=== PATIENT | male | born 1980 | race Caucasian/White ===

== ENCOUNTER 2018-06-08 09:27 | Emergency (ER) | payer SELFPAY ==
[2018-06-08 09:30] VITALS: BP 147/79; PULSE 76; RESP 17; TEMP 36.9; O2SAT 100
--- NOTE | 2018-06-08 09:50 | ED.RN ---
LT BUTTOCKS NUMB DOWN THRU LT LEG. ABRASION TO LT FLANK.
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
[2018-06-08 10:32] LABS: Absolute Lymphocyte Count 1.17 X10^3/ul (0.83-4.51); Basophil# 0.01 X10^3/uL; Basophil% 0.2 % (0-1); Eosinophil# 0.14 X10^3/uL; Eosinophils% 2.4 % (0-5); Hematocrit 40.4 % (40-54); Hemoglobin 13.8 g/dl (13.0-16.5); Lymphocyte # 1.17 X10^3/ul (4.0); Lymphocyte % 19.7 % (19-41); Mean Corp Hgb Conc 34.2 g/gl (32-36); Mean Corpuscular Hgb 31.2 pg (27.0-32.0); Mean Corpuscular Volume 91.4 fL (80-94); Mean Platelet Vol. 10.1 fl (6.2-12.0); Monocyte# 0.58 X10^3/uL; Monocyte% 9.8 % (0-10); Neutrophil # 4.03 X10^3/uL (2.7-7.7); Neutrophil % 67.9 % (47-70); Platelet Count 194 K/mm3 (150-450); RBC Distribution Width CV 12.6 % (11.6-14.6); RBC Distribution Width SD 41.9 fl (35.1-43.9); Red Blood Count 4.42 M/mm3 (4.6-6.2); White Blood Count 5.9 K/mm3 (4.4-11.0)
[2018-06-08 10:33] LABS: POSITIVE COUNT NO; POSITIVE DIFFERENTIAL NO; POSITIVE MORPHOLOGY NO
[2018-06-08 10:39] LABS: International Normalized Ratio 1.1; Prothrombin Time (Protime)PT. 14.3 SECONDS (11.7-14.9)
[2018-06-08 10:40] LABS: Partial Thromboplast Time 26.9 Seconds (24.1-36.2)
[2018-06-08 10:44] LABS: Anion Gap 7 (5-15); BUN 10 mg/dL (7-18); BUN/Creat Ratio 10.2 RATIO (10-20); Calcium,Total 8.8 mg/dL (8.5-10.1); Chloride 106 mmol/L (98-107); Creatinine, Serum 0.98 mg/dL (0.70-1.30); EST Glomerular Filtration Rate 91 mL/min (>60); Est Glom Filt Rate - Afr Amer 110 mL/min (>60); Estimated Creatinine Clearance 8.61 ml/min; Glucose 86 mg/dL (74-106); Sodium Level 143 mmol/L (136-145)
[2018-06-08] MEDS: Morphine 4 MG/ML Syringe IV (10:56)
[2018-06-08] MEDS: Ondansetron 4 MG/2 ML Vial IV (10:56)
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
[2018-06-08 13:05] VITALS: BP 118/76; PULSE 76; RESP 18; O2SAT 98
[2018-06-08 13:45] VITALS: BP 119/78; PULSE 78; RESP 16; O2SAT 99
== END 2018-06-08 13:46 | disposition home or self-care (01) ==
PROVIDERS: Emergency Provider Emergency Medicine
DX: S20.222A Contusion of left back wall of thorax, initial encounter (principal); S30.0XXA Contusion of lower back and pelvis, initial encounter; S70.12XA Contusion of left thigh, initial encounter; S30.810A Abrasion of lower back and pelvis, initial encounter; S30.811A Abrasion of abdominal wall, initial encounter; S70.312A Abrasion, left thigh, initial encounter; V86.59XA Driver of other special all-terrain or other off-road motor vehicle injured in nontraffic accident, initial encounter; Y93.I9 Activity, other involving external motion; Y92.9 Unspecified place or not applicable; R20.0 Anesthesia of skin
CPT/HCPCS: 36415; 71260; 73552; 74177; 80048; 85025; 85610; 85730; 96374; 96375; 99282; Q9967; A4216; J2405

== ENCOUNTER 2018-06-13 10:58 | Emergency (ER) | payer SELFPAY ==
[2018-06-13 11:00] VITALS: BP 115/73; PULSE 86; RESP 16; TEMP 37; O2SAT 98; BMI 21.9
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
[2018-06-13 11:57] LABS: Mucous, Urine 0 SEEN /hpf (<or=2+); Red Blood Cells-Urine 0 SEEN /hpf (0-5); Squamous Epithelial Cells - UA 0 SEEN /hpf (0-5)
[2018-06-13 12:06] LABS: Color, Urine Yellow (Yellow); Glucose, Dipstick Normal (Normal); Ketone-Dipstick Negative (Negative); Leukocyte Esterase-Dipstick Negative /ul (Negative); Nitrite-Dipstick Negative (Negative); Occult Blood-Urine Negative /ul (Negative); Protein-Dipstick 30 mg/dl (Negative); Urine Bilirubin Dipstick Negative (Negative); Urine Clarity Sl. Cloudy (Clear); Urine Urobilinogen Normal (Normal)
[2018-06-13] MEDS: proMETHazine 25 MG/ML Syringe 6.25 MG IV (12:10)
[2018-06-13] MEDS: Morphine 4 MG/ML Syringe IV (12:10)
[2018-06-13 12:12] LABS: Bacteria RARE /hpf (None Seen); White Blood Cells 0-5 SEEN /hpf (0-5)
[2018-06-13 12:21] LABS: Absolute Lymphocyte Count 1.09 X10^3/ul (0.83-4.51); Basophil# 0.02 X10^3/uL; Basophil% 0.4 % (0-1); Eosinophil# 0.06 X10^3/uL; Eosinophils% 1.1 % (0-5); Hematocrit 38.2 % (40-54); Hemoglobin 12.9 g/dl (13.0-16.5); Lymphocyte # 1.09 X10^3/ul (4.0); Lymphocyte % 19.3 % (19-41); Mean Corp Hgb Conc 33.8 g/gl (32-36); Mean Corpuscular Volume 91.8 fL (80-94); Monocyte# 0.44 X10^3/uL; Monocyte% 7.8 % (0-10); Neutrophil # 4.03 X10^3/uL (2.7-7.7); Neutrophil % 71.2 % (47-70); Platelet Count 237 K/mm3 (150-450); RBC Distribution Width CV 12.4 % (11.6-14.6); RBC Distribution Width SD 40.3 fl (35.1-43.9); Red Blood Count 4.16 M/mm3 (4.6-6.2); White Blood Count 5.7 K/mm3 (4.4-11.0)
[2018-06-13 12:23] LABS: POSITIVE COUNT NO; POSITIVE DIFFERENTIAL NO; POSITIVE MORPHOLOGY NO
[2018-06-13 12:34] LABS: Anion Gap 6 (5-15); BUN 14 mg/dL (7-18); BUN/Creat Ratio 13.2 RATIO (10-20); Chloride 107 mmol/L (98-107); Creatinine, Serum 1.06 mg/dL (0.70-1.30); EST Glomerular Filtration Rate 83 mL/min (>60); Est Glom Filt Rate - Afr Amer 101 mL/min (>60); Estimated Creatinine Clearance 83.25 ml/min; Glucose 87 mg/dL (74-106); Potassium 4.7 mmol/L (3.5-5.1); Sodium Level 141 mmol/L (136-145)
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
--- NOTE | 2018-06-13 15:24 | ED.DEP ---
ED Disposition - Plan for ED Patient: Chief Complaint: Back Instructions: ED Contusion Back Prescriptions: Oxycodone HCl/Acetaminophen [Percocet 5/325] 1 tablet PO Q6H PRN PRN 3 Days #12 tablet PRN Reason: Pain Referrals: Care Physician,No Primary [Primary Care Provider] - Alexis Howell III, MD [STAFF PHYSICIAN] -
[2018-06-13 15:38] VITALS: BP 124/77; PULSE 71; RESP 14; O2SAT 98
== END 2018-06-13 15:41 | disposition home or self-care (01) ==
LOC: ED 12:16
PROVIDERS: Emergency Provider Emergency Medicine
DX: S30.0XXA Contusion of lower back and pelvis, initial encounter (principal); V86.95XA Unspecified occupant of 3- or 4- wheeled all-terrain vehicle (ATV) injured in nontraffic accident, initial encounter; Y93.I9 Activity, other involving external motion; Y92.9 Unspecified place or not applicable
CPT/HCPCS: 74177; 80048; 81001; 85025; 96374; 96375; 99283; Q9967; A4216

== ENCOUNTER 2021-07-13 18:33 | Emergency (ER) | payer OTHER, SELFPAY ==
[2021-07-13 18:35] VITALS: PULSE 63; RESP 16; TEMP 36.6; O2SAT 99; BMI 25.4
[2021-07-13] MEDS: DiphenhydrAMINE 50 MG/ML Syringe IV (18:40)
[2021-07-13] MEDS: MethylPREDNISolone 125 MG/2 ML Vial IV (18:40)
[2021-07-13] MEDS: Famotidine 200 MG/20 ML MDV 40 MG in 0.9% Normal Saline (Pres. free 6 ML 300 MG IV (19:11)
[2021-07-13 19:33] VITALS: BP 135/80; PULSE 81; RESP 19; O2SAT 98
[2021-07-13 21:00] VITALS: BP 119/81; PULSE 79; RESP 20; O2SAT 99
--- NOTE | 2021-07-13 21:33 | EDS_ITS ---
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 He states he was stung on the right elbow about 20 minutes prior to arrival and is noticed increased redness and swelling and slight difficulty breathing and therefore comes to the hospital for evaluation. He states that he has had this type of reaction in the past but no longer has an epinephrine pen. He does state he took Benadryl prior to arrival PFSH PFS Home Medications epinephrine 0.3 mg IM .once PRN #2 ea 07/13/21 [Rx Last Taken Unknown] prednisone 40 mg PO DAILY #10 tab 07/13/21 [Rx Last Taken Unknown] Allergy/AdvReac Type Severity Reaction Status Date / Time bee venom protein (honey bee) Allergy Anaphylaxis Verified 07/13/21 18:34 Social History Smoking Status: Never smoker ROS ROS ED Constitutional Constitutional ED: Denies chills or fever(s) ENT ENT ED: Denies sore throat Cardiovascular Cardiovascular: Denies chest pain or palpitations Respiratory/Chest Respiratory/Chest: Reports dyspnea Gastrointestinal Gastrointestinal: Denies nausea or vomiting Musculoskeletal Musculoskeletal: Reports myalgias Integumentary Reports rash Neurologic Neurologic: Denies headache(s) Allergic/Immunologic Allergic/Immunologic ED: Reports mouth swelling EXAM Physical Exam Const Vital Signs: 07/13/21 18:35 07/13/21 19:33 07/13/21 21:00 Temperature 97.9 F Temperature Source Temporal Pulse Rate 63 81 79 Respiratory Rate 16 19 H 20 H Blood Pressure 135/80 H 119/81 H Blood Pressure Mean 98 93 Pulse Ox 99 98 99 Oxygen Delivery Method Room Air Room Air Room Air Positive well nourished and well developed General Appearance ED: well developed HEENT HEENT Narrative: There is slight swelling to the lips but no tongue swelling oral lesions or obvious airway compromise Eyes PERRL and EOMs intact bilaterally Neck supple Chest Wall inspection of chest normal Resp normal respiratory effort and clear to auscultation bilaterally Cardio regular rate, regular rhythm and no murmurs Extremity Extremity Narrative: Patient has mild swelling to the right elbow consistent wi th report of insect sting but there is no retained stinger noted. No asymmetric edema no pitting edema negative Homans' sign bilaterally Neuro oriented x3 and CN's II-XII intact bilaterally Sensorium / Orientation: alert Psych mental status grossly normal Skin Skin Narrative: Patient has diffuse blanchable erythema with swelling consistent with insect sting and allergic reaction but no signs of infectious process Rashes: rashes noted MDM MDM MDM Narrative Medical decision making narrative: Patient presented to the ER with mild facial swelling but no overt respiratory distress. He did state he felt like he was having difficulty breathing however and therefore I did elect to perform IM epinephrine along with IV Solu-Medrol Benadryl and Pepcid. Patient was watched in the hospital for approximately 2 and half hours with no rebound and had resolution of symptoms. Therefore he will be placed on symptomatic medications and is safe for discharge Discharge Plan Triage Chief Complaint: Allergic Reaction ED Provider: Patric Plascencia Dx/Rx/DC Orders Clinical Impression: Allergic reaction to bee sting Instructions: ED BEE STING General Allergic Rxn Prescriptions: New prednisone 20 mg tablet 40 mg PO DAILY Qty: 10 RF: 0 epinephrine 0.3 mg/0.3 mL auto-injector 0.3 mg IM .once PRN (Reason: anaphylaxis) Qty: 2 RF: 0 Primary Care Provider: Care Physician,No Primary Referrals: Abigail Carter DO [STAFF PHYSICIAN] - 1 Week Care Physician,No Primary [Primary Care Provider] - Disposition Disposition: Home, Self Care
[2021-07-13 22:12] VITALS: BP 117/65; PULSE 89; RESP 18; O2SAT 99
== END 2021-07-13 22:13 | disposition home or self-care (01) ==
PROVIDERS: Emergency Provider Emergency Medicine
DX: T63.441A Toxic effect of venom of bees, accidental (unintentional), initial encounter (principal)
CPT/HCPCS: 96372; 96374; 96375; 99283; J7030; A4216; J3490

== ENCOUNTER → 2022-10-07 | Outpatient (CLI) | payer BC, SELFPAY ==
--- NOTE | 2022-10-07 07:23 | MRI_ITS ---
STUDY: MRI RIGHT SHOULDER REASON FOR EXAM: Male, 42 years old. Anterior shoulder pain. TECHNIQUE: Standardized fat and water weighted pulse sequences were obtained in all 3 orthogonal planes. COMPARISON: None. FINDINGS: Minimal supraspinatus tendinosis without a full-thickness tear (coronal series 6 images 11-15). Minimal infraspinatus tendinosis with thinning/attenuation without a full-thickness tear (coronal series 6 images 6-10). Subscapularis tendinosis with a distal longitudinal partial tear and medial subluxation of the long head of the biceps into the tear (hidden lesion) (axial series 3 images 11-17). Normal teres minor tendon. Normal supraspinatus muscle. Normal infraspinatus muscle. Normal subscapularis muscle. Normal teres minor muscle. Mild arthrosis of the glenohumeral joint (axial series 3 images 11-14). Normal humeral head and visualized proximal humerus. Normal biceps labral complex. Medial subluxation of the long head of the biceps as described above. Normal labrum. Normal capsulo- ligamentous complex. Normal rotator interval. AC joint hypertrophy with narrowing of the subacromial space. Bone marrow edema in the distal clavicle and adjacent acromion compatible with stress-related changes (coronal series 6 images 7-15). There is a Type II morphology (curved), with a neutral orientation. Small amount of subacromial-subdeltoid bursal fluid (coronal series 6 image 9). Normal visualized coracohumeral and coracoacromial ligaments. Normal quadrilateral space. Normal axillary space. Normal deltoid muscle. Normal trapezius muscle. MRI/Upper Ext Joint Only(Routine) IMPRESSION: Supraspinatus and infraspinatus tendinosis without a full-thickness tear. Subscapularis tendinosis with a distal longitudinal partial tear and medial subluxation of the long head biceps into the tear (hidden lesion). Mild arthrosis of the glenohumeral joint. AC joint hypertrophy with narrowing of the subacromial space. Bone marrow edema in the distal clavicle and adjacent acromion compatible with stress-related changes. Small glenohumeral joint effusion with minimal fluid in the subacromial-subdeltoid bursa. Electronically Signed: Jared Chang, at 10:15 EST ,
--- NOTE | 2022-10-07 07:40 | RAD_ITS ---
EXAM: XR ORBITS FOREIGN BODY CLINICAL INDICATION: Pre MRI clearance, Hx of metal to eyes TECHNIQUE: Frontal view(s) of the orbits. This report was created using [facility] report generation technology. COMPARISON: None. FINDINGS: BONES/JOINTS: No acute abnormality. SINUSES: Normal. No air-fluid levels. SOFT TISSUES: Normal. No radiopaque foreign body. RAD/Orbits for Foreign Body IMPRESSION: Normal orbital x-rays. No radiopaque foreign body in either orbit. Electronically Signed: Sam Cruz MD at 8:14 EST ,
== END | disposition home or self-care (01) ==
PROVIDERS: Referring Provider Physician Assistant Surgical; Visit Provider Physician Assistant Surgical
DX: M25.511 Pain in right shoulder (principal)
CPT/HCPCS: 70030; 73221

== ENCOUNTER → 2023-12-21 | Outpatient (CLI) | payer BC, SELFPAY ==
--- NOTE | 2023-12-21 10:08 | RAD_ITS ---
INDICATION: inflammatory polyarthropathy EXAMINATION/TECHNIQUE: X-RAY - XR Pelvis 1 or 2 Views COMPARISON: No relevant prior comparison study available FINDINGS: PELVIC BONES: No displaced fracture, destructive or sclerotic lesions. Note that overlapping bowel shadows may however obscure fine detail. Sacroiliac joints are unremarkable. No widening of the pubic symphysis. Mild sclerosis and irregularity of the pubic symphysis, however evaluation is limited due to overlying soft tissue. HIPS: Mild asymmetric joint space narrowing of the hips. No osteophytes or sclerosis. No displaced fracture seen in this frontal view. SOFT TISSUES: No soft tissue swelling or gas. RAD/Pelvis 1 or 2 Views IMPRESSION: No acute abnormalities. Mild sclerosis and irregularity of the pubic symphysis could indicate osteitis pubis, however evaluation is limited due to overlying soft tissue. Mild degenerative changes of the hips. Electronically Signed: Lorenzo Rader MD at 19:26 EST ,
--- NOTE | 2023-12-21 10:08 | RAD_ITS ---
INDICATION: inflammatory polyarthropathy EXAMINATION/TECHNIQUE: X-RAY - XR Spine Lumbar Min 4 Views COMPARISON: None. FINDINGS: VERTEBRAE: Preserved vertebral body height. No fracture. No spondylolisthesis. Preservation of the normal lumbar lordosis. Mild multilevel facet arthropathy. DISCS: Mild multilevel degenerative disc disease and spondylosis, most notably at L5-S1. INCLUDED ABDOMEN: Included bowel gas pattern is non-obstructive. RAD/L/S Spine Min 4 Views IMPRESSION: No evidence of lumbar spinal fracture or spondylolisthesis. Mild multilevel degenerative disc disease and spondylosis, most notably at L5-S1. Electronically Signed: Lorenzo Rader MD at 19:15 EST ,
[2023-12-21 12:18] LABS: Erythrocyte Sedimentation Rate 1 mm/hr (0-20)
[2023-12-21 12:21] LABS: Absolute Lymphocyte Count 1.53 X10^3/uL (0.83-4.51); Absolute Neutrophil Count 2.6 X10^3/uL (2.0-7.7); Basophil# 0.03 X10^3/uL; Basophil% 0.6 % (0-1); Eosinophil# 0.14 X10^3/uL; Eosinophils% 2.9 % (0-5); Hematocrit 43.1 % (40-54); Hemoglobin 14.2 g/dL (13.0-16.5); Lymphocyte # 1.53 X10^3/ul (0.83-4.51); Lymphocyte % 31.9 % (19-41); Mean Corp Hgb Conc 32.9 g/dL (32-36); Mean Corpuscular Hgb 30.7 pg (27.0-32.0); Mean Corpuscular Volume 93.1 fL (80-94); Mean Platelet Vol. 10.3 fl (6.2-12.0); Monocyte# 0.48 X10^3/uL; NRBC Flagged by Analyzer 0 % (0-5); Neutrophil % 54.4 % (47-70); Platelet Count 243 K/mm3 (150-450); RBC Distribution Width CV 12.6 % (11.6-14.6); Red Blood Count 4.63 M/mm3 (4.6-6.2); White Blood Count 4.8 K/mm3 (4.4-11.0)
[2023-12-21 12:44] LABS: ALB/GLOB Ratio 1.7 RATIO (0.9-2.4); AST(SGOT) 16 U/L (15-37); Alanine Aminotransfer ALT/SGPT 27 U/L (16-61); Albumin, Serum 4.7 g/dL (3.2-5.0); Alkaline Phosphatase 78 U/L (45-117); Anion Gap 5 (5-15); BUN 17 mg/dL (7-18); BUN/Creat Ratio 16.2 RATIO (10-20); CRP < 2.90 mg/L (0.0-3.0); Calcium,Total 9.3 mg/dL (8.5-10.1); Chloride 107 mmol/L (98-107); Creatinine, Serum 1.05 mg/dL (0.70-1.30); EST Glomerular Filtration Rate 82 mL/min (>60); Est Glom Filt Rate - Afr Amer 99 mL/min (>60); Globulin 2.7 g/dL (2.2-4.2); Glucose 103 mg/dL (74-106); Potassium 4.6 mmol/L (3.5-5.1); Protein, Total 7.4 g/dL (6.4-8.2); Rheumatoid Factor < 10.0 IU/mL (<15); Sodium Level 139 mmol/L (136-145)
[2023-12-21 13:23] LABS: Hepatitis B Surface Antibody Non-Reactive; Hepatitis B Surface Antigen Non-Reactive (Nonreactive); Hepatitis C Antibody Non-Reactive (Nonreactive)
[2023-12-22 13:08] LABS: ANTINUCLEAR ANTIBODIES DIRECT Negative (Negative)
[2023-12-27 17:07] LABS: CCP IgG Antibodies 6 units (0-19); HLA B27 Negative (.)
== END | disposition home or self-care (01) ==
PROVIDERS: PCP Internal Medicine; Referring Provider Internal Medicine Rheumatology; Visit Provider Internal Medicine Rheumatology
DX: M46.90 Unspecified inflammatory spondylopathy, site unspecified (principal); L30.9 Dermatitis, unspecified
CPT/HCPCS: 36415; 72110; 72170; 80053; 81374; 85025; 85652; 86038; 86140; 86200; 86431; 86706; 86803; 87340

== ENCOUNTER → 2023-12-22 | Outpatient (CLI) | payer BC, SELFPAY ==
--- OUTSIDE RECORDS SUMMARY | 2023-12-22 08:51 | XMS RPT_ITS | CCD ---
Author Name Unknown Address [address] [place] [address] Organization [facility] Care Team Providers Care Trimmer Meat Name Role Phone Amanuel Tate DO Primary Care Provider ADRY RUGGIERO Attending Unavailable ADRY RUGGIERO Admitting Unavailable TATE, AMANUEL L Primary Care Unavailable HANNAH, YUMI Attending Unavailable TATE, AMANUEL L Primary Care Unavailable ADRY RUGGIERO Referring Unavailable TATE, AMANUEL L Primary Care Unavailable TATE, AMANUEL L Primary Care Unavailable TEDDY BEAR Referring Unavailable LAINE JON Attending Unavailable TATE, AMANUEL L Primary Care Unavailable HANNAH, YUMI Attending Unavailable TATE, AMANUEL L Primary Care Unavailable ADRY RUGGIERO Attending Unavailable ADRY RUGGIERO Referring Unavailable TATE, AMANUEL L Primary Care Unavailable HANNAH, YUMI Referring Unavailable TATE, AMANUEL L Primary Care Unavailable HANNAH, YUMI Referring Unavailable TATE, AMANUEL L Primary Care Unavailable HANNAH, YUMI Referring Unavailable TATE, AMANUEL L Primary Care Unavailable HANNAH, YUMI Referring Unavailable ADRY RUGGIERO Attending Unavailable TATE, AMANUEL L Primary Care Unavailable HANNAH, YUMI Attending Unavailable TATE, AMANUEL L Primary Care Unavailable TATE, AMANUEL L Primary Care Unavailable HANNAH, YUMI Attending Unavailable TATE, AMANUEL L Primary Care Unavailable HANNAH, YUMI Attending Unavailable TATE, AMANUEL L Primary Care Unavailable ADRY RUGGIERO Referring Unavailable TATE, AMANUEL L Primary Care Unavailable ADRY RUGGIERO Referring Unavailable ADRY RUGGIERO Attending Unavailable TATE, AMANUEL L Primary Care Unavailable HANNAH, YUMI Attending Unavailable TATE, AMANUEL L Primary Care Unavailable ADRY RUGGIERO Attending Unavailable TATE, AMANUEL L Primary Care Unavailable Allergies Allergy Classification Reported Allergen(s) Allergy Type Date of Onset Reaction(s) Facility (15 sources) Seasonal allergy; Translations: [SEASONAL ALLERGIES] Allergy to substance 3 Other: See Comments [facility] Medications Current Medications Medication Drug Class(es) Dates Sig (Normalized) Sig (Original) betamethasone 0.5 mg/ml / clotrimazole 10 mg/ml topical cream (2 sources) Azole Antifungal, Corticosteroid Start: 10-29-2023 clotrimazole-beta methasone (LOTRISONE) cream Indications: Eczema, unspecified type Apply to affected area two times a day. 45 g 3 10/29/2023 Active Completed/Discontinued Medications Medication Drug Class(es) Dates Sig (Normalized) Sig (Original) acetaminophen 500 mg oral tablet (7 sources) take 1 tablet by mouth every eight hours as needed acetaminophen (TYLENOL EXTRA STRENGTH) 500 mg tablet Take 500 mg by mouth every 8 hours as needed. 0 Active Problems Active Problems Problem Classification Problem Date Documented Date Episodic/Chronic Allergic reactions (2 sources) Eczema; Translations: [Dermatitis, unspecified] Onset: 11-08-2023 10-29-2023 Episodic Disorders of lipid metabolism (14 sources) Hypercholesterolemia; Translations: [Pure hypercholesterolemia, unspecified] Onset: 03-17-2014 03-17-2014 Chronic Osteoarthritis (1 source) Primary osteoarthritis, right shoulder; Translations: [Arthritis of right acromioclavicular joint] Onset: 11-19-2023 Chronic Other connective tissue disease (1 source) Ganglion of foot; Translations: [Ganglion, unspecified ankle and foot] 07-20-2023 Episodic Other inflammatory condition of skin (1 source) Psoriatic arthritis; Translations: [Arthropathic psoriasis, unspecified] 07-20-2023 Chronic Other inflammatory condition of skin (1 source) Arthropathic psoriasis, unspecified; Translations: [Psoriatic arthritis (HCC)] Onset: 07-20-2023 Chronic Other nervous system disorders (1 source) Other chronic pain; Translations: [Chronic right shoulder pain] Onset: 07-20-2023 Chronic Other non-traumatic joint disorders (7 sources) Pain of right acromioclavicular joint; Translations: [Pain in right shoulder] 07-20-2023 Episodic Other non-traumatic joint disorders (2 sources) Chronic pain of right upper limb; Translations: [Pain in right shoulder] 07-20-2023 Episodic Other upper respiratory disease (13 sources) Allergic rhinitis; Translations: [Allergic rhinitis, unspecified] Onset: 03-17-2014 03-17-2014 Chronic Screening and history of mental health and substance abuse codes (1 source) Patient encounter status; Translations: [Encounter for screening for depression] 10-29-2023 Episodic Past or Other Problems Problem Classification Problem Date Documented Date Episodic/Chronic Other connective tissue disease (13 sources) Lateral epicondylitis of bilateral humerus; Translations: [Lateral epicondylitis, right elbow] Onset: 03-17-2014 03-17-2014 Episodic Other connective tissue disease (1 source) Ganglion, unspecified ankle and foot; Translations: [Ganglion cyst of foot] Onset: 07-20-2023 Episodic Other connective tissue disease (1 source) Other muscle spasm; Translations: [Muscle spasms of neck] Onset: 07-20-2023 Episodic Other non-traumatic joint disorders (13 sources) Shoulder joint pain; Translations: [Pain in unspecified shoulder] Onset: 08-26-2011 08-26-2011 Episodic Other non-traumatic joint disorders (13 sources) Pain in elbow; Translations: [Pain in right elbow] Onset: 01-28-2012 01-28-2012 Episodic Other non-traumatic joint disorders (2 sources) Pain in right shoulder; Translations: [Arthralgia of right acromioclavicular joint] Onset: 07-20-2023 Episodic Spondylosis; intervertebral disc disorders; other back problems (20 sources) Acute back pain with sciatica; Translations: [Lumbago with sciatica, left side] Onset: 08-26-2011 06-08-2023 Episodic Results Test Name Value Interpretation Reference Range Facil ity Vital Signs Date Time Vital Sign Value Performing Clinician Joseph schofield 10-29-2023 07:34-0500 Body weight 64.41 kg Yumi Young APRN.CN P Work Phone: [facility] 10-29-2023 07:34-0500 Diastolic blood pressure 72 mm[Hg] Yumi Young APRN.CORN SHREDDER Work Phone: [facility] 10-29-2023 07:34-0500 Heart rate 72 /min Yumi Young APRN.CN P Work Phone: [facility] 10-29-2023 07:34-0500 SaO2% (BldA) [Mass fraction] 99 % Yumi Hannah POLICE SURGEON.CORN SHREDDER Work Phone: [facility] 10-29-2023 07:34-0500 Systolic blood pressure 100 mm[Hg] Yumi Hannah POLICE SURGEON.CORN SHREDDER Work Phone: [facility] 07-20-2023 07:36-0400 Body weight 62.6 kg Yumi Hannah POLICE SURGEON.CN P Work Phone: [facility] 07-20-2023 07:36-0400 Diastolic blood pressure 78 mm[Hg] Yumi Hannah POLICE SURGEON.CORN SHREDDER Work Phone: [facility] 07-20-2023 07:36-0400 Heart rate 75 /min Yumi Hannah POLICE SURGEON.CN P Work Phone: [facility] 07-20-2023 07:36-0400 SaO2% (BldA) [Mass fraction] 99 % Yumi Hannah POLICE SURGEON.CORN SHREDDER Work Phone: [facility] 07-20-2023 07:36-0400 Systolic blood pressure 99 mm[Hg] Yumi Hannah POLICE SURGEON.CORN SHREDDER Work Phone: [facility] 06-08-2023 08:30-0400 Body weight 63.05 kg Yumi Hannah POLICE SURGEON.CN P Work Phone: [facility] 06-08-2023 08:30-0400 Diastolic blood pressure 66 mm[Hg] Yumi Hannah POLICE SURGEON.CORN SHREDDER Work Phone: [facility] 06-08-2023 08:30-0400 Heart rate 78 /min Yumi Hannah POLICE SURGEON.CN P Work Phone: [facility] 06-08-2023 08:30-0400 SaO2% (BldA) [Mass fraction] 99 % Yumi Hannah POLICE SURGEON.CORN SHREDDER Work Phone: [facility] 06-08-2023 08:30-0400 Systolic blood pressure 110 mm[Hg] Yumi Hannah POLICE SURGEON.CORN SHREDDER Work Phone: [facility] Encounters Encounter Date Encounter Type Care Provider Facility Start: 12-20-2023 End: 12-20-2023 [facility] Facility:[facility] Start: 12-10-2023 End: 12-10-2023 ambulatory YUMI YOUNG Facility:[facility] Start: 11-26-2023 End: 11-26-2023 ambulatory LAINESai CESPEDESCIARA Facility:[facility] Start: 11-19-2023 End: 11-19-2023 ambulatory ADRY RUGGIERO Facility:[facility] Start: 11-08-2023 End: 11-09-2023 ambulatory AMANUEL TATE Facility:[facility] Start: 11-08-2023 Encounter for other preprocedural examination YUMI YOUNG [facility] Start: 10-29-2023 End: 10-29-2023 ambulatory Yumi Young APRN.CORN SHREDDER Work Phone: Internal [facility] Procedures Date Procedure Procedure Detail Performing Clinician Start: 10-11-2023 Us compl joint r-t w /image documentation Adry Ruggiero MD Work Phone: Start: 10-11-2023 Arthrocentesis aspir &/inj interm jt/burs w/us Adry Ruggiero MD Work Phone: Start: 09-06-2023 Mri any jt upper ext remity w/o contrast matrl Adry Ruggiero MD Work Phone: Start: 07-21-2023 Mri spinal canal lum bar w/o contrast material Yumi Young APRN.CORN SHREDDER Work Phone: Start: 06-18-2023 Radex spine lumbosac ral 2/3 views Yumi Young APRN.CORN SHREDDER Work Phone: Start: 07-25-2019 Lipid 1996 panel - S luke or Plasma Adry Ruggiero MD Work Phone: Plan of Treatment Date Care Activity Detail Author Start: 10-29-2024 Covid-19 Vaccine (#1) Covid-19 Vacci ne (#1) [facility] Immunizations Immunization Date Immunization Notes Care Provider Nicole reyes 05-29-2004 tetanus and diphther ia toxoids, adsorbed, preservative free, for adult use (2 Lf of tetanus toxoid and 2 Lf of diphtheria toxoid) Yumi Young APRN.CORN SHREDDER Work Phone: [facility] Work Phone: Payers Date Payer Category Payer Unknown MARK [employer]MS PPO [id number] 2022-Present [phone] [address] [place] [address] PPO [id number] 2022 Unknown [id number] 2010 Unknown [id number] Social History Date Type Detail Facility Start: 12-04-2011 [facility] Start: 12-04-2011 Tobacco use and exposure Smokeless tobacco non-user [facility] Start: 06-08-2023 End: 10-11-2023 Alcohol intake Current drinker of alcohol (finding) [facility] Start: 06-08-2023 End: 10-29-2023 History of Social function [facility] Work Phone: Start: 06-08-2023 End: 10-29-2023 Tobacco use panel [facility] Work Phone: National Score (1-100), lower number is lower risk 90 [facility] Work Phone: Start: 1980 Sex Assigned At Not on file C [facility] Clinical Notes 12-30-2022 to 12-10-2023 Yumi Young APRN.CORN SHREDDER - 10/29/2023 7:37 AM Adry Dodd MD - 10/11/2023 4:00 PM Adry Dodd MD - 10/11/2023 3:59 PM ESTTelephone Encounter - Kimberly Schofield Ma - 10/06/2023 8:05 AM EST Note Date & Type Note Facility 12-10-2023 Note HNO ID: [id number] Author: YUMI YOUNG APRN.QUOC Service: ? Author Type: Nurse Practitioner Type: Progress Notes Filed: 12/10/2023 12:14 Note Text: SUBJECTIVE Moe Hebert is a 43 year old male here today for a check up on his medical problems. Chief Complaint Patient presents with: Medication Request: needs updated epic pen Forms: [facility] and rash is coming back on forearms Pain: left buttocks clarisa horse that some time radiates down into leg HPI Moe Hebert is a 43 year old male. Here today for follow up. Needs a refill on his epi pen. Since last visit he had surgery on his shoulder with orthopedics. Doing well. Less pain. Surgery was 11/19. Issues with rash on the left arm, started this morning. Does not itch. Using steroid/antifungal combo. Off work from surgery right now. Going to see rheumatology 12/21. Issues with the left leg, left buttock. Stands up and then when he sits or lays a certain way causes pain in to the buttock and then causes radiation down the leg. Not as active because of surgery. No numbness, tingling. His medications were reviewed today and his list is now up to date. Medications Current Outpatient Medications Medication Sig clotrimazole-betamethasone (LOTRISONE) cream Apply to affected area two times a day. EPINEPHrine (EPIPEN 2-SUMANTH) 0.3 mg/0.3 mL auto-injector Inject 0.3 mL intramuscularly as needed. naproxen (NAPROSYN) 500 mg tablet Take 1 tablet by mouth two times a day with meals. Take with food. clobetasol (TEMOVATE) 0.05 % ointment Apply to affected area two times a day. No current facility-administered medications for this visit. ALLERGIES Allergen Reactions Seasonal Allergies Other: See Comments Nasal congestion, itchy watery eyes ACTIVE PROBLEM LIST Eczema - 11/08/2023 Lateral Epicondylitis of Both Elbows - 03/17/2014 Low Back Pain - 03/17/2014 Allergic Rhinitis - 03/17/2014 Hypercholesteremia - 03/17/2014 Elbow Pain, Right - 01/28/2012 Cervicalgia - 08/26/2011 Pain in Joint, Shoulder Region - 08/26/2011 Social History Tobacco Use Smoking status: Never Smokeless tobacco: Never Vaping Use Vaping Use: Never used Substance Use Topics Alcohol use: Yes Comment: 1-2 glasses a month usually Drug use: No Review of Systems Constitutional: Negative. Respiratory: Negative. Cardiovascular: Negative. Musculoskeletal: Positive for arthralgias. OBJECTIVE BP 110/60 Pulse 89 Wt 142 lb (64.4kg) SpO2 99% Physical Exam Vitals and nursing note reviewed. Constitutional: General: He is awake. He is not in acute distress. Appearance: Normal appearance. He is well-developed and well-groomed. He is not ill-appearing, toxic-appearing or diaphoretic. HENT: Head: Normocephalic. Right Ear: External ear normal. Left Ear: External ear normal. Nose: Nose normal. Eyes: General: Vision grossly intact. Conjunctiva/sclera: Conjunctivae normal. Pupils: Pupils are equal, round, and reactive to light. Neck: Vascular: No JVD. Trachea: Trachea normal. Cardiovascular: Rate and Rhythm: Normal rate and regular rhythm. Pulses: Normal pulses. Heart sounds: Normal heart sounds. No murmur heard. Pulmonary: Effort: Pulmonary effort is normal. No accessory muscle usage, prolonged expiration or respiratory distress. Breath sounds: Normal breath sounds. Musculoskeletal: Cervical back: Neck supple. Skin: General: Skin is warm and dry. Capillary Refill: Capillary refill takes less than 2 seconds. Comments: Left forearm with patch of erythema, not raised Neurological: General: No focal deficit present. Mental Status: He is alert and oriented to person, place, and time. Mental status is at baseline. Psychiatric: Attention and Perception: Attention and perception normal. Mood and Affect: Mood and affect normal. Speech: Speech normal. Behavior: Behavior normal. Behavior is cooperative. Thought Content: Thought content normal. Cognition and Memory: Cognition and memory normal. Judgment: Judgment normal. ASSESSMENT/PLAN: 1. Sciatic pain, left - ICD9: 724.3, ICD10: M54.32 (primary diagnosis) - Ice for localized tenderness - Warm moist heat for 20 min three times a day - NSAIDS- see orders - Patient given instructions use of medications as ordered, intermittent rest, intermittent use of heat, and stretches - Follow up in with me if symptoms persist or worsen - NAPROXEN 500 MG TABLET 2. Chronic right shoulder pain - ICD9: 719.41, 338.29, ICD10: M25.511, G89.29 Doing well post surgery. 3. Arthralgia of right acromioclavicular joint - ICD9: 719.41, ICD10: M25.511 4. Eczema, unspecified type - ICD9: 692.9, ICD10: L30.9 - discussed skin care of rash - follow up if symptoms persist or worsen. 5. 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 [facility] 11-26-2023 Note HNO ID: [id number] Author: Laine Jon PA-C Service: ? Author Type: Physician Instructor Bridge Type: Progress Notes Filed: 11/26/2023 12:52 PM Note Text: Laine Jon PA-C Department of Orthopaedics Orthopaedics [address] [facility] [address] Dept: [phone] Dept November 26, 2023 CHIEF COMPLAINT: Established Patient and Follow Up of the Right Shoulder (1 week post op right shoulder distal clavicle excision). ASSESSMENT: M25.511 Arthralgia of right acromioclavicular joint (primary encounter diagnosis) SUMMARY/PLAN: Patient presents just a little over 1 week status post right distal clavicle excision. He is doing much better states that the shoulder is a little sore but that he is already noticing some improvement . Getting some 8 out of 10 aching pain especially with forward elevation and abduction of the arm. He has been gently stretching in the shower but admits that he has been quite limited in his activities. Will remove his waterproof bandage today, incision can get wet in the shower, he can apply light lotion to the surgical site if needed. Encouraged him to continue working on gentle range of motion in the shoulder, he has a rend-idl-nqow shoulder jenifer that he can use. He can progress to resistance bands once his range of motion improves. Will see him next month as planned. Exam: Left shoulder incision site is well-approximated, there is mild but appropriate edema of the shoulder as well as some resolving ecchymosis section from the anterior aspect of the shoulder down to the pectoral region. Forward elevation of the arm about 130 degrees, patient is able to comfortably adduct the arm with minimal discomfort. Imaging: Deferred today Mr. Moe Hebert was advised as to contrast therapies and/or to take analgesics/anti-inflammatories as needed and all contraindications were reviewed. Supporting Information Below: Medications: Current Outpatient Medications Medication Sig clobetasol (TEMOVATE) 0.05 % ointment Apply to affected area two times a day. clotrimazole-betamethasone (LOTRISONE) cream Apply to affected area two times a day. HYDROcodone-acetaminophen (NORCO) 5-325 mg per tablet Take 1 tablet by mouth every 6 hours as needed for pain for up to 7 days. (Patient not taking: Reported on 11/26/2023) No current facility-administered medications for this visit. Allergies: Seasonal Allergies This note was partially generated using XimoXi voice recognition system, and there may be some incorrect words, spellings, and punctuation that were not noted in checking the note before saving. Laine Jon PA-C [facility] 11-26-2023 Note HNO ID: [id number] Author: Odette Hanson RN Service: ? Author Type: Registered Nurse Type: Progress Notes Filed: 11/26/2023 12:52 PM Note Text: Patient presents with: Right Shoulder - Established Patient, Follow Up: 1 week post op right shoulder distal clavicle excision Patient is here for post op appointment. States his shoulder is feeling okay - about the same since surgery. Denies taking any medication for pain. AMB ROOMING INTAKE FLOWSHEET DATA Pain Pain Level: 8 Pain Location: Shoulder-Right Description: Burning, Sore Duration Amount of Time: 1 (Since surgery) Duration Units: Weeks Frequency: Continuous Intervention/Comfort measure: Reposition, Cold, Heat Odette Hanson RN [facility] 11-19-2023 Note HNO ID: [id number] Author: Phoebe Jolly APRN.VENEER PRODUCTION MACHINE OPERATOR Service: Anesthesiology Author Type: Nurse Cash Application Clerk Type: Anesthesia Procedure Notes Filed: 11/19/2023 2:41 PM Note Text: ANESTHESIOLOGY PROCEDURE NOTE Airway General Information Procedure Start Time/Medication Administration: 11/19/2023 2:29 PM Patient location during procedure: OR Timeout Performed Pre-procedure: timeout performed Consent Obtained: Yes Patient identity confirmed: arm band, care freight team associate and patient Staffing VENEER PRODUCTION MACHINE OPERATOR: Phoebe Jolly APRN.VENEER PRODUCTION MACHINE OPERATOR Performed by: VENEER PRODUCTION MACHINE OPERATOR Indications and Patient Condition Indications for airway management: anesthesia Preoxygenated: yes anesthesia circuit Patient position: sniffing Method: asleep Cricoid Pressure: No Manual In-Line Stabilization: No Difficult Mask: No Final Airway Details Final airway type: endotracheal airway Final Endotracheal Airway: ETT Cuffed: yes Successful intubation technique: direct laryngoscopy Devices used: intubating stylet Endotracheal tube insertion site: oral Blade: Phyllis Blade size: #3 ETT size (mm): 7.5 Measured from: lips Measurement (cm): 22 Placement verified by: chest auscultation and capnometry Cormack-Lehane Classification: grade I - full view of glottis Number of attempts at approach: 1 SIGNATURE: Phoebe Jolly APRN.CRNA PATIENT NAME: Moe Hebert DATE: November 19, 2023 TIME: 2:40 PM CSN: [id number] [facility] 10-29-2023 Note HNO ID: [id number] Author: Yumi Young APRN.CORN SHREDDER Service: ? Author Type: Nurse Practitioner Type: Progress Notes Filed: 10/29/2023 8:19 AM Note Text: SUBJECTIVE Moe Hebert is a 43 year old male here today for a check up on his medical problems. Chief Complaint Patient presents with: Rash HPI Moe Hebert is a 43 year old male. Here for follow up on his rash to his arms. Improving. Currently using kenalog cream. Helping some but still noticing spots on the palms, in between fingers. Might be having shoulder surgery with ortho. Tried a steroid joint injection, only helped a few days. His medications were reviewed today and his list is now up to date. Medications Current Outpatient Medications Medication Sig clobetasol (TEMOVATE) 0.05 % ointment Apply to affected area two times a day. clotrimazole-betamethasone (LOTRISONE) cream Apply to affected area two times a day. No current facility-administered medications for this visit. ALLERGIES Allergen Reactions Seasonal Allergies Other: See Comments Nasal congestion, itchy watery eyes ACTIVE PROBLEM LIST Lateral Epicondylitis of Both Elbows - 03/17/2014 Low Back Pain - 03/17/2014 Allergic Rhinitis - 03/17/2014 Hypercholesteremia - 03/17/2014 Elbow Pain, Right - 01/28/2012 Cervicalgia - 08/26/2011 Pain in Joint, Shoulder Region - 08/26/2011 Social History Tobacco Use Smoking status: Never Smokeless tobacco: Never Vaping Use Vaping Use: Never used Substance Use Topics Alcohol use: Yes Comment: 1-2 glasses a month usually Drug use: No Review of Systems Respiratory: Negative. Cardiovascular: Negative. Musculoskeletal: Positive for arthralgias. Skin: Positive for rash. OBJECTIVE BP 100/72 Pulse 72 Wt 142 lb (64.4kg) SpO2 99% Physical Exam Vitals and nursing note reviewed. Constitutional: General: He is awake. He is not in acute distress. Appearance: Normal appearance. He is well-developed and well-groomed. He is not ill-appearing, toxic-appearing or diaphoretic. HENT: Head: Normocephalic. Right Ear: External ear normal. Left Ear: External ear normal. Nose: Nose normal. Eyes: General: Vision grossly intact. Conjunctiva/sclera: Conjunctivae normal. Pupils: Pupils are equal, round, and reactive to light. Neck: Vascular: No JVD. Trachea: Trachea normal. Pulmonary: Effort: Pulmonary effort is normal. No accessory muscle usage, prolonged expiration or respiratory distress. Musculoskeletal: Cervical back: Neck supple. Skin: General: Skin is warm and dry. Capillary Refill: Capillary refill takes less than 2 seconds. Neurological: General: No focal deficit present. Mental Status: He is alert and oriented to person, place, and time. Mental status is at baseline. Psychiatric: Attention and Perception: Attention and perception normal. Mood and Affect: Mood and affect normal. Speech: Speech normal. Behavior: Behavior normal. Behavior is cooperative. Thought Content: Thought content normal. Cognition and Memory: Cognition and memory normal. Judgment: Judgment normal. ASSESSMENT/PLAN: 1. Eczema, unspecified type - ICD9: 692.9, ICD10: L30.9 (primary diagnosis) - discussed skin care of rash - follow up if symptoms persist or worsen. - CLOBETASOL 0.05 % TOPICAL OINTMENT - CLOTRIMAZOLE-BETAMETHASONE 1 %-0.05 % TOPICAL CREAM 2. Depression screen - ICD9: V79.0, ICD10: Z13.31 Depression Screening PHQ-2 Score 10/29/2023 0 Depression screening tool completed and reviewed. Based on score and interview, patient is not at risk for depression. Screening tool discussed with patient, and I recommended no further intervention at this time. - DEPRESSION SCREENING/ASSESSMENT 3. Chronic right shoulder pain - ICD9: 719.41, 338.29, ICD10: M25.511, G89.29 Following with ortho Portions of this note have been entered by ancillary staff. I have reviewed and when necessary edited, so that they are an adequate record of my encounter with this patient Please note that parts of this document were created using voice recognition software and therefore may contain grammatical errors. Patient verbalizes understanding of instructions from today's visit and in agreement with treatment plan. Questions answered. Agrees to call the office if questions, concerns of issues with acute symptoms not improving or if they worsen. See diagnoses and orders for additional plan(s). Allergies and medications were reviewed, list was updated, and refills given if needed. Past medical, surgical, social, and family history reviewed and updated as appropriate. Encouraged proper diet AND exercise as well as compliance with taking medications. Age-appropriate health preventative measures were discussed. Return if symptoms worsen or fail to improve. Yumi Young APRN-CORN SHREDDER [facility] 10-29-2023 History of Presen t illness Narrative SUBJECTIVE Moe Hebert is a 43 year old male here today for a check up on his medical problems. Chief Complaint Patient presents with: Rash HPI Moe Hebert is a 43 year old male. Here for follow up on his rash to his arms. Improving. Currently using kenalog cream. Helping some but still noticing spots on the palms, in between fingers. Might be having shoulder surgery with ortho. Tried a steroid joint injection, only helped a few days. His medications were reviewed today and his list is now up to date. Medications Current Outpatient Medications Medication Sig clobetasol (TEMOVATE) 0.05 % ointment Apply to affected area two times a day. clotrimazole-betamethasone (LOTRISONE) cream Apply to affected area two times a day. No current facility-administered medications for this visit. ALLERGIES Allergen Reactions Seasonal Allergies Other: See Comments Nasal congestion, itchy watery eyes ACTIVE PROBLEM LIST Lateral Epicondylitis of Both Elbows - 03/17/2014 Low Back Pain - 03/17/2014 Allergic Rhinitis - 03/17/2014 Hypercholesteremia - 03/17/2014 Elbow Pain, Right - 01/28/2012 Cervicalgia - 08/26/2011 Pain in Joint, Shoulder Region - 08/26/2011 Social History Tobacco Use Smoking status: Never Smokeless tobacco: Never Vaping Use Vaping Use: Never used Substance Use Topics Alcohol use: Yes Comment: 1-2 glasses a month usually Drug use: No Review of Systems Respiratory: Negative. Cardiovascular: Negative. Musculoskeletal: Positive for arthralgias. Skin: Positive for rash. OBJECTIVE BP 100/72 Pulse 72 Wt 142 lb (64.4kg) SpO2 99% Physical Exam Vitals and nursing note reviewed. Constitutional: General: He is awake. He is not in acute distress. Appearance: Normal appearance. He is well-developed and well-groomed. He is not ill-appearing, toxic-appearing or diaphoretic. HENT: Head: Normocephalic. Right Ear: External ear normal. Left Ear: External ear normal. Nose: Nose normal. Eyes: General: Vision grossly intact. Conjunctiva/sclera: Conjunctivae normal. Pupils: Pupils are equal, round, and reactive to light. Neck: Vascular: No JVD. Trachea: Trachea normal. Pulmonary: Effort: Pulmonary effort is normal. No accessory muscle usage, prolonged expiration or respiratory distress. Musculoskeletal: Cervical back: Neck supple. Skin: General: Skin is warm and dry. Capillary Refill: Capillary refill takes less than 2 seconds. Neurological: General: No focal deficit present. Mental Status: He is alert and oriented to person, place, and time. Mental status is at baseline. Psychiatric: Attention and Perception: Attention and perception normal. Mood and Affect: Mood and affect normal. Speech: Speech normal. Behavior: Behavior normal. Behavior is cooperative. Thought Content: Thought content normal. Cognition and Memory: Cognition and memory normal. Judgment: Judgment normal. ASSESSMENT/PLAN: 1. Eczema, unspecified type - ICD9: 692.9, ICD10: L30.9 (primary diagnosis) - discussed skin care of rash - follow up if symptoms persist or worsen. - CLOBETASOL 0.05 % TOPICAL OINTMENT - CLOTRIMAZOLE-BETAMETHASONE 1 %-0.05 % TOPICAL CREAM 2. Depression screen - ICD9: V79.0, ICD10: Z13.31 Depression Screening PHQ-2 Score 10/29/2023 0 Depression screening tool completed and reviewed. Based on score and interview, patient is not at risk for depression. Screening tool discussed with patient, and I recommended no further intervention at this time. - DEPRESSION SCREENING/ASSESSMENT 3. Chronic right shoulder pain - ICD9: 719.41, 338.29, ICD10: M25.511, G89.29 Following with ortho Portions of this note have been entered by ancillary staff. I have reviewed and when necessary edited, so that they are an adequate record of my encounter with this patient Please note that parts of this document were created using voice recognition software and therefore may contain grammatical errors. Patient verbalizes understanding of instructions from today's visit and in agreement with treatment plan. Questions answered. Agrees to call the office if questions, concerns of issues with acute symptoms not improving or if they worsen. See diagnoses and orders for additional plan(s). Allergies and medications were reviewed, list was updated, and refills given if needed. Past medical, surgical, social, and family history reviewed and updated as appropriate. Encouraged proper diet & exercise as well as compliance with taking medications. Age-appropriate health preventative measures were discussed. Return if symptoms worsen or fail to improve. VENKATA Ricardo documented in this encounter [facility] 10-11-2023 Note HNO ID: [id number] Author: Adry Ruggiero MD Service: ? Author Type: Physician Type: Progress Notes Filed: 11/04/2023 7:56 AM Note Text: Medium Joint Arthro/Inj: R AC Informed Consent Consent Obtained: Written Ragan Protocol A moment to CARE was completed. SIGN IN Personnel directly involved with the procedure wore the appropriate PPE. Special Equipment: Yes Patient/Surrogate Stated/Verified: Patient name, Date of , Relevant allergies and Intended procedure TIME OUT Intended patient and procedure match the source document(s). Consent documented and matches the intended procedure. Relevant labs, photos, and/or imaging studies have been reviewed. Correct side/site marked and visible. Medications required for procedure verified. No fire risk assessment and interventions applicable. No implant(s) inserted. 10/11/2023 4:07 PM The procedure site was prepped in the usual sterile fashion. Details:Musculoskeletal ultrasound was utilized to successfully localize placement of the injection needle at the appropriate site. Ultrasound images demonstrating local vasculature and demonstrating injection of solution were saved. Medications: 6 mg betamethasone acetate-betamethasone sodium phosphate 6 mg/mL Anesthetics: 1 mL lidocaine (PF) 10 mg/mL (1 %) Outcome: tolerated well, no immediate complications Post-injection instructions were reviewed with the patient and the patient voiced understanding of these instructions. SIGN OUT All instruments, equipment, possible retained foreign bodies accounted for. [facility] 10-11-2023 Note HNO ID: [id number] Author: Adry Ruggiero MD Service: ? Author Type: Physician Type: Progress Notes Filed: 11/04/2023 7:56 AM Note Text: Adry Ruggiero MD Department of Orthopaedics [facility] [address] [facility] [address] Dept: [phone] Dept October 11, 2023 CHIEF COMPLAINT: Established Patient of the Right Shoulder (US guided injection right shoulder) HPI: Patient is here for an ultrasound guided injection to the right shoulder. ASSESSMENT: M25.511 Arthralgia of right acromioclavicular joint (primary encounter diagnosis) PLAN: Patient here for an ultrasound-guided AC joint injection. Mr. Moe Hebert was advised as to contrast therapies and/or to take analgesics/anti-inflammatories as needed and all contraindications were reviewed. OBJECTIVE: Mr. Moe Hebert is a pleasant 43 year old in no apparent distress. Gen:There were no vitals taken for this visit. Imaging: IMPRESSION: Rotator cuff tendinosis with subscapularis low-grade interstitial tearing. Inferior labral tear with subcentimeter paralabral cysts. Prior distal clavicle resection versus osteolysis. Mild subdeltoid/subacromial bursitis. Planetarium Technician: PSCB Transcribe Date/Time: Sep 06 2023 10:48A Dictated by : FRANKIE PATEL MD This examination was interpreted and the report reviewed and electronically signed by: SINDHU FANG MD on Sep 06 2023 2:40PM EST Results-Findings * * *Final Report* * * DATE OF EXAM: Sep 06 2023 9:15AM [facility] 0240 - MRI SHOULDER WO IVCON RT / PROCEDURE REASON: Arthralgia of right acromioclavicular joint * * * * Physician Interpretation * * * * EXAMINATION: MRI SHOULDER WO IVCON RT HISTORY: Right shoulder pain. Shoulder surgery on 12/01/2022. TECHNIQUE: Routine non-contrast MRI of the shoulder. MQ: MRS_1A COMPARISON: Shoulder radiograph 07/20/2023; MRI right shoulder 10/07/2022 RESULT: TENDONS: Rotator cuff tendons: -Supraspinatus: Intact with moderate tendinosis -Infraspinatus: Intact with moderate tendinosis -Subscapularis: Low grade interstitial tearing involving the superior third of the tendon with background tendinosis -Teres Minor: Intact tendon Biceps (Long head) Tendon: Intact , with normal course MUSCLES: Rotator cuff muscles: -Supraspinatus: Preserved bulk and no fatty changes. -Infraspinatus: Preserved bulk and no fatty changes. -Subscapularis: Preserved bulk and no fatty changes. -Teres Minor: Preserved bulk and no fatty changes. Other muscles: Preserved signal and bulk in the deltoid. JOINTS: Glenohumeral Joint: -Labrum: Tear in the inferior labrum with subcentimeter paralabral cysts (series 6 image 14). -Cartilage: Normal -Joint Fluid: No effusion . No synovitis. Acromioclavicular Joint: Changes of distal clavicular resection versus osteolysis bone marrow edema in the distal clavicle and adjacent acromion. BONES AND MARROW: No evidence of fracture or suspicious bone marrow replacing process . Reactive subcortical cystic changes at the greater tuberosity. OTHER: Subdeltoid/Subacromial Bursa: Mild bursal distention /thickening Other: No other significant findings. Supporting Subjective Information Below: Past Surgical History: PAST SURGICAL HISTORY Procedure Laterality Date EXTRACTION ERUPTED TOOTH wisdom teeth SHOULDER SURGERY HX 12/01/2022 [facility] Medications: Current Outpatient Medications Medication Sig triamcinolone acetonide (KENALOG) 0.1 % cream Apply 1 application to affected area three times a day. Apply sparingly to area for rash/itching. No current facility-administered medications for this visit. Allergies: Seasonal Allergies ROS: General (negative for fatigue, malaise, weight loss/gain) HEENT (negative for headache, earache, recent vision changes, sinus pain, sore throat) Respiratory (no recent shortness of breath, hemoptysis) CV (negative for chest tightness, palpitations) Musculoskeletal (see HPI) Psych (no depression, anxiety) Adry Ruggiero MD [facility] 10-11-2023 History of Presen t illness Narrative Associated Order(s): Medium Joint Arthro/Inj: R AC Post-Procedure Diagnose(s): Arthralgia of right acromioclavicular joint Medium Joint Arthro/Inj: R AC Informed Consent Consent Obtained: Written Ragan Protocol A moment to CARE was completed. SIGN IN Personnel directly involved with the procedure wore the appropriate PPE. Special Equipment: Yes Patient/Surrogate Stated/Verified: Patient name, Date of , Relevant allergies and Intended procedure TIME OUT Intended patient and procedure match the source document(s). Consent documented and matches the intended procedure. Relevant labs, photos, and/or imaging studies have been reviewed. Correct side/site marked and visible. Medications required for procedure verified. No fire risk assessment and interventions applicable. No implant(s) inserted. 10/11/2023 4:07 PM The procedure site was prepped in the usual sterile fashion. Details:Musculoskeletal ultrasound was utilized to successfully localize placement of the injection needle at the appropriate site. Ultrasound images demonstrating local vasculature and demonstrating injection of solution were saved. Medications: 6 mg betamethasone acetate-betamethasone sodium phosphate 6 mg/mL Anesthetics: 1 mL lidocaine (PF) 10 mg/mL (1 %) Outcome: tolerated well, no immediate complications Post-injection instructions were reviewed with the patient and the patient voiced understanding of these instructions. SIGN OUT All instruments, equipment, possible retained foreign bodies accounted for. Adry Ruggiero MD Department of Orthopaedics Orthopa[facility] [address] [facility] [address] Dept: [phone] Dept October 11, 2023 CHIEF COMPLAINT: Established Patient of the Right Shoulder (US guided injection right shoulder) HPI: Patient is here for an ultrasound guided injection to the right shoulder. ASSESSMENT: M25.511 Arthralgia of right acromioclavicular joint (primary encounter diagnosis) PLAN: Patient here for an ultrasound-guided AC joint injection. Mr. Moe Hebert was advised as to contrast therapies and/or to take analgesics/anti-inflammatories as needed and all contraindications were reviewed. OBJECTIVE: Mr. Moe Hebert is a pleasant 43 year old in no apparent distress. Gen:There were no vitals taken for this visit. Imaging: IMPRESSION: Rotator cuff tendinosis with subscapularis low-grade interstitial tearing. Inferior labral tear with subcentimeter paralabral cysts. Prior distal clavicle resection versus osteolysis. Mild subdeltoid/subacromial bursitis. Planetarium Technician: PSCB Transcribe Date/Time: Sep 06 2023 10:48A Dictated by : FRANKIE PATEL MD This examination was interpreted and the report reviewed and electronically signed by: SINDHU FANG MD on Sep 06 2023 2:40PM EST Results-Findings * * *Final Report* * * DATE OF EXAM: Sep 06 2023 9:15AM [facility] 0240 - MRI SHOULDER WO IVCON RT / PROCEDURE REASON: Arthralgia of right acromioclavicular joint * * * * Physician Interpretation * * * * EXAMINATION: MRI SHOULDER WO IVCON RT HISTORY: Right shoulder pain. Shoulder surgery on 12/01/2022. TECHNIQUE: Routine non-contrast MRI of the shoulder. MQ: MRS_1A COMPARISON: Shoulder radiograph 07/20/2023; MRI right shoulder 10/07/2022 RESULT: TENDONS: Rotator cuff tendons: -Supraspinatus: Intact with moderate tendinosis -Infraspinatus: Intact with moderate tendinosis -Subscapularis: Low grade interstitial tearing involving the superior third of the tendon with background tendinosis -Teres Minor: Intact tendon Biceps (Long head) Tendon: Intact , with normal course MUSCLES: Rotator cuff muscles: -Supraspinatus: Preserved bulk and no fatty changes. -Infraspinatus: Preserved bulk and no fatty changes. -Subscapularis: Preserved bulk and no fatty changes. -Teres Minor: Preserved bulk and no fatty changes. Other muscles: Preserved signal and bulk in the deltoid. JOINTS: Glenohumeral Joint: -Labrum: Tear in the inferior labrum with subcentimeter paralabral cysts (series 6 image 14). -Cartilage: Normal -Joint Fluid: No effusion . No synovitis. Acromioclavicular Joint: Changes of distal clavicular resection versus osteolysis bone marrow edema in the distal clavicle and adjacent acromion. BONES AND MARROW: No evidence of fracture or suspicious bone marrow replacing process . Reactive subcortical cystic changes at the greater tuberosity. OTHER: Subdeltoid/Subacromial Bursa: Mild bursal distention /thickening Other: No other significant findings. Supporting Subjective Information Below: Past Surgical History: PAST SURGICAL HISTORY Procedure Laterality Date EXTRACTION ERUPTED TOOTH wisdom teeth SHOULDER SURGERY HX 12/01/2022 [facility] Medications: Current Outpatient Medications Medication Sig triamcinolone acetonide (KENALOG) 0.1 % cream Apply 1 application to affected area three times a day. Apply sparingly to area for rash/itching. No current facility-administered medications for this visit. Allergies: Seasonal Allergies ROS: General (negative for fatigue, malaise, weight loss/gain) HEENT (negative for headache, earache, recent vision changes, sinus pain, sore throat) Respiratory (no recent shortness of breath, hemoptysis) CV (negative for chest tightness, palpitations) Musculoskeletal (see HPI) Psych (no depression, anxiety) Adry Ruggiero MD documented in this encounter [facility] 10-06-2023 Miscellaneous Notes Surgery scheduled as requested. Post op appointment scheduled and mailed to patient. Surgical request completed. Patient scheduled for Right shoulder distal clavicle excision on 11/19/23. documented in this encounter [facility] 10-05-2023 Note HNO ID: [id number] Author: Yumi Young APRN.CORN SHREDDER Service: ? Author Type: Nurse Practitioner Type: Progress Notes Filed: 10/05/2023 8:29 AM Note Text: SUBJECTIVE Moe Hebert is a 43 year old male here today for a check up on his medical problems. Chief Complaint Patient presents with: Derm Problem: itchy rash on bilateral lower arms for about 1 week HPI Moe Hebert is a 43 year old male. Here today for concerns of a rash on his arms. Onset about a week ago. Very itchy, skin is dry and cracked in certain spots. Has been trying to keep the spots moist, tried Vaseline, baby oil, not helping. It has been constant. Maybe worsening some. His medications were reviewed today and his list is now up to date. Medications Current Outpatient Medications Medication Sig triamcinolone acetonide (KENALOG) 0.1 % cream Apply 1 application to affected area three times a day. Apply sparingly to area for rash/itching. acetaminophen (TYLENOL EXTRA STRENGTH) 500 mg tablet Take 500 mg by mouth every 8 hours as needed. naproxen (NAPROSYN) 500 mg tablet Take 1 tablet by mouth twice daily with meals. cyclobenzaprine (FLEXERIL) 10 mg tablet Take 1 tablet by mouth three times daily as needed for muscle spasm. fluticasone (FLONASE) 50 mcg/actuation nasal spray Use 2 Sprays in each nostril once daily. Rinse mouth after use. Olopatadine (PATADAY) 0.2 % drop Use 1 Drop in both eyes twice daily. No current facility-administered medications for this visit. ALLERGIES Allergen Reactions Seasonal Allergies Other: See Comments Nasal congestion, itchy watery eyes ACTIVE PROBLEM LIST Lateral Epicondylitis of Both Elbows - 03/17/2014 Low Back Pain - 03/17/2014 Allergic Rhinitis - 03/17/2014 Hypercholesteremia - 03/17/2014 Elbow Pain, Right - 01/28/2012 Cervicalgia - 08/26/2011 Pain in Joint, Shoulder Region - 08/26/2011 Social History Tobacco Use Smoking status: Never Smokeless tobacco: Never Vaping Use Vaping Use: Never used Substance Use Topics Alcohol use: Yes Comment: 1-2 glasses a month usually Drug use: No Review of Systems Respiratory: Negative. Cardiovascular: Negative. Skin: Positive for rash. Negative for color change, pallor and wound. OBJECTIVE BP 100/72 Pulse 80 Wt 139 lb (63.1kg) SpO2 98% Physical Exam Vitals and nursing note reviewed. Constitutional: General: He is awake. He is not in acute distress. Appearance: Normal appearance. He is well-developed and well-groomed. He is not ill-appearing, toxic-appearing or diaphoretic. HENT: Head: Normocephalic. Right Ear: External ear normal. Left Ear: External ear normal. Nose: Nose normal. Eyes: General: Vision grossly intact. Conjunctiva/sclera: Conjunctivae normal. Pupils: Pupils are equal, round, and reactive to light. Neck: Vascular: No JVD. Trachea: Trachea normal. Cardiovascular: Pulses: Normal pulses. Pulmonary: Effort: Pulmonary effort is normal. No accessory muscle usage, prolonged expiration or respiratory distress. Musculoskeletal: Cervical back: Neck supple. Skin: General: Skin is warm and dry. Capillary Refill: Capillary refill takes less than 2 seconds. Findings: Erythema and rash present. Rash is macular and papular. Rash is not crusting, nodular, purpuric, pustular, scaling, urticarial or vesicular. Comments: Large erythematous dry maculopapular patches on arms. Neurological: General: No focal deficit present. Mental Status: He is alert and oriented to person, place, and time. Mental status is at baseline. Psychiatric: Attention and Perception: Attention and perception normal. Mood and Affect: Mood and affect normal. Speech: Speech normal. Behavior: Behavior normal. Behavior is cooperative. Thought Content: Thought content normal. Cognition and Memory: Cognition and memory normal. Judgment: Judgment normal. ASSESSMENT/PLAN: 1. Eczema, unspecified type - ICD9: 692.9, ICD10: L30.9 (primary diagnosis) - Topical steriod tx with Rx for steriod cream/ointment- see orders - Anti itch therapy of Calomine lotion, Oatmeal baths, and Oral Benydryl recommended prn - discussed skin care of rash - follow up if symptoms persist or worsen. - Kenalog injection in office, pretty severe eczema rash, will refer to rheumatology given concerns of possible autoimmune issues since he has previously stated he thinks he was diagnosed with psoriasis - TRIAMCINOLONE ACETONIDE 40 MG/ML SUSPENSION FOR INJECTION - TRIAMCINOLONE ACETONIDE 0.1 % TOPICAL CREAM - CONSULT TO RHEUM/IMMUN DISEASE 2. Psoriatic arthritis (HCC) - ICD9: 696.0, ICD10: L40.50 Multiple arthralgias might be psoriatic type arthritis, he would like to see rheumatology. - CONSULT TO RHEUM/IMMUN DISEASE Portions of this note have been entered by ancillary staff. I have reviewed and when necessary edited, so that they are an adequate record of my encounter with this patient Please (more content not included)... [facility] 10-04-2023 Note HNO ID: [id number] Author: Adry Ruggiero MD Service: ? Author Type: Physician Type: Progress Notes Filed: 10/04/2023 8:42 AM Note Text: Adry Ruggiero MD Department of [facility]opaedics [facility] [address] [facility] [address] Dept: [phone] Dept October 04, 2023 CHIEF COMPLAINT: Follow Up of the Right Shoulder and Results - Mri HPI Patient here to discuss MRI results. He is continuing to have pain in his right shoulder. Taking no med's for the pain. ASSESSMENT: M25.511 Arthralgia of right acromioclavicular joint (primary encounter diagnosis) PLAN: His current symptoms correlate to the AC joint on his MRI as well. We discussed a number of treatment options. We are going to try an ultrasound cortisone injection next week and then if symptoms do not improve, we will do an open distal clavicle excision towards the end of the year. The risks, benefits, alternatives and potential complications involving both of these were reviewed. Mr. Moe Hebert was advised as to contrast therapies and/or to take analgesics/anti-inflammatories as needed and all contraindications were reviewed. OBJECTIVE: Mr. Moe Hebert is a pleasant 43 year old in no apparent distress. Gen:There were no vitals taken for this visit. nl development, non obese, no deformities ENT: Normocephalic, normal hearing, moist mucosa CV: Pulses:Radial= 2+ and symmetric, capillary refill < 2 secs, no peripheral edema/varicosities Skin: no rash, bruising or lesions. Good turgor. Psych: cooperative and appropriate, alert and oriented x 3, good mood and affect. Musculoskeletal: Persistent, tenderness directly over the before meals and distal clavicle. Imaging: IMPRESSION: Rotator cuff tendinosis with subscapularis low-grade interstitial tearing. Inferior labral tear with subcentimeter paralabral cysts. Prior distal clavicle resection versus osteolysis. Mild subdeltoid/subacromial bursitis. Planetarium Technician: REID Transcribe Date/Time: Sep 06 2023 10:48A Dictated by : FRANKIE PATEL MD This examination was interpreted and the report reviewed and electronically signed by: SINDHU FANG MD on Sep 06 2023 2:40PM EST Results-Findings * * *Final Report* * * DATE OF EXAM: Sep 06 2023 9:15AM [facility] 0240 - MRI SHOULDER WO IVCON RT / PROCEDURE REASON: Arthralgia of right acromioclavicular joint * * * * Physician Interpretation * * * * EXAMINATION: MRI SHOULDER WO IVCON RT HISTORY: Right shoulder pain. Shoulder surgery on 12/01/2022. TECHNIQUE: Routine non-contrast MRI of the shoulder. MQ: MRS_1A COMPARISON: Shoulder radiograph 07/20/2023; MRI right shoulder 10/07/2022 RESULT: TENDONS: Rotator cuff tendons: -Supraspinatus: Intact with moderate tendinosis -Infraspinatus: Intact with moderate tendinosis -Subscapularis: Low grade interstitial tearing involving the superior third of the tendon with background tendinosis -Teres Minor: Intact tendon Biceps (Long head) Tendon: Intact , with normal course MUSCLES: Rotator cuff muscles: -Supraspinatus: Preserved bulk and no fatty changes. -Infraspinatus: Preserved bulk and no fatty changes. -Subscapularis: Preserved bulk and no fatty changes. -Teres Minor: Preserved bulk and no fatty changes. Other muscles: Preserved signal and bulk in the deltoid. JOINTS: Glenohumeral Joint: -Labrum: Tear in the inferior labrum with subcentimeter paralabral cysts (series 6 image 14). -Cartilage: Normal -Joint Fluid: No effusion . No synovitis. Acromioclavicular Joint: Changes of distal clavicular resection versus osteolysis bone marrow edema in the distal clavicle and adjacent acromion. BONES AND MARROW: No evidence of fracture or suspicious bone marrow replacing process . Reactive subcortical cystic changes at the greater tuberosity. OTHER: Subdeltoid/Subacromial Bursa: Mild bursal distention /thickening Other: No other significant findings. Localizer images: Unremarkable. Supporting Subjective Information Below: Past Surgical History: PAST SURGICAL HISTORY Procedure Laterality Date EXTRACTION ERUPTED TOOTH wisdom teeth SHOULDER SURGERY HX 12/01/2022 [facility] Medications: Current Outpatient Medications Medication Sig acetaminophen (TYLENOL EXTRA STRENGTH) 500 mg tablet Take 500 mg by mouth every 8 hours as needed. naproxen (NAPROSYN) 500 mg tablet Take 1 tablet by mouth twice daily with meals. cyclobenzaprine (FLEXERIL) 10 mg tablet Take 1 tablet by mouth three times daily as needed for muscle spasm. fluticasone (FLONASE) 50 mcg/actuation nasal spray Use 2 Sprays in each nostril once daily. Rinse mouth after use. Olopatadine (PATADAY) 0.2 % drop Use 1 Drop in both eyes twice daily. No current facility-administered medications for this visit. Allergies: Seasonal Allergies ROS: General (negative for fatigue, malaise, weight loss/gain) (more content not included)... [facility] 10-04-2023 History of Presen t illness Narrative Adry Ruggiero MD Department of Orthopaedics Orthopaedics [address] [facility] [address] Dept: [phone] Dept October 04, 2023 CHIEF COMPLAINT: Follow Up of the Right Shoulder and Results - Mri HPI Patient here to discuss MRI results. He is continuing to have pain in his right shoulder. Taking no med's for the pain. ASSESSMENT: M25.511 Arthralgia of right acromioclavicular joint (primary encounter diagnosis) PLAN: His current symptoms correlate to the AC joint on his MRI as well. We discussed a number of treatment options. We are going to try an ultrasound cortisone injection next week and then if symptoms do not improve, we will do an open distal clavicle excision towards the end of the year. The risks, benefits, alternatives and potential complications involving both of these were reviewed. Mr. Moe Hebert was advised as to contrast therapies and/or to take analgesics/anti-inflammatories as needed and all contraindications were reviewed. OBJECTIVE: Mr. Moe Hebert is a pleasant 43 year old in no apparent distress. Gen:There were no vitals taken for this visit. nl development, non obese, no deformities ENT: Normocephalic, normal hearing, moist mucosa CV: Pulses:Radial= 2+ and symmetric, capillary refill < 2 secs, no peripheral edema/varicosities Skin: no rash, bruising or lesions. Good turgor. Psych: cooperative and appropriate, alert and oriented x 3, good mood and affect. Musculoskeletal: Persistent, tenderness directly over the before meals and distal clavicle. Imaging: IMPRESSION: Rotator cuff tendinosis with subscapularis low-grade interstitial tearing. Inferior labral tear with subcentimeter paralabral cysts. Prior distal clavicle resection versus osteolysis. Mild subdeltoid/subacromial bursitis. Planetarium Technician: PSCB Transcribe Date/Time: Sep 06 2023 10:48A Dictated by : FRANKIE PATEL MD This examination was interpreted and the report reviewed and electronically signed by: SINDHU FANG MD on Sep 06 2023 2:40PM EST Results-Findings * * *Final Report* * * DATE OF EXAM: Sep 06 2023 9:15AM WRM [id number] - MRI SHOULDER WO IVCON RT / PROCEDURE REASON: Arthralgia of right acromioclavicular joint * * * * Physician Interpretation * * * * EXAMINATION: MRI SHOULDER WO IVCON RT HISTORY: Right shoulder pain. Shoulder surgery on 12/01/2022. TECHNIQUE: Routine non-contrast MRI of the shoulder. MQ: MRS_1A COMPARISON: Shoulder radiograph 07/20/2023; MRI right shoulder 10/07/2022 RESULT: TENDONS: Rotator cuff tendons: -Supraspinatus: Intact with moderate tendinosis -Infraspinatus: Intact with moderate tendinosis -Subscapularis: Low grade interstitial tearing involving the superior third of the tendon with background tendinosis -Teres Minor: Intact tendon Biceps (Long head) Tendon: Intact , with normal course MUSCLES: Rotator cuff muscles: -Supraspinatus: Preserved bulk and no fatty changes. -Infraspinatus: Preserved bulk and no fatty changes. -Subscapularis: Preserved bulk and no fatty changes. -Teres Minor: Preserved bulk and no fatty changes. Other muscles: Preserved signal and bulk in the deltoid. JOINTS: Glenohumeral Joint: -Labrum: Tear in the inferior labrum with subcentimeter paralabral cysts (series 6 image 14). -Cartilage: Normal -Joint Fluid: No effusion . No synovitis. Acromioclavicular Joint: Changes of distal clavicular resection versus osteolysis bone marrow edema in the distal clavicle and adjacent acromion. BONES AND MARROW: No evidence of fracture or suspicious bone marrow replacing process . Reactive subcortical cystic changes at the greater tuberosity. OTHER: Subdeltoid/Subacromial Bursa: Mild bursal distention /thickening Other: No other significant findings. Localizer images: Unremarkable. Supporting Subjective Information Below: Past Surgical History: PAST SURGICAL HISTORY Procedure Laterality Date EXTRACTION ERUPTED TOOTH wisdom teeth SHOULDER SURGERY HX 12/01/2022 [facility] Medications: Current Outpatient Medications Medication Sig acetaminophen (TYLENOL EXTRA STRENGTH) 500 mg tablet Take 500 mg by mouth every 8 hours as needed. naproxen (NAPROSYN) 500 mg tablet Take 1 tablet by mouth twice daily with meals. cyclobenzaprine (FLEXERIL) 10 mg tablet Take 1 tablet by mouth three times daily as needed for muscle spasm. fluticasone (FLONASE) 50 mcg/actuation nasal spray Use 2 Sprays in each nostril once daily. Rinse mouth after use. Olopatadine (PATADAY) 0.2 % drop Use 1 Drop in both eyes twice daily. No current facility-administered medications for this visit. Allergies: Seasonal Allergies ROS: General (negative for fatigue, malaise, weight loss/gain) HEENT (negative for headache, earache, recent vision changes, sinus pain, sore throat) Respiratory (no recent shortness of breath, hemoptysis) CV (negative for chest tightness, palpitations) Musculoskeletal (see HPI) Psych (no depression, anxiety) Adry Ruggiero MD documented in this encounter [facility] 09-24-2023 Miscellaneous Notes Pt calling in for results from MRI on 09/06. Pt would like a return call with results and plan.Soco Poole RN documented in this encounter [facility] 09-06-2023 Note HNO ID: [id number] Author: Sandy Wade RT(R) Service: ? Author Type: Technologist Type: Progress Notes Filed: 09/06/2023 9:10 AM Note Text: Radiology Service Progress Note PATIENT NAME: Moe Hebert DATE OF SERVICE: September 06, 2023 TIME: 9:10 AM PATIENT IDENTITY VERIFICATION COMPLETED USING TWO (2) IDENTIFIERS: Name and Date of confirmed by patient verbally. FALL SCREENING: Has the patient had 2 falls in the last year or 1 fall with injury or currently using an Ambulatory Assistive Device (Walker, Cane, Wheelchair, Crutches, etc.)? No PATIENT GENDER DATA: Male PATIENT RELEVANT IMPLANT DATA REVIEWED: Yes RADIOLOGY DEPARTMENT: MR; Exam(s) Completed: Upper MSK: Shoulder, right PERIPHERAL IV DATA: Not applicable SIGNED BY: LOUISE Shelley) September 06, 2023 9:10 AM [facility] 09-06-2023 History of Presen t illness Narrative Radiology Service Progress Note PATIENT NAME: Moe Hebert DATE OF SERVICE: September 06, 2023 TIME: 9:10 AM PATIENT IDENTITY VERIFICATION COMPLETED USING TWO (2) IDENTIFIERS: Name and Date of confirmed by patient verbally. FALL SCREENING: Has the patient had 2 falls in the last year or 1 fall with injury or currently using an Ambulatory Assistive Device (Walker, Cane, Wheelchair, Crutches, etc.)? No PATIENT GENDER DATA: Male PATIENT RELEVANT IMPLANT DATA REVIEWED: Yes RADIOLOGY DEPARTMENT: MR; Exam(s) Completed: Upper MSK: Shoulder, right PERIPHERAL IV DATA: Not applicable SIGNED BY: LOUISE Shelley) September 06, 2023 9:10 AM documented in this encounter [facility] 08-23-2023 Note HNO ID: [id number] Author: Soco Poole RN Service: ? Author Type: Registered Nurse Type: Progress Notes Filed: 08/23/2023 11:56 PM Note Text: Adry Ruggiero MD Department of Orthopaedics Orthopaedics [address] [facility] [address] Dept: [phone] Dept August 23, 2023 CHIEF COMPLAINT: New of the Right Shoulder (Rt shoulder pain) HPI Patient presents with: Right Shoulder - New: Rt shoulder pain AMB ROOMING INTAKE FLOWSHEET DATA Pain Pain Level: 2 Pain Location: Shoulder-Right Description: Aching Duration Amount of Time: 9 Duration Units: Months Frequency: Continuous Comments: movement exacerbates it to 10/10 Pt presents today with Rt shoulder pain 2/10, movement exacerbates pain to a 10/10 at times. He had Shoulder Surgery at [facility] with Dr. Omalley 12/01/2022 which he states helped with the strength in his shoulder but the pain is still there. 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 Xrays on 07/20/2023 in [facility]. ASSESSMENT: M25.511 Arthralgia of right acromioclavicular joint (primary encounter diagnosis) PLAN: I dont have any prior images, nor his operative note. It appears that he's having persistent AC joint symptoms. I'd like to get a new MRI of his shoulder. FOLLOW UP INSTRUCTIONS: Fu after MRI. We may consider an US injection, depending on the data I obtain. OBJECTIVE: Mr. Moe Hebert is a pleasant 42 year old in no apparent distress. Gen:There were no vitals taken for this visit. nl development, non obese, no deformities ENT: Normocephalic, normal hearing, moist mucosa CV: Pulses:Radial= 2+ and symmetric, capillary refill < 2 secs, no peripheral edema/varicosities Skin: no rash, bruising or lesions. Good turgor. Psych: cooperative and appropriate, alert and oriented x 3, good mood and affect. Musculoskeletal: Good ROM of the shoulder. Distinct tenderness at the Right AC joint. IMAGING: IMPRESSION: Widening of the acromioclavicular interval favored to represent distal clavicular osteolysis in the setting of known psoriatic arthritis, posttraumatic AC joint separation may be a differential consideration. Planetarium Technician: REID Transcribe Date/Time: Jul 22 2023 3:59P Dictated by : LENO ROSE MD This examination was interpreted and the report reviewed and electronically signed by: LENO ROSE MD on Jul 22 2023 4:05PM EST Results-Findings * * *Final Report* * * DATE OF EXAM: Jul 20 2023 8:35AM WOX [id number] - XR SHLDR >/=3V AP/DEBORAH AP/OTHR RT / PROCEDURE REASON: multiple diagnoses * * * * Physician Interpretation * * * * EXAM(s): XR SHLDR >/=3V AP/DEBORAH AP/OTHR RT EXAM DATE/TIME: 07/20/2023 8:35 AM HISTORY: 42 years old Clinical information: Chronic right shoulder pain Chronic right shoulder pain Chronic worsening right shoulder pain TECHNIQUE: Images: XR SHLDR >/=3V AP/DEBORAH AP/OTHR RT Comparison: Chest radiograph 07/25/2019 RESULT: Findings: Bone density appears well-preserved. No fractures or dislocations are seen. There is widening of the AC interval measuring up to 1 cm on AP view. No clavicular offset. Supporting Subjective Information Below: Past Medical History: PAST MEDICAL HISTORY Diagnosis Date Hyperlipidemia 02/2014 Seasonal allergies Past Surgical History: PAST SURGICAL HISTORY Procedure Laterality Date EXTRACTION ERUPTED TOOTH wisdom teeth SHOULDER SURGERY HX 12/01/2022 [facility] Family History: FAMILY HISTORY Problem Relation Age of Onset Breast Cancer Maternal Grandmother Diabetes Unknown NONE Social History: Social History Tobacco Use Smoking status: Never Smokeless tobacco: Never Vaping Use Vaping Use: Never used Substance Use Topics Alcohol use: Yes Comment: 1-2 glasses a month usually Drug use: No Medications: Current Outpatient Medications Medication Sig acetaminophen (TYLENOL EXTRA STRENGTH) 500 mg tablet Take 500 mg by mouth every 8 hours as needed. naproxen (NAPROSYN) 500 mg tablet Take 1 tablet by mouth twice daily with meals. cyclobenzaprine (FLEXERIL) 10 mg tablet Take 1 tablet by mouth three times daily as needed for muscle spasm. fluticasone (FLONASE) 50 mcg/actuation nasal spray Use 2 Sprays in each nostril once daily. Rinse mouth after use. Olopatadine (PATADAY) 0.2 % drop Use 1 Drop in both eyes twice daily. No current facility-administered medications for this visit. Allergies: Seasonal Allergies ROS: General (negative for fatigue, malaise, weight loss/gain) HEENT (negative for headache, earache, recent vision changes, sinus pain, sore throat) Respiratory (no recent shortness of breath, hemoptysis) CV (negative for chest tightness, palpitations) Musculoskeletal (see HPI) Psych (no depression, anxiety) REFERRING PHYSICIAN: Consultation requested by Yumi Young for an opinion regarding Right shoulder pain. (more content not included)... [facility] 08-23-2023 History of Presen t illness Narrative Adry Ruggiero MD Department of Orthopaedics Orthopaedics [address] [facility] [address] Dept: [phone] Dept August 23, 2023 CHIEF COMPLAINT: New of the Right Shoulder (Rt shoulder pain) HPI Patient presents with: Right Shoulder - New: Rt shoulder pain AMB ROOMING INTAKE FLOWSHEET DATA Pain Pain Level: 2 Pain Location: Shoulder-Right Description: Aching Duration Amount of Time: 9 Duration Units: Months Frequency: Continuous Comments: movement exacerbates it to 10/10 Pt presents today with Rt shoulder pain 2/10, movement exacerbates pain to a 10/10 at times. He had Shoulder Surgery at [facility] with Dr. Omalley 12/01/2022 which he states helped with the strength in his shoulder but the pain is still there. 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 Xrays on 07/20/2023 in [facility]. ASSESSMENT: M25.511 Arthralgia of right acromioclavicular joint (primary encounter diagnosis) PLAN: I dont have any prior images, nor his operative note. It appears that he's having persistent AC joint symptoms. I'd like to get a new MRI of his shoulder. FOLLOW UP INSTRUCTIONS: Fu after MRI. We may consider an US injection, depending on the data I obtain. OBJECTIVE: Mr. Moe Hebert is a pleasant 42 year old in no apparent distress. Gen:There were no vitals taken for this visit. nl development, non obese, no deformities ENT: Normocephalic, normal hearing, moist mucosa CV: Pulses:Radial= 2+ and symmetric, capillary refill < 2 secs, no peripheral edema/varicosities Skin: no rash, bruising or lesions. Good turgor. Psych: cooperative and appropriate, alert and oriented x 3, good mood and affect. Musculoskeletal: Good ROM of the shoulder. Distinct tenderness at the Right AC joint. IMAGING: IMPRESSION: Widening of the acromioclavicular interval favored to represent distal clavicular osteolysis in the setting of known psoriatic arthritis, posttraumatic AC joint separation may be a differential consideration. Planetarium Technician: REID Transcribe Date/Time: Jul 22 2023 3:59P Dictated by : LENO ROSE MD This examination was interpreted and the report reviewed and electronically signed by: LENO ROSE MD on Jul 22 2023 4:05PM EST Results-Findings * * *Final Report* * * DATE OF EXAM: Jul 20 2023 8:35AM WOX [id number] - XR SHLDR >/=3V AP/DEBORAH AP/OTHR RT / PROCEDURE REASON: multiple diagnoses * * * * Physician Interpretation * * * * EXAM(s): XR SHLDR >/=3V AP/DEBORAH AP/OTHR RT EXAM DATE/TIME: 07/20/2023 8:35 AM HISTORY: 42 years old Clinical information: Chronic right shoulder pain Chronic right shoulder pain Chronic worsening right shoulder pain TECHNIQUE: Images: XR SHLDR >/=3V AP/DEBORAH AP/OTHR RT Comparison: Chest radiograph 07/25/2019 RESULT: Findings: Bone density appears well-preserved. No fractures or dislocations are seen. There is widening of the AC interval measuring up to 1 cm on AP view. No clavicular offset. Supporting Subjective Information Below: Past Medical History: PAST MEDICAL HISTORY Diagnosis Date Hyperlipidemia 02/2014 Seasonal allergies Past Surgical History: PAST SURGICAL HISTORY Procedure Laterality Date EXTRACTION ERUPTED TOOTH wisdom teeth SHOULDER SURGERY HX 12/01/2022 [facility] Family History: FAMILY HISTORY Problem Relation Age of Onset Breast Cancer Maternal Grandmother Diabetes Unknown NONE Social History: Social History Tobacco Use Smoking status: Never Smokeless tobacco: Never Vaping Use Vaping Use: Never used Substance Use Topics Alcohol use: Yes Comment: 1-2 glasses a month usually Drug use: No Medications: Current Outpatient Medications Medication Sig acetaminophen (TYLENOL EXTRA STRENGTH) 500 mg tablet Take 500 mg by mouth every 8 hours as needed. naproxen (NAPROSYN) 500 mg tablet Take 1 tablet by mouth twice daily with meals. cyclobenzaprine (FLEXERIL) 10 mg tablet Take 1 tablet by mouth three times daily as needed for muscle spasm. fluticasone (FLONASE) 50 mcg/actuation nasal spray Use 2 Sprays in each nostril once daily. Rinse mouth after use. Olopatadine (PATADAY) 0.2 % drop Use 1 Drop in both eyes twice daily. No current facility-administered medications for this visit. Allergies: Seasonal Allergies ROS: General (negative for fatigue, malaise, weight loss/gain) HEENT (negative for headache, earache, recent vision changes, sinus pain, sore throat) Respiratory (no recent shortness of breath, hemoptysis) CV (negative for chest tightness, palpitations) Musculoskeletal (see HPI) Psych (no depression, anxiety) REFERRING PHYSICIAN: Consultation requested by Yumi Young for an opinion regarding Right shoulder pain. My final recommendations will be communicated back to the requesting physician by way of shared Medical record or letter to requesting physician via US mail. Yumi Young [address] [address] Amanuel Tate DO [address] [address] Adry Ruggiero MD documented in this encounter [facility] 07-26-[address] Ruggiero does not address back pain/issues and would need to be referred elsewhere to [facility] He will see patient for the shoulder issues. Please place the referral. Patient is aware and will hold off on the back issue referral until he has had a shoulder addressed. At this point ortho would be more beneficial for him to see so it is okay to hold off on rheumatology at this time. PATIENT NOTIFIED OF SAME. He is scheduled to see Rheu on 08/16/23 and ortho on 08/23/23 for back pain. He is not scheduled to see ortho for shoulder pain as of this time. He is concerned about cost of co-pay to see a specialist, states it is $60 out of pocket. Does he still need to see Rheu? Please call patient and see when he is seeing ortho with [facility] for his back. 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 documented in this encounter [facility] 07-21-2023 Note HNO ID: [id number] Author: Sandy Wade RT(Talisha) Service: ? Author Type: Technologist Type: Progress Notes Filed: 07/21/2023 8:14 AM Note Text: Radiology Service Progress Note PATIENT NAME: Moe Hebert DATE OF SERVICE: July 21, 2023 TIME: 8:13 AM PATIENT IDENTITY VERIFICATION COMPLETED USING TWO (2) IDENTIFIERS: Name and Date of confirmed by patient verbally. FALL SCREENING: Has the patient had 2 falls in the last year or 1 fall with injury or currently using an Ambulatory Assistive Device (Walker, Cane, Wheelchair, Crutches, etc.)? No PATIENT GENDER DATA: Male PATIENT RELEVANT IMPLANT DATA REVIEWED: Yes RADIOLOGY DEPARTMENT: MR; Exam(s) Completed: Spine: Lumbar spine PERIPHERAL IV DATA: Not applicable SIGNED BY: RT Karsten(Talisha) July 21, 2023 8:13 AM [facility] 07-21-2023 History of Presen t illness Narrative Radiology Service Progress Note PATIENT NAME: Moe Hebert DATE OF SERVICE: July 21, 2023 TIME: 8:13 AM PATIENT IDENTITY VERIFICATION COMPLETED USING TWO (2) IDENTIFIERS: Name and Date of confirmed by patient verbally. FALL SCREENING: Has the patient had 2 falls in the last year or 1 fall with injury or currently using an Ambulatory Assistive Device (Walker, Cane, Wheelchair, Crutches, etc.)? No PATIENT GENDER DATA: Male PATIENT RELEVANT IMPLANT DATA REVIEWED: Yes RADIOLOGY DEPARTMENT: MR; Exam(s) Completed: Spine: Lumbar spine PERIPHERAL IV DATA: Not applicable SIGNED BY: RT Karsten(R) July 21, 2023 8:13 AM documented in this encounter [facility] 07-20-2023 Note HNO ID: [id number] Author: Melissa Hector RT(R) Service: ? Author Type: Right Of Way Maintenance Supervisor Type: Progress Notes Filed: 07/20/2023 8:35 AM Note Text: Radiology Service Progress Note PATIENT NAME: Moe Hebert DATE OF SERVICE: July 20, 2023 TIME: 8:26 AM PATIENT IDENTITY VERIFICATION COMPLETED USING TWO (2) IDENTIFIERS: Name and Date of confirmed by patient verbally. FALL SCREENING: Has the patient had 2 falls in the last year or 1 fall with injury or currently using an Ambulatory Assistive Device (Walker, Cane, Wheelchair, Crutches, etc.)? No PATIENT GENDER DATA: Male PATIENT RELEVANT IMPLANT DATA REVIEWED: Yes RADIOLOGY DEPARTMENT: General X-ray: Exam(s) Completed: Upper Extremity X-Ray(s): Shoulder, AP / TRUE AP right Y-view PERIPHERAL IV DATA: Not applicable SIGNED BY: RT Marge(Talisha) July 20, 2023 8:26 AM [facility] 07-20-2023 Note HNO ID: [id number] Author: Yumi Young APRN.CORN SHREDDER Service: ? Author Type: Nurse Practitioner Type: Progress Notes Filed: 07/20/2023 10:22 AM Note Text: Consult toSUBJECTIVE Moe Hebert is a 42 year old male here today acutely. Chief Complaint Patient presents with: Pain (Shoulder Pain): right shoulder no injury HPI Moe Hebert is an 42 year old male presents today for shoulder pain. Onset was a few years ago, worse the last few weeks. It is localized to top of the shoulder, distally over the AC joint area. It does not radiate. It is constant. No significant trauma that patient is aware of. Denies numbness, tingling in the arm. Taking tylenol extra strength, takes the edge off. Recent prednisone taper in May. He does have a history of psoriasis per patient. He also notes having a lump on the left foot to the outside. Not warm to touch or red. Painful if he puts a lot of pressure on it. His medications were reviewed today and his list is now up to date. Medications Current Outpatient Medications Medication Sig acetaminophen (TYLENOL EXTRA STRENGTH) 500 mg tablet Take 500 mg by mouth every 8 hours as needed. fluticasone (FLONASE) 50 mcg/actuation nasal spray Use 2 Sprays in each nostril once daily. Rinse mouth after use. Olopatadine (PATADAY) 0.2 % drop Use 1 Drop in both eyes twice daily. naproxen (NAPROSYN) 500 mg tablet Take 1 tablet by mouth twice daily with meals. cyclobenzaprine (FLEXERIL) 10 mg tablet Take 1 tablet by mouth three times daily as needed for muscle spasm. No current facility-administered medications for this visit. ALLERGIES Allergen Reactions Seasonal Allergies Other: See Comments Nasal congestion, itchy watery eyes ACTIVE PROBLEM LIST Lateral Epicondylitis of Both Elbows - 03/17/2014 Low Back Pain - 03/17/2014 Allergic Rhinitis - 03/17/2014 Hypercholesteremia - 03/17/2014 Elbow Pain, Right - 01/28/2012 Cervicalgia - 08/26/2011 Pain in Joint, Shoulder Region - 08/26/2011 Social History Tobacco Use Smoking status: Never Smokeless tobacco: Never Substance Use Topics Alcohol use: Yes Comment: 1-2 glasses a month usually Drug use: No Review of Systems Respiratory: Negative. Cardiovascular: Negative. Musculoskeletal: Positive for arthralgias and myalgias. Negative for joint swelling. OBJECTIVE BP 99/78 Pulse 75 Wt 138 lb (62.6kg) SpO2 99% Physical Exam Vitals and nursing note reviewed. Constitutional: General: He is awake. He is not in acute distress. Appearance: Normal appearance. He is well-developed and well-groomed. He is not ill-appearing, toxic-appearing or diaphoretic. HENT: Head: Normocephalic. Right Ear: External ear normal. Left Ear: External ear normal. Nose: Nose normal. Eyes: General: Vision grossly intact. Conjunctiva/sclera: Conjunctivae normal. Pupils: Pupils are equal, round, and reactive to light. Neck: Vascular: No JVD. Trachea: Trachea normal. Cardiovascular: Rate and Rhythm: Normal rate and regular rhythm. Pulses: Normal pulses. Heart sounds: Normal heart sounds. No murmur heard. Pulmonary: Effort: Pulmonary effort is normal. No accessory muscle usage, prolonged expiration or respiratory distress. Breath sounds: Normal breath sounds. Musculoskeletal: Right shoulder: Deformity (small amount of bony enlargement palpable over acromion) present. No swelling, effusion, laceration, tenderness, bony tenderness or crepitus. Normal range of motion. Normal strength. Normal pulse. Cervical back: Neck supple. Legs: Skin: General: Skin is warm and dry. Capillary Refill: Capillary refill takes less than 2 seconds. Neurological: General: No focal deficit present. Mental Status: He is alert and oriented to person, place, and time. Mental status is at baseline. Psychiatric: Attention and Perception: Attention and perception normal. Mood and Affect: Mood and affect normal. Speech: Speech normal. Behavior: Behavior normal. Behavior is cooperative. Thought Content: Thought content normal. Cognition and Memory: Cognition and memory normal. Judgment: Judgment normal. ASSESSMENT/PLAN: 1. Arthralgia of right acromioclavicular joint - ICD9: 719.41, ICD10: M25.511 (primary diagnosis) Pain is centered over the AC joint, suspect from past quad riding he has developed some traumatic arthritis and potentially has some associated tendonitis and/or bursitis. We will start NSAIDS, can ice or try heat. 2. Chronic right shoulder pain - ICD9: 719.41, 338.29, ICD10: M25.511, G89.29 See above, since chronic we can check an xray to ensure no severe arthritis. - XR SHOULDER GENERAL 3V OR MORE AP/TRUE AP/OTHER RIGHT - NAPROXEN 500 MG TABLET 3. Ganglion cyst of foot - ICD9: 727.43, ICD10: M67.479 4. Psoriatic arthritis (HCC) - ICD9: 696.0, ICD10: L40.50 He reports a history of psoriasis today, given his numerous arthralgias it would be beneficial to s (more content not included)... [facility] 07-20-2023 History of Presen t illness Narrative Images from the original note were not included. Consult toSUBJECTIVE Moe Hebert is a 42 year old male here today acutely. Chief Complaint Patient presents with: Pain (Shoulder Pain): right shoulder no injury HPI Moe Hebert is an 42 year old male presents today for shoulder pain. Onset was a few years ago, worse the last few weeks. It is localized to top of the shoulder, distally over the AC joint area. It does not radiate. It is constant. No significant trauma that patient is aware of. Denies numbness, tingling in the arm. Taking tylenol extra strength, takes the edge off. Recent prednisone taper in May. He does have a history of psoriasis per patient. He also notes having a lump on the left foot to the outside. Not warm to touch or red. Painful if he puts a lot of pressure on it. His medications were reviewed today and his list is now up to date. Medications Current Outpatient Medications Medication Sig acetaminophen (TYLENOL EXTRA STRENGTH) 500 mg tablet Take 500 mg by mouth every 8 hours as needed. fluticasone (FLONASE) 50 mcg/actuation nasal spray Use 2 Sprays in each nostril once daily. Rinse mouth after use. Olopatadine (PATADAY) 0.2 % drop Use 1 Drop in both eyes twice daily. naproxen (NAPROSYN) 500 mg tablet Take 1 tablet by mouth twice daily with meals. cyclobenzaprine (FLEXERIL) 10 mg tablet Take 1 tablet by mouth three times daily as needed for muscle spasm. No current facility-administered medications for this visit. ALLERGIES Allergen Reactions Seasonal Allergies Other: See Comments Nasal congestion, itchy watery eyes ACTIVE PROBLEM LIST Lateral Epicondylitis of Both Elbows - 03/17/2014 Low Back Pain - 03/17/2014 Allergic Rhinitis - 03/17/2014 Hypercholesteremia - 03/17/2014 Elbow Pain, Right - 01/28/2012 Cervicalgia - 08/26/2011 Pain in Joint, Shoulder Region - 08/26/2011 Social History Tobacco Use Smoking status: Never Smokeless tobacco: Never Substance Use Topics Alcohol use: Yes Comment: 1-2 glasses a month usually Drug use: No Review of Systems Respiratory: Negative. Cardiovascular: Negative. Musculoskeletal: Positive for arthralgias and myalgias. Negative for joint swelling. OBJECTIVE BP 99/78 Pulse 75 Wt 138 lb (62.6kg) SpO2 99% Physical Exam Vitals and nursing note reviewed. Constitutional: General: He is awake. He is not in acute distress. Appearance: Normal appearance. He is well-developed and well-groomed. He is not ill-appearing, toxic-appearing or diaphoretic. HENT: Head: Normocephalic. Right Ear: External ear normal. Left Ear: External ear normal. Nose: Nose normal. Eyes: General: Vision grossly intact. Conjunctiva/sclera: Conjunctivae normal. Pupils: Pupils are equal, round, and reactive to light. Neck: Vascular: No JVD. Trachea: Trachea normal. Cardiovascular: Rate and Rhythm: Normal rate and regular rhythm. Pulses: Normal pulses. Heart sounds: Normal heart sounds. No murmur heard. Pulmonary: Effort: Pulmonary effort is normal. No accessory muscle usage, prolonged expiration or respiratory distress. Breath sounds: Normal breath sounds. Musculoskeletal: Right shoulder: Deformity (small amount of bony enlargement palpable over acromion) present. No swelling, effusion, laceration, tenderness, bony tenderness or crepitus. Normal range of motion. Normal strength. Normal pulse. Cervical back: Neck supple. Legs: Skin: General: Skin is warm and dry. Capillary Refill: Capillary refill takes less than 2 seconds. Neurological: General: No focal deficit present. Mental Status: He is alert and oriented to person, place, and time. Mental status is at baseline. Psychiatric: Attention and Perception: Attention and perception normal. Mood and Affect: Mood and affect normal. Speech: Speech normal. Behavior: Behavior normal. Behavior is cooperative. Thought Content: Thought content normal. Cognition and Memory: Cognition and memory normal. Judgment: Judgment normal. ASSESSMENT/PLAN: 1. Arthralgia of right acromioclavicular joint - ICD9: 719.41, ICD10: M25.511 (primary diagnosis) Pain is centered over the AC joint, suspect from past quad riding he has developed some traumatic arthritis and potentially has some associated tendonitis and/or bursitis. We will start NSAIDS, can ice or try heat. 2. Chronic right shoulder pain - ICD9: 719.41, 338.29, ICD10: M25.511, G89.29 See above, since chronic we can check an xray to ensure no severe arthritis. - XR SHOULDER GENERAL 3V OR MORE AP/TRUE AP/OTHER RIGHT - NAPROXEN 500 MG TABLET 3. Ganglion cyst of foot - ICD9: 727.43, ICD10: M67.479 4. Psoriatic arthritis (HCC) - ICD9: 696.0, ICD10: L40.50 He reports a history of psoriasis today, given his numerous arthralgias it would be beneficial to see rheum and see if he may have a psoriatic arthritis developing. - CONSULT TO RHEUM/IMMUN DISEASE Portions of this note have been entered by ancillary staff. I have reviewed and when necessary edited, so that they are an adequate record of my encounter with this patient Please note that parts of this document were created using voice recognition software and therefore may contain grammatical errors. Patient verbalizes understanding of instructions from today's visit and in agreement with treatment plan. Questions answered. Agrees to call the office if questions, concerns of issues with acute symptoms not improving or if they worsen. See diagnoses and orders for additional plan(s). Allergies and medications were reviewed, list was updated, and refills given if needed. Past medical, surgical, social, and family history reviewed and updated as appropriate. Encouraged proper diet & exercise as well as compliance with taking medications. Age-appropriate health preventative measures were discussed. Return if symptoms worsen or fail to improve, for Keep next scheduled appointment.. Yumi Young APRN-QUOC documented in this encounter [facility] 06-18-2023 Note HNO ID: [id number] Author: Caterina Bryant RT(R) Service: Radiology Author Type: Technologist Type: Progress Notes Filed: 06/18/2023 8:36 AM Note Text: Radiology Service Progress Note PATIENT NAME: Moe Hebert DATE OF SERVICE: June 18, 2023 TIME: 8:28 AM PATIENT IDENTITY VERIFICATION COMPLETED USING TWO (2) IDENTIFIERS: Name and Date of confirmed by patient verbally. FALL SCREENING: Has the patient had 2 falls in the last year or 1 fall with injury or currently using an Ambulatory Assistive Device (Walker, Cane, Wheelchair, Crutches, etc.)? No PATIENT GENDER DATA: Male PATIENT RELEVANT IMPLANT DATA REVIEWED: Not Applicable RADIOLOGY DEPARTMENT: General X-ray: Exam(s) Completed: Spine X-Ray(s): Lumbar AP / LAT / L5-S1 PERIPHERAL IV DATA: Not applicable SIGNED BY: Caterina Bryant, RT(R) June 18, 2023 8:28 AM [facility] 06-18-2023 Note HNO ID: [id number] Author: Yumi Young APRN.CORN SHREDDER Service: ? Author Type: Nurse Practitioner Type: Progress Notes Filed: 06/18/2023 9:28 AM Note Text: SUBJECTIVE Moe Hebert is a 42 year old male here today for a check up on his medical problems. Chief Complaint Patient presents with: Recheck: back pain and now a WC claim HPI Moe Hebert is a 42 year old male established patient of Dr. Tate who presents today for follow up on persistent back pain. He was originally seen 06/08 for this, see HPI from that visit. 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 Treatment has included ice, heat, rest, NSAIDs, muscle relaxers, gentle range of motion and stretching exercises, tylenol and a steroid taper with little to no improvement. He notes at times pain going down the left leg. No significant prior trauma that he is aware of. No numbness, tingling, weakness, saddle paresthesia or bowel/bladder difficulties/leaking/or loss of control. Going slow at work, can do certain things but has a hard time doing all of his job duties. Not sleeping well because of the pain. Soaking in a Hot tub helps a little. Shoulder surgery earlier this year with [facility] with Dr. Omalley. Oxycodone after surgery made him sick. His medications were reviewed today and his list is now up to date. Medications Current Outpatient Medications Medication Sig NAPROXEN ORAL Take 2 tablets by mouth twice daily. cyclobenzaprine (FLEXERIL) 10 mg tablet Take 1 tablet by mouth three times daily as needed for Muscle Spasm. fluticasone (FLONASE) 50 mcg/actuation nasal spray Use 2 Sprays in each nostril once daily. Rinse mouth after use. Olopatadine (PATADAY) 0.2 % drop Use 1 Drop in both eyes twice daily. HYDROcodone-Acetaminophen (NORCO) 7.5-325 mg per tablet Take 1 tablet by mouth every 6 hours as needed for pain for up to 7 days. No current facility-administered medications for this visit. ALLERGIES Allergen Reactions Seasonal Allergies Other: See Comments Nasal congestion, itchy watery eyes ACTIVE PROBLEM LIST Lateral Epicondylitis of Both Elbows - 03/17/2014 Low Back Pain - 03/17/2014 Allergic Rhinitis - 03/17/2014 Hypercholesteremia - 03/17/2014 Elbow Pain, Right - 01/28/2012 Cervicalgia - 08/26/2011 Pain in Joint, Shoulder Region - 08/26/2011 Social History Tobacco Use Smoking status: Never Smokeless tobacco: Never Substance Use Topics Alcohol use: Yes Comment: 1-2 glasses a month usually Drug use: No Review of Systems Respiratory: Negative. Cardiovascular: Negative. Musculoskeletal: Positive for arthralgias, back pain, gait problem and myalgias. Negative for neck pain and neck stiffness. OBJECTIVE BP 110/80 Pulse 90 Wt 136 lb (61.7kg) SpO2 99% Physical Exam Vitals and nursing note reviewed. Constitutional: General: He is awake. He is not in acute distress. Appearance: Normal appearance. He is well-developed and well-groomed. He is not ill-appearing, toxic-appearing or diaphoretic. HENT: Head: Normocephalic. Right Ear: External ear normal. Left Ear: External ear normal. Nose: Nose normal. Eyes: General: Vision grossly intact. Conjunctiva/sclera: Conjunctivae normal. Pupils: Pupils are equal, round, and reactive to light. Neck: Vascular: No JVD. Trachea: Trachea normal. Cardiovascular: Rate and Rhythm: Normal rate and regular rhythm. Pulses: Normal pulses. Heart sounds: Normal heart sounds. No murmur heard. Pulmonary: Effort: Pulmonary effort is normal. No accessory muscle usage, prolonged expiration or respiratory distress. Breath sounds: Normal breath sounds. Musculoskeletal: Cervical back: Normal and neck supple. Thoracic back: Normal. Lumbar back: Tenderness and bony tenderness (paraspinal) present. No swelling, edema, deformity, signs of trauma, lacerations or spasms. Decreased range of motion. No scoliosis. Skin: General: Skin is warm and dry. Capillary Refill: Capillary refill takes less than 2 seconds. Neurological: General: No focal deficit present. Mental Status: He is alert and oriented to person, place, and time. Mental status is at baseline. Cranial Nerves: Cranial nerves 2-12 are intact. Motor: Motor function is intact. Gait: Gait abnormal (due to pain). Psychiatric: Attention and Perception: Attention and perception normal. Mood and Affect: Mood and affect normal. Speech: Speech normal. Behavior: Behavior normal. Behavior is cooperative. Thought Content: Thought content normal. Cognition and Memory: Cognition and memory normal. Judgment: Judgment normal. ASSESSMENT/PLAN: 1. Acute midline low back pain with left-sided sciatica - ICD9: 724.2, 724.3, ICD10: M54.42 (primary diagnosis) Pain is persistent despite conservative measures, we will check an xray but likel (more content not included)... [facility] 06-18-2023 History of Presen t illness Narrative Radiology Service Progress Note PATIENT NAME: Moe Hebert DATE OF SERVICE: June 18, 2023 TIME: 8:28 AM PATIENT IDENTITY VERIFICATION COMPLETED USING TWO (2) IDENTIFIERS: Name and Date of confirmed by patient verbally. FALL SCREENING: Has the patient had 2 falls in the last year or 1 fall with injury or currently using an Ambulatory Assistive Device (Walker, Cane, Wheelchair, Crutches, etc.)? No PATIENT GENDER DATA: Male PATIENT RELEVANT IMPLANT DATA REVIEWED: Not Applicable RADIOLOGY DEPARTMENT: General X-ray: Exam(s) Completed: Spine X-Ray(s): Lumbar AP / LAT / L5-S1 PERIPHERAL IV DATA: Not applicable SIGNED BY: RT Darcy(R) June 18, 2023 8:28 AM documented in this encounter [facility] 06-08-2023 Note HNO ID: [id number] Author: Yumi Young APRN.CORN SHREDDER Service: ? Author Type: Nurse Practitioner Type: Progress Notes Filed: 06/08/2023 10:09 AM Note Text: SUBJECTIVE Moe Hebert is a 42 year old male here today for acute concern. Chief Complaint Patient presents with: Back Pain: lower back started about 1 week ago HPI Moe Hebert is an 42 year old male presents today for back pain. Onset was a week ago but has been seen in the past for chronic low back pain issues. 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 Tried ice and heat, rest, naproxen, and muscle relaxers not helping. Trouble lifting heavy things. If he moves a certain way, will get a sharp pain shooting down the left leg. It is constant, can't sleep. No significant trauma that patient is aware of. Denies numbness, tingling, weakness, saddle paresthesia and bowel or bladder difficulties/leaking/loss of control. His medications were reviewed today and his list is now up to date. Medications Current Outpatient Medications Medication Sig NAPROXEN ORAL Take 2 tablets by mouth twice daily. cyclobenzaprine (FLEXERIL) 10 mg tablet Take 1 tablet by mouth three times daily as needed for Muscle Spasm. fluticasone (FLONASE) 50 mcg/actuation nasal spray Use 2 Sprays in each nostril once daily. Rinse mouth after use. Olopatadine (PATADAY) 0.2 % drop Use 1 Drop in both eyes twice daily. predniSONE (DELTASONE) 10 mg tablet Take 2 tabs po BID for 2 days then 1 tab po BID for 2 days then 1/2 tab po BID for 2 days then 1/2 tab daily for 2 days then stop clotrimazole (ANTIFUNGAL, CLOTRIMAZOLE,) 1 % cream Apply 1 application to affected area twice daily. (Patient not taking: Reported on 12/30/2022) No current facility-administered medications for this visit. ALLERGIES Allergen Reactions Seasonal Allergies Other: See Comments Nasal congestion, itchy watery eyes ACTIVE PROBLEM LIST Lateral Epicondylitis of Both Elbows - 03/17/2014 Low Back Pain - 03/17/2014 Allergic Rhinitis - 03/17/2014 Hypercholesteremia - 03/17/2014 Elbow Pain, Right - 01/28/2012 Cervicalgia - 08/26/2011 Pain in Joint, Shoulder Region - 08/26/2011 Social History Tobacco Use Smoking status: Never Smokeless tobacco: Never Substance Use Topics Alcohol use: Yes Comment: 1-2 glasses a month usually Drug use: No Review of Systems Musculoskeletal: Positive for arthralgias, back pain, gait problem and myalgias. Negative for joint swelling, neck pain and neck stiffness. OBJECTIVE BP 110/66 Pulse 78 Wt 139 lb (63.1kg) SpO2 99% Physical Exam Vitals reviewed. Constitutional: General: He is awake. He is not in acute distress. Appearance: He is well-developed. He is not ill-appearing, toxic-appearing or diaphoretic. HENT: Head: Normocephalic. Cardiovascular: Rate and Rhythm: Normal rate and regular rhythm. Heart sounds: Normal heart sounds. Comments: Intact pulses to bilateral lower extremities. Pulmonary: Effort: Pulmonary effort is normal. No respiratory distress. Breath sounds: Normal breath sounds. Musculoskeletal: Cervical back: Normal, full passive range of motion without pain and normal range of motion. Thoracic back: Tenderness (lower thoracic region paraspinal) present. No swelling, edema, deformity, signs of trauma, lacerations, spasms or bony tenderness. Decreased range of motion. No scoliosis. Lumbar back: Spasms and tenderness (paraspinal) present. No swelling, edema, deformity (No step-off.), signs of trauma, lacerations or bony tenderness. Decreased range of motion. Positive right straight leg raise test and positive left straight leg raise test. No scoliosis. Neurological: Mental Status: He is alert and oriented to person, place, and time. Cranial Nerves: Cranial nerves 2-12 are intact. No cranial nerve deficit. Sensory: No sensory deficit. Motor: Motor function is intact. Comments: No focal deficits. Psychiatric: Behavior: Behavior normal. Behavior is cooperative. Thought Content: Thought content normal. Judgment: Judgment normal. ASSESSMENT/PLAN: 1. Acute midline low back pain with left-sided sciatica - ICD9: 724.2, 724.3, ICD10: M54.42 Suspect muscle strain, if symptoms persist he may need an xray and possible follow up with MRI. Discussed rest, ice/heat, gentle stretches and range of motion. Hold NSAIDs while on steroid taper, can give a dose of Toradol today, discussed may cause some GI upset today with starting steroids so be sure to take steroids with food. Can continue use of tylenol, muscle relaxer as needed. Off of work until Wednesday if improving or can wait until Wednesday if needed. Can also consider PT if continues. - KETOROLAC 60 MG/2 ML INTRAMUSCULAR SOLUTION - PREDNISONE 10 MG TABLET Portions of this note have been entered by ancillary staff. I have reviewed and when necessary edited, so that they are an adequate (more content not included)... [facility] 06-08-2023 History of Presen t illness Narrative SUBJECTIVE Moe Hebert is a 42 year old male here today for acute concern. Chief Complaint Patient presents with: Back Pain: lower back started about 1 week ago HPI Moe Hebert is an 42 year old male presents today for back pain. Onset was a week ago but has been seen in the past for chronic low back pain issues. 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 Tried ice and heat, rest, naproxen, and muscle relaxers not helping. Trouble lifting heavy things. If he moves a certain way, will get a sharp pain shooting down the left leg. It is constant, can't sleep. No significant trauma that patient is aware of. Denies numbness, tingling, weakness, saddle paresthesia and bowel or bladder difficulties/leaking/loss of control. His medications were reviewed today and his list is now up to date. Medications Current Outpatient Medications Medication Sig NAPROXEN ORAL Take 2 tablets by mouth twice daily. cyclobenzaprine (FLEXERIL) 10 mg tablet Take 1 tablet by mouth three times daily as needed for Muscle Spasm. fluticasone (FLONASE) 50 mcg/actuation nasal spray Use 2 Sprays in each nostril once daily. Rinse mouth after use. Olopatadine (PATADAY) 0.2 % drop Use 1 Drop in both eyes twice daily. predniSONE (DELTASONE) 10 mg tablet Take 2 tabs po BID for 2 days then 1 tab po BID for 2 days then 1/2 tab po BID for 2 days then 1/2 tab daily for 2 days then stop clotrimazole (ANTIFUNGAL, CLOTRIMAZOLE,) 1 % cream Apply 1 application to affected area twice daily. (Patient not taking: Reported on 12/30/2022) No current facility-administered medications for this visit. ALLERGIES Allergen Reactions Seasonal Allergies Other: See Comments Nasal congestion, itchy watery eyes ACTIVE PROBLEM LIST Lateral Epicondylitis of Both Elbows - 03/17/2014 Low Back Pain - 03/17/2014 Allergic Rhinitis - 03/17/2014 Hypercholesteremia - 03/17/2014 Elbow Pain, Right - 01/28/2012 Cervicalgia - 08/26/2011 Pain in Joint, Shoulder Region - 08/26/2011 Social History Tobacco Use Smoking status: Never Smokeless tobacco: Never Substance Use Topics Alcohol use: Yes Comment: 1-2 glasses a month usually Drug use: No Review of Systems Musculoskeletal: Positive for arthralgias, back pain, gait problem and myalgias. Negative for joint swelling, neck pain and neck stiffness. OBJECTIVE BP 110/66 Pulse 78 Wt 139 lb (63.1kg) SpO2 99% Physical Exam Vitals reviewed. Constitutional: General: He is awake. He is not in acute distress. Appearance: He is well-developed. He is not ill-appearing, toxic-appearing or diaphoretic. HENT: Head: Normocephalic. Cardiovascular: Rate and Rhythm: Normal rate and regular rhythm. Heart sounds: Normal heart sounds. Comments: Intact pulses to bilateral lower extremities. Pulmonary: Effort: Pulmonary effort is normal. No respiratory distress. Breath sounds: Normal breath sounds. Musculoskeletal: Cervical back: Normal, full passive range of motion without pain and normal range of motion. Thoracic back: Tenderness (lower thoracic region paraspinal) present. No swelling, edema, deformity, signs of trauma, lacerations, spasms or bony tenderness. Decreased range of motion. No scoliosis. Lumbar back: Spasms and tenderness (paraspinal) present. No swelling, edema, deformity (No step-off.), signs of trauma, lacerations or bony tenderness. Decreased range of motion. Positive right straight leg raise test and positive left straight leg raise test. No scoliosis. Neurological: Mental Status: He is alert and oriented to person, place, and time. Cranial Nerves: Cranial nerves 2-12 are intact. No cranial nerve deficit. Sensory: No sensory deficit. Motor: Motor function is intact. Comments: No focal deficits. Psychiatric: Behavior: Behavior normal. Behavior is cooperative. Thought Content: Thought content normal. Judgment: Judgment normal. ASSESSMENT/PLAN: 1. Acute midline low back pain with left-sided sciatica - ICD9: 724.2, 724.3, ICD10: M54.42 Suspect muscle strain, if symptoms persist he may need an xray and possible follow up with MRI. Discussed rest, ice/heat, gentle stretches and range of motion. Hold NSAIDs while on steroid taper, can give a dose of Toradol today, discussed may cause some GI upset today with starting steroids so be sure to take steroids with food. Can continue use of tylenol, muscle relaxer as needed. Off of work until Wednesday if improving or can wait until Wednesday if needed. Can also consider PT if continues. - KETOROLAC 60 MG/2 ML INTRAMUSCULAR SOLUTION - PREDNISONE 10 MG TABLET Portions of this note have been entered by ancillary staff. I have reviewed and when necessary edited, so that they are an adequate record of my encounter with this patient Please note that parts of this document were created using voice recognition software and therefore may contain grammatical errors. Patient verbalizes understanding of instructions from today's visit and in agreement with treatment plan. Questions answered. Agrees to call the office if questions, concerns of issues with acute symptoms not improving or if they worsen. Return if symptoms worsen or fail to improve, for Keep next scheduled appointment.. Yumi Young APRN-QUOC documented in this encounter [facility] 12-30-2022 Note HNO ID: [id number] Author: Amita Hernandez PA-C Service: ? Author Type: Physician Instructor Bridge Type: Progress Notes Filed: 12/30/2022 1:09 PM Note Text: This note was created using [facility]. Subjective Moe Hebert is a 42 year old male. HPI Presents with a lesion on his right thumb over the past month. He had shoulder surgery a few days before he noticed the lesion. States he did pick at it a few weeks ago but has left a little and since then. It is a little painful to touch. No injuries to that hand. 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 Review of Systems Constitutional: Negative. HENT: Negative. Respiratory: Negative. Cardiovascular: Negative. Gastrointestinal: Negative. Skin: Right thumb lesion All other systems reviewed and are negative. PAST MEDICAL HISTORY Diagnosis Date Hyperlipidemia 02/2014 Seasonal allergies Current Outpatient Medications Medication Sig Dispense Refill fluticasone (FLONASE) 50 mcg/actuation nasal spray Use 2 Sprays in each nostril once daily. Rinse mouth after use. 1 Bottle 0 Olopatadine (PATADAY) 0.2 % drop Use 1 Drop in both eyes twice daily. 1 Bottle 0 meloxicam (MOBIC) 15 mg tablet Take 1 tablet by mouth once daily. With food. (Patient not taking: Reported on 12/30/2022) 30 tablet 1 cyclobenzaprine (FLEXERIL) 10 mg tablet Take 1 tablet by mouth three times daily as needed for Muscle Spasm. (Patient not taking: Reported on 12/30/2022) 60 tablet 1 clotrimazole (ANTIFUNGAL, CLOTRIMAZOLE,) 1 % cream Apply 1 application to affected area twice daily. (Patient not taking: Reported on 12/30/2022) 15 g 0 No current facility-administered medications for this visit. PAST SURGICAL HISTORY Procedure Laterality Date EXTRACTION ERUPTED TOOTH wisdom teeth FAMILY HISTORY Problem Relation Age of Onset Breast Cancer Maternal Grandmother Diabetes Unknown NONE Social History Tobacco Use Smoking status: Never Smokeless tobacco: Never Substance Use Topics Alcohol use: Yes Comment: 1-2 glasses a month usually Drug use: No Objective BP 128/84 Pulse 68 Temp 36.1 ?C (97 ?F) (Tympanic) Resp 16 Wt 64.6 kg (142 lb 6.4 oz) SpO2 98% BMI 23.70 kg/m? Physical Exam Vitals reviewed. Constitutional: Appearance: Normal appearance. HENT: Head: Normocephalic and atraumatic. Musculoskeletal: Hands: Comments: Small skin colored lesion over the proximal phalanx of the right thumb. No erythema. Minimally tender to touch. Skin: General: Skin is warm and dry. Neurological: Mental Status: He is alert. Assessment and Plan ASSESSMENT/PLAN: 1. Skin lesion - ICD9: 709.9, ICD10: L98.9 Likely a wart- recommended otc wart remover- if not helping follow up with dermatology. Amita Hernandez PA-C [facility] Diagnosis Arthralgia of right acromioclavicular joint- Primary Pain in joint, shoulder region Chronic right shoulder pain Pain in joint, shoulder region Ganglion cyst of foot Psoriatic arthritis (HCC) [facility] Diagnosis Arthralgia of right acromioclavicular joint- Primary Pain in joint, shoulder region [facility] Diagnosis Arthralgia of right acromioclavicular joint- Primary Pain in joint, shoulder region [facility] Diagnosis Arthralgia of right acromioclavicular joint Pain in joint, shoulder region documented in this encounter [place] note* Diagnosis Acute midline low back pain with left-sided sciatica Radiculopathy of lumbar region Thoracic or lumbosacral neuritis or radiculitis, unspecified [facility] Diagnosis Acute midline low back pain with left-sided sciatica Radiculopathy of lumbar region Thoracic or lumbosacral neuritis or radiculitis, unspecified documented in this encounter [place] note* Diagnosis Arthralgia of right acromioclavicular joint- Primary Pain in joint, shoulder region documented in this encounter [place] note* Diagnosis Arthralgia of right acromioclavicular joint- Primary Pain in joint, shoulder region Arthralgia of right acromioclavicular joint Pain in joint, shoulder region documented in this encounter [place] note* Diagnosis Eczema, unspecified type- Primary Depression screen Screening for depression Chronic right shoulder pain Pain in joint, shoulder region Arthralgia of right acromioclavicular joint Pain in joint, shoulder region documented in this encounter [place] note* Diagnosis Arthralgia of right acromioclavicular joint- Primary Pain in joint, shoulder region Arthralgia of right acromioclavicular joint Pain in joint, shoulder region [facility] Diagnostic Procedure Only (Urgent) - Closed Specialty Diagnoses / Procedures Referred By Contac t Referred To Contact XR IMAGING Diagnoses Acute midline low back pain with left-sided sciatica Radiculopathy of lumbar region Procedures XR LUMBAR GENERAL 3V AP/LAT/L5-S1 RADEX SPINE LUMBOSACRAL 2/3 VIEWS Yumi Young APRN.CNP [address] [place] [address] [place] [address] Referral ID Status Reason Start Date Expiration Date V isits Requested Visits Authorized [id number] Closed Auto-Generate d Referral 06/18/2023 07/17/2024 1 1 [facility]* Diagnostic Procedure Only (Urgent) - Closed Specialty Diagnoses / Procedures Referred By Álvaro t Referred To Contact XR IMAGING Diagnoses Acute midline low back pain with left-sided sciatica Radiculopathy of lumbar region Procedures XR LUMBAR GENERAL 3V AP/LAT/L5-S1 RADEX SPINE LUMBOSACRAL 2/3 VIEWS Yumi Young APRN.CORN SHREDDER [address] [place] [address] [place] [address] Referral ID Status Reason Start Date Expiration Date V isits Requested Visits Authorized [id number] Closed Auto-Generate d Referral 06/18/2023 07/17/2024 1 1 [facility] Medications Administered Section Inactive Administered Medications - up to 3 most recent administrations Medication Order MAR Action Action Date Dose Rate Site keTORolac 60 mg injection (Toradol) 60 mg, INTRAMUSCULAR, ONCE, 1 dose, On Wed06/08/23 at 0900, Ketorolac (Toradol) is indicated for the short-term (up to 5 days) management of moderately severe acute pain. Continuation of ketorolac (Toradol) beyond 5 days increases the risk of developing serious adverse events. Please verify the duration of therapy for ketorolac (Toradol)., If ordered PRN for pain, patient/guardian may elect to receive this medication for higher pain levels INSTEAD of the opioid, if preferred: Yes Given 06/08/2023 8:57 AM EDT 60 mg Buttocks, Left Inactive Administered Medications - up to 3 most recent administrations Medication Order MAR Action Action Date Dose Rate Site betamethasone acetate-betamethasone sodium phosphate 6 mg injection (CELESTONE) 6 mg, Injection - FOR ORTHO USE ONLY, ONCE, 1 dose, Starting on Wed10/11/23 at 1607, Until Wed10/11/23 at 1607 Given 10/11/2023 4:07 PM EST 6 mg Shoulder, Right lidocaine (PF) 10 mg/mL (1 %) 1 mL injection (XYLOCAINE) 1 mL, Injection - FOR ORTHO USE ONLY, ONCE, 1 dose, Starting on Wed10/11/23 at 1607, Until Wed10/11/23 at 1607 Given 10/11/2023 4:07 PM EST 1 mL Shoulder, Right Reason for Referral Specialty Diagnoses / Procedures Referred By Contac t Referred To Contact Rheumatology Diagnoses Psoriatic arthritis (HCC) Procedures CONSULT TO RHEUM/IMMUN DISEASE OFFICE/OUTPATIENT [facility] 60-74 MINUTES Yumi Young APRN.CORN SHREDDER [address] [place] [address] Referral ID Status Reason Start Date Expiration Date Visits Requested Visits Authorized [id number] Authorized PCP Requested Referral 07/20/2023 07/19/2024 1 1 Specialty Diagnoses / Procedures Referred By Contac t Referred To Contact XR IMAGING Diagnoses Chronic right shoulder pain Procedures XR SHOULDER GENERAL 3V OR MORE AP/TRUE AP/OTHER RIGHT RADEX SHOULDER COMPLETE MINIMUM 2 VIEWS Yumi Young APRN.CORN SHREDDER [address] [place] [address] [place] [address] Referral ID Status Reason Start Date Expiration Date V isits Requested Visits Authorized [id number] Closed Auto-Generate d Referral 07/20/2023 08/18/2024 1 1 Specialty Diagnoses / Procedures Referred By Contac t Referred To Contact Orthopedics Diagnoses Arthralgia of right acromioclavicular joint Procedures CONSULT TO ORTHOPAEDICS OFFICE/OUTPATIENT [facility] 60-74 MINUTES Yumi Young APRN.CORN SHREDDER [address] [place] [address] Referral ID Status Reason Start Date Expiration Date Visits Requested Visits Authorized [id number] Authorized PCP Requested Referral 07/26/2023 07/25/2024 1 1 Specialty Diagnoses / Procedures Referred By Contac t Referred To Contact MR IMAGING Diagnoses Arthralgia of right acromioclavicular joint Procedures MRI SHOULDER WO IVCON RIGHT MRI ANY JT UPPER EXTREMITY W/O CONTRAST Adry Salgado MD [address] [place] [id number] [place] [address] Referral ID Status Reason Start Date Expiration Date Visits Requested Visits Authorized [id number] Authorized Auto-Generat ed Referral 08/23/2023 09/21/2024 1 1 Referral ID Status Reason Start Date Expiration Date V isits Requested Visits Authorized [id number] Closed Auto-Generate d Referral 08/23/2023 09/21/2024 1 1 Specialty Diagnoses / Procedures Referred By Contac t Referred To Contact MR IMAGING Diagnoses Acute midline low back pain with left-sided sciatica Radiculopathy of lumbar region Procedures MRI LUMBAR SPINE WO IVCON MRI SPINAL CANAL LUMBAR W/O CONTRAST MATERIAL Yumi Young APRN.CORN SHREDDER [address] [place] [address] [place] [address] Referral ID Status Reason Start Date Expiration Date V isits Requested Visits Authorized [id number] Closed Auto-Generate d Referral 06/18/2023 07/17/2024 1 1 Summary Purpose Family History No Family History Records FoundNo Family History Records Found Advance Directives No Advanced Directives Records FoundNo Advanced Directives Records Found Additional Source Comments Source Comments (unrecognize d section and content) In the event this informatio n is protected by the Federal Confidentiality of Alcohol and Drug Abuse Patient Records regulations: The Federal rules restrict any use of the information to criminally investigate or prosecute any alcohol or drug abuse patient.[facility] event this information is protected by the Federal Confidentiality of Alcohol and Drug Abuse Patient Records regulations: The Federal rules restrict any use of the information to criminally investigate or prosecute any alcohol or drug abuse patient.[facility] the event this information is protected by the Federal Confidentiality of Alcohol and Drug Abuse Patient Records regulations: The Federal rules restrict any use of the information to criminally investigate or prosecute any alcohol or drug abuse patient.[facility] the event this information is protected by the Federal Confidentiality of Alcohol and Drug Abuse Patient Records regulations: The Federal rules restrict any use of the information to criminally investigate or prosecute any alcohol or drug abuse patient.[facility] the event this information is protected by the Federal Confidentiality of Alcohol and Drug Abuse Patient Records regulations: The Federal rules restrict any use of the information to criminally investigate or prosecute any alcohol or drug abuse patient.[facility] the event this information is protected by the Federal Confidentiality of Alcohol and Drug Abuse Patient Records regulations: The Federal rules restrict any use of the information to criminally investigate or prosecute any alcohol or drug abuse patient.[facility] the event this information is protected by the Federal Confidentiality of Alcohol and Drug Abuse Patient Records regulations: The Federal rules restrict any use of the information to criminally investigate or prosecute any alcohol or drug abuse patient.[facility] the event this information is protected by the Federal Confidentiality of Alcohol and Drug Abuse Patient Records regulations: The Federal rules restrict any use of the information to criminally investigate or prosecute any alcohol or drug abuse patient.[facility] the event this information is protected by the Federal Confidentiality of Alcohol and Drug Abuse Patient Records regulations: The Federal rules restrict any use of the information to criminally investigate or prosecute any alcohol or drug abuse patient.[facility] the event this information is protected by the Federal Confidentiality of Alcohol and Drug Abuse Patient Records regulations: The Federal rules restrict any use of the information to criminally investigate or prosecute any alcohol or drug abuse patient.[facility] the event this information is protected by the Federal Confidentiality of Alcohol and Drug Abuse Patient Records regulations: The Federal rules restrict any use of the information to criminally investigate or prosecute any alcohol or drug abuse patient.[facility] the event this information is protected by the Federal Confidentiality of Alcohol and Drug Abuse Patient Records regulations: The Federal rules restrict any use of the information to criminally investigate or prosecute any alcohol or drug abuse patient.[facility] the event this information is protected by the Federal Confidentiality of Alcohol and Drug Abuse Patient Records regulations: The Federal rules restrict any use of the information to criminally investigate or prosecute any alcohol or drug abuse patient.[facility] Reason for Visit (unrecogniz ed section and content) Reason Comments Pain (Shoulder Pain) right shoulder no i njury Reason Comments Results Reason Comments New Rt shoulder pain Specialty Diagnoses / Procedures Referred By Álvaro colvin Referred To Contact Orthopedics / ORTHOPAEDIC SURGERY Diagnoses Acute midline low back pain with left-sided sciatica Procedures CONSULT TO ORTHOPAEDICS OFFICE/OUTPATIENT NEW HIGH MDM 60-74 MINUTES Yumi Young APRN.CORN SHREDDER [address] [place] [address] [facility] [address] [place] [address] Referral ID Status Reason Start Date Expiration Date V isits Requested Visits Authorized [id number] Closed PCP Requested Referral 06/18/2023 06/17/2024 1 1 Reason Comments Results Specialty Diagnoses / Procedures Referred By Contac t Referred To Contact MR IMAGING Diagnoses Arthralgia of right acromioclavicular joint Procedures MRI SHOULDER WO IVCON RIGHT MRI ANY JT UPPER EXTREMITY W/O CONTRAST KENDALLL Adry Ruggiero MD [address] [place] [address] [place] [address] Referral ID Status Reason Start Date Expiration Date V isits Requested Visits Authorized [id number] Closed Auto-Generate d Referral 08/23/2023 09/21/2024 1 1 Specialty Diagnoses / Procedures Referred By Contac t Referred To Contact MR IMAGING Diagnoses Acute midline low back pain with left-sided sciatica Radiculopathy of lumbar region Procedures MRI LUMBAR SPINE WO IVCON MRI SPINAL CANAL LUMBAR W/O CONTRAST MATERIAL Yumi Young APRN.CORN SHREDDER [address] [place] [address] [place] [address] Referral ID Status Reason Start Date Expiration Date V isits Requested Visits Authorized [id number] Closed Auto-Generate d Referral 06/18/2023 07/17/2024 1 1 Reason Comments Follow Up Results - Mri Reason Comments Schedule Surgery Reason Comments Rash Reason Comments Established Patient US guided injection right shoulder Care Teams (unrecognized sec tion and content) [employer] Relationship Specialty Start Date End Date Amanuel Tate DO [address] [place] [address] PCP - General Family Medicine 03/17/14 [employer] Relationship Specialty Start Date End Date Amanuel Tate DO [address] [place], [place] [id number] PCP - General Family Medicine 03/17/14 [employer] Relationship Specialty Start Date End Date Amanuel Tate, [address] [place] [address] PCP - General Family Medicine 03/17/14 [employer] Relationship Specialty Start Date End Date Amanuel Tate, [address] [place] [address] PCP - General Family Medicine 03/17/14 [employer] Relationship Specialty Start Date End Date Amanuel Tate, [address] [place] [address] PCP - General Family Medicine 03/17/14 [employer] Relationship Specialty Start Date End Date Amanuel Tate, [address] [place] [address] PCP - General Family Medicine 03/17/14 [employer] Relationship Specialty Start Date End Date Amanuel Tate DO [address] [place] [address] PCP - General Family Medicine 03/17/14 [employer] Relationship Specialty Start Date End Date Amanuel Tate, [address] [place] [address] PCP - General Family Medicine 03/17/14 [employer] Relationship Specialty Start Date End Date Amanuel Tate DO [address] [place] [address] PCP - General Family Medicine 03/17/14 [employer] Relationship Specialty Start Date End Date Amanuel Tate, [address] [place] [address] PCP - General Family Medicine 03/17/14 [employer] Relationship Specialty Start Date End Date Amanuel Tate [address] [place] [address] PCP - General Family Medicine 03/17/14 (unrecognized sect ion and content) No Status Records FoundNo Status Records Found INFORMATION SOURCE (unrecogn ized section and content) DATE CREATED AUTHOR AUTHOR'S ORGANIZ ATION 12/21/2023 [facility] FOR RECORDS PERTAINING TO PATIENTS WHO ARE OR HAVE BEEN ENROLLED IN A CHEMICAL DEPENDENCY/SUBSTANCEABUSE PROGRAM, SOME INFORMATION MAY BE OMITTED. This clinical summary was aggregated from multiple sources. Caution should be exercised in using it in the provision of clinical care. This summary normalizes information from multiple sources, and as a consequence, information in this document may materially change the coding, format and clinical context of patient data. In addition, data may be omitted in some cases. CLINICAL DECISIONS SHOULD BE BASED ON THE PRIMARY CLINICAL RECORDS. [employer] provides no warranty or guarantee of the accuracy or completeness of information in this document.
[2023-12-25 21:07] LABS: QNTFERON TB Mitogen Value > 10.00 IU/mL (.); QNTFERON TB Nil Value 0.02 IU/mL (.); QNTFERON TB1+ Ag Value 0.15 IU/mL (.); QNTFERON TB2+ Ag Value 0.09 IU/mL (.); QNTIFERON TB Positive Criteria Negative (Negative)
== END | disposition home or self-care (01) ==
LOC: MTLAB 08:29
PROVIDERS: PCP Internal Medicine; Referring Provider Internal Medicine Rheumatology; Visit Provider Internal Medicine Rheumatology
DX: M46.90 Unspecified inflammatory spondylopathy, site unspecified (principal); L30.9 Dermatitis, unspecified
CPT/HCPCS: 36415; 86480

== ENCOUNTER 2023-12-31 14:27 | Emergency (ER) | payer BC, SELFPAY ==
[2023-12-31 14:29] VITALS: BP 102/78; PULSE 90; RESP 20; TEMP 36.6; O2SAT 99; BMI 24.3
[2023-12-31] MEDS: Morphine 4 MG/ML Syringe IM (15:08)
[2023-12-31] MEDS: Ketorolac 15 MG/ML Vial IM (15:09)
[2023-12-31] MEDS: Ondansetron ODT 4 MG Tablet PO (15:10)
--- NOTE | 2023-12-31 15:12 | EX.ED.DYSGE1 ---
HPI <LATHA Matias - Last Filed: 12/31/23 16:16> History of Present Illness Chief Complaint: Back Narrative Narrative: Patient a 43-year-old male with history of chronic back pain, presents to the emergency department with complaints of worsening pain to his lower back is rating down both legs. Patient denies any injury. Patient states he has had sciatica in the past. Recently had a shoulder surgery in October. Patient states over the last 4 days, has been having difficulty ambulating, sleeping. Patient did drive himself to the emergency department. Denies any bowel or bladder cons, [place] any history of IV drug abuse. No fever or chills. Denies any saddle paresthesia. PFSH <LATHA Matias - Last Filed: 12/31/23 16:16> PFSH Home Medications epinephrine 0.3 mg/0.3 mL injection, auto-injector 0.3 mg (0.3 mL) IM .once PRN anaphylaxis #2 ea 07/13/21 [Rx Last Taken Unknown] clobetasol 0.05 % topical ointment 1 applic topical BID 12/31/23 [History Last Taken Unknown] oxycodone-acetaminophen 5 mg-325 mg tablet (Percocet) 1 tab PO Q8H PRN pain 3 days #10 tabs 12/31/23 [Rx Last Taken Unknown] prednisone 50 mg tablet 50 mg PO DAILY #6 tabs 12/31/23 [Rx Last Taken Unknown] Allergy/AdvReac Type Severity Reaction Status Date / Time bee venom protein (honey bee) Allergy Anaphylaxis Verified 12/31/23 14:31 Social History Smoking Status: Never smoker ROS <LATHA Matias - Last Filed: 12/31/23 16:16> ROS ED ROS Narrative Constitutional: Negative for fever, chills, weight loss, weakness Eyes: Negative for vision loss, vision change, double vision ENT: Negative for any sore throat, ear pain, congestion Cardiovascular: Negative for any chest pain, tightness, palpitations Respiratory: Negative for any cough, sputum production, hemoptysis, dyspnea, dyspnea on exertion, orthopnea Gastrointestinal: Negative for any abdominal pain, nausea, vomiting, diarrhea, constipation, blood in stool, blood in vomit : Negative for any urinary frequency, dysuria, retention, blood in urine Muscle skeletal: Negative for any myalgias, arthralgias, neck pain. Positive for lower back pain that radiates down both legs Neurological: Negative for any headache, syncope, paresthesias, dizziness Skin: Negative for any rashes, lumps, itching, abrasions, lacerations Psychiatric: Negative for any depression, anxiety, stress, suicidal ideation, homicidal ideation Hematologic: Negative for any easy bruising, excessive bruising, easy bleeding Allergies: Negative for any eczema, hives, rash EXAM <LATHA Matias - Last Filed: 12/31/23 16:16> Physical Exam Narrative Exam Narrative: Vital signs reviewed. HEET: Head normocephalic atraumatic, TMs clear bilaterally. Posterior pharynx is clear, moist mucous membranes. Nares clear bilaterally. Neck: Supple with no lymphadenopathy or tenderness. No signs of meningismus. Cardiac: Regular rate and rhythm no murmurs gallops or rubs, equal peripheral pulses bilaterally. Respiratory: Lungs clear to auscultation bilaterally. No chest tenderness. Abdomen: Soft, nontender, nondistended. No abdominal bruit or pulsatile masses. No hepatosplenomegaly Extremities: No peripheral edema, no signs of gross trauma or deformity. Active full range of motion of all extremities. Neuro: Cranial nerves II through XII intact, no focal neurological deficits. Negative for any saddle paresthesias. Skin: Clean dry and intact with no rash, purpura, petechiae, vesicles or pustules. Backs/flank: No CVA tenderness, no midline spinal tenderness, no deformity. Patient has pain just above the buttocks bilaterally. +2 pedal pulse. Patient is ambulatory. Able to heel, toe ambulating. Psych: Normal mood and affect. No SI, HI or acute psychosis. Const Vital Signs: 12/31/23 14:29 12/31/23 16:22 Temperature 97.9 F Temperature Source Temporal Pulse Rate 90 71 Respiratory Rate 20 H 16 Blood Pressure 102/78 111/72 Blood Pressure Mean 86 85 Pulse Ox 99 Positive well nourished and well developed General Appearance ED: well developed <Dr. Aris Whitley MD - Last Filed: 12/31/23 17:29> Physical Exam Const Vital Signs: 12/31/23 14:29 12/31/23 16:22 Temperature 97.9 F Temperature Source Temporal Pulse Rate 90 71 Respiratory Rate 20 H 16 Blood Pressure 102/78 111/72 Blood Pressure Mean 86 85 Pulse Ox [address] [facility] <LATHA Matias - Last Filed: 12/31/23 16:16> [facility] Lab Data Labs: Laboratory Results - last 24 hr 12/31/23 15:28 Urine Color Yellow Urine Clarity Sl. Cloudy Urine pH 5.0 Ur Specific [place] 1.025 Urine Protein 30 H Urine Glucose (UA) Normal Urine Ketones Negative Urine Occult Blood Negative Urine Nitrite Negative Urine Bilirubin Negative Urine Urobilinogen Normal Ur Leukocyte Esterase 25 H Urine RBC 0 SEEN Urine WBC 0-5 SEEN Ur Squamous Epith Cells 0-5 SEEN Urine Bacteria RARE Urine Mucus 0 SEEN Treatment and Re-Evaluation :: Patient appears to be in mild distress. Vital signs are stable. Presenting to the emergency department with complaints of bilateral lower back pain. Differential diagnosis includes cauda equina, spinal abscess, muscle skeletal pain, acute on chronic lumbar strain, sciatica. At this time, secondary to there being no injury, I do not believe that a CT scan or x-ray will be helpful. Patient will receive IM dose of morphine, Toradol, as well as oral Zofran. Patient be reevaluated. On reevaluation, the patient was feeling some relief after the IM medications. At this time, patient diagnosed with sciatica. There is no evidence of deep tissue infection, cauda equina, spinal abscess. Patient be diagnosed with lumbar strain as well as sciatica. I will have him follow-up with orthospine. Patient be given a prescription for 5 days of prednisone as well as a short course of Percocet. He is instructed to return for any worsening symptoms, all questions were answered, patient stable for discharge. <Dr. Aris Whitley MD - Last Filed: 12/31/23 17:29> [facility] Narrative Medical decision making narrative: I have personally performed a face to face assessment of the patient and have reviewed the NELLIE Note. I performed a substantive portion of the visit including all aspects of the following. My giron findings include: History: Patient presents with exacerbation of back pain. He states he has back pain every day of his life and has for a long time. But he just manages it with [id number] meds. He is never really seen a specialist or had MRIs before. He has no fevers chills. No IV drug use. No recent infections or skin infections or antibiotics use. He has been off work for the last 2 or so months because of shoulder surgery. 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 He is not allowed to lift heavy items yet though. No specific injury. He states he has pain in his back and it actually radiates down both legs. He has had it down his left leg before. He states it is mostly on the left but there is some radiation down the right and it goes to the top of the calf on both sides. It is intermittent.. It is not showing any weakness. He has normal bowel and bladder function. He did talk to a phone nurse who said he might have a UTI. This is because when he sits down it hurts in his back a lot when he urinates. But he states that is really the sitting position. He states when he stands he urinates and empties just fine. He starts and stops his stream with no dribbling. Moves his bowels normally. No sensory changes. Exam: Patient awake alert. Does look a little uncomfortable. He is stiff with motion. But he is able to sit up stand on heels and toes. He can do some squats but it is sore to do so. He has lower lumbar pain and he has sciatic notch tenderness mostly on his left more than the right. No skin changes. Perianal and inguinal and testicular region sensation is normal. Reflexes are normal. Strength sensation is normal. There is no clinical indication of any neurologic deficit. Medical Decision Making: Although pain radiating down both legs is certainly a concerning story, there is no indication of cauda equina. He has no neurologic deficit or finding. I do not think he needs an acute MRI although that may occur in his future. I think we can treat him with steroids which she has never been on. We will see if we can get him a bit better. Because he is concerned now about a UTI we will check the urine but I am doubtful that this occurring. But we will certainly make sure. He will be medicated here. Lab Data Labs: Laboratory Results - last 24 hr 12/31/23 15:28 Urine Color Yellow Urine Clarity Sl. Cloudy Urine pH 5.0 Ur Specific [place] 1.025 Urine Protein 30 H Urine Glucose (UA) Normal Urine Ketones Negative Urine Occult Blood Negative Urine Nitrite Negative Urine Bilirubin Negative Urine Urobilinogen Normal Ur Leukocyte Esterase 25 H Urine RBC 0 SEEN Urine WBC 0-5 SEEN Ur Squamous Epith Cells 0-5 SEEN Urine Bacteria RARE Urine Mucus 0 SEEN Discharge Plan Triage Chief Complaint: Back ED Midlevel Provider: Wilmer Chairez ED Provider: Aris Whitley Dx/Rx/DC Orders Clinical Impression: Sciatic leg pain, Lumbar back pain Instructions: ED Back Pain (Acute or Chronic), ED Sciatica Prescriptions: New oxycodone-acetaminophen [Percocet] 5-325 mg tablet 1 tab PO Q8H PRN (Reason: pain) 3 Days Qty: 10 0RF prednisone 50 mg tablet 50 mg PO DAILY Qty: 6 0RF No Action epinephrine 0.3 mg/0.3 mL auto-injector 0.3 mg IM .once PRN (Reason: anaphylaxis) Qty: 2 0RF clobetasol 0.05 % ointment 1 applic TOPICAL BID Patient Comments: Apply to affected area two times a day. Primary Care Provider: Emma Young NP Referrals: Tanner Herbert DO [Med Staff - Active Staff] - Emma Young NP, [facility] [Primary Care Provider] - Disposition Disposition: Home, Self Care Discharge Date/Time: 12/31/23 16:34
[2023-12-31 15:39] LABS: Mucous, Urine 0 SEEN /hpf (<or=2+)
[2023-12-31 15:46] LABS: Color, Urine Yellow (Yellow); Glucose, Dipstick Normal (Normal); Ketone-Dipstick Negative (Negative); Leukocyte Esterase-Dipstick 25 /ul (Negative); Nitrite-Dipstick Negative (Negative); Occult Blood-Urine Negative /ul (Negative); Protein-Dipstick 30 mg/dl (Negative); Specific Gravity, Urine 1.025 (1.002-1.030); Urine Bilirubin Dipstick Negative (Negative); Urine Clarity Sl. Cloudy (Clear); Urine Urobilinogen Normal (Normal)
[2023-12-31 16:02] LABS: Bacteria RARE /hpf (None Seen); Red Blood Cells-Urine 0 SEEN /hpf (0-5); Squamous Epithelial Cells - UA 0-5 SEEN /hpf (0-5); White Blood Cells 0-5 SEEN /hpf (0-5)
[2023-12-31 16:22] VITALS: BP 111/72; PULSE 71; RESP 16
== END 2023-12-31 16:34 | disposition home or self-care (01) ==
PROVIDERS: Nurse Practitioner; Emergency Provider Emergency Medicine; PCP Internal Medicine; Visit Provider Emergency Medicine
DX: M79.604 Pain in right leg (principal); M79.605 Pain in left leg; M54.50 Low back pain, unspecified; G89.29 Other chronic pain
CPT/HCPCS: 81001; 96372; 99282

== ENCOUNTER → 2024-01-17 | Outpatient (CLI) | payer BC, SELFPAY ==
--- NOTE | 2024-01-17 08:45 | MRI_ITS ---
ACR Level 3 findings have been noted. An addendum which confirms receipt of the report will follow. HISTORY: Stenosis, walks with limp, legs numb. TECHNIQUE: Multiplanar and multisequence MR images of the lumbar spine were obtained without intravenous contrast. 192 images. COMPARISON: XR 12/21/2023. FINDINGS: VERTEBRAE: Vertebral body heights maintained. Mild degenerative bone marrow endplate changes of L1-2, L4-5, and L5-S1. ALIGNMENT: No anterior or posterior subluxation. CONUS: Normal morphology and position of the conus medullaris at T12-L1. INTERVERTEBRAL DISCS: T12-L1: No significant disc signal abnormality, posterior disc protrusion, central canal stenosis, or foraminal narrowing based on the sagittal images. L1-2: Minimal disc bulge without central canal stenosis or foraminal narrowing. L2-3, L3-4: No significant disc signal abnormality, posterior disc protrusion, central canal stenosis, or foraminal narrowing. L4-5: Mild central disc protrusion with mild facet arthropathy resulting in minimal narrowing of the thecal sac and mild bilateral foraminal narrowing. L5-S1: 7 mm x 1.3 cm x 2.2 cm large left paracentral disc extrusion with superior and inferior migration of the sequestered component resulting in markedly severe central canal stenosis with compression of the thecal sac, left S1 and S2 nerve root impingement, right S2 nerve root abutment, and mild-moderate bilateral foraminal narrowing. SOFT TISSUES: No paraspinal fluid collection. Small left renal cyst. 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 Electronically Signed: Simin Fregoso MD at 14:30 EST ,
--- OUTSIDE RECORDS SUMMARY | 2024-01-17 09:00 | XMS RPT_ITS | CCD ---
Author Name Unknown Address [address] [place] [address] Organization [facility] Care Team Providers Care Seaman Officer Name Role Phone Amanuel Tate DO Primary Care Provider [phone] ADRY RUGGIERO Attending Unavailable ADRY RUGGIERO Admitting Unavailable TATE, AMANUEL L Primary Care Unavailable HANNAH, YUMI Attending Unavailable TATE, AMANUEL L Primary Care Unavailable ADRY RUGGIERO Attending Unavailable TATE, AMANUEL L Primary Care Unavailable HANNAH, YUMI Attending Unavailable TATE, AMANUEL L Primary Care Unavailable ADRY RUGGIERO Referring Unavailable TATE, AMANUEL L Primary Care Unavailable TEDDY BEAR Referring Unavailable TATE, AMANUEL L Primary Care Unavailable LAINE EMERY Attending Unavailable TATE, AMANUEL L Primary Care Unavailable HANNAH, YUMI Attending Unavailable TATE, AMANUEL L Primary Care Unavailable HANNAH, YUMI Attending Unavailable TATE, AMANUEL L Primary Care Unavailable ADRY RUGGIERO Referring Unavailable ADRY RUGGIERO Attending Unavailable TATE, AMANUEL L Primary Care Unavailable TATE, AMANUEL L Primary Care Unavailable HANNAH, YUMI Referring Unavailable ADRY RUGGIERO Attending Unavailable HANNAH, YUMI Referring Unavailable TATE, AMANUEL [...] Unavailable TATE, AMANUEL L Primary Care Unavailable HANNHA, YUMI Attending Unavailable Allergies Allergy Classification Reported Allergen(s) Allergy Type Date of Onset Reaction(s) Facility (17 sources) Seasonal allergy; Translations: [SEASONAL ALLERGIES] Allergy to substance 05-22-201 3 Other: See Comments [facility] Medications Completed/Discontinued Medications Medication Drug Class(es) Dates Sig (Normalized) Sig (Original) acetaminophen 500 mg oral tablet (7 sources) take 1 tablet by mouth every eight hours as needed acetaminophen (TYLENOL EXTRA STRENGTH) 500 mg tablet Take 500 mg by mouth every 8 hours as needed. 0 Active Problems Active Problems Problem Classification Problem Date Documented Date Episodic/Chronic Allergic reactions (4 sources) Eczema; Translations: [Dermatitis, unspecified] Onset: 11-08-2023 10-29-2023 Episodic Disorders of lipid metabolism (16 sources) Hypercholesterolemia; Translations: [Pure hypercholesterolemia, unspecified] Onset: [...] Onset: 07-20-2023 Chronic Other non-traumatic joint disorders (8 sources) Pain of right acromioclavicular joint; Translations: [Pain in right shoulder] 07-20-2023 Episodic Other non-traumatic joint disorders (2 sources) Chronic pain of right upper limb; Translations: [Pain in right shoulder] 07-20-2023 Episodic Other upper respiratory disease (15 sources) Allergic rhinitis; Translations: [Allergic rhinitis, unspecified] Onset: 03-17-2014 03-17-2014 Chronic Screening and history of mental health and substance abuse codes (1 source) Patient encounter status; Translations: [Encounter for screening for depression] 10-29-2023 Episodic Past or Other Problems Problem Classification Problem Date Documented Date Episodic/Chronic Other connective tissue disease (15 sources) Lateral epicondylitis of bilateral humerus; Translations: [Lateral epicondylitis, right elbow] Onset: 03-17-2014 03-17-2014 Episodic Other connective tissue disease (1 source) Ganglion, unspecified ankle and foot; Translations: [Ganglion cyst of foot] Onset: 07-20-2023 Episodic Other connective tissue disease (1 source) Other muscle spasm; Translations: [Muscle spasms of neck] Onset: 07-20-2023 Episodic Other non-traumatic joint disorders (15 sources) Shoulder joint pain; Translations: [Pain in unspecified shoulder] Onset: 08-26-2011 08-26-2011 Episodic Other non-traumatic joint disorders (15 sources) Pain in elbow; Translations: [Pain in [...] Date Time Vital Sign Value Performing Clinician Faci lity 10-29-2023 07:34-0500 Body weight 64.41 kg Yumi Young APRN.CN P Work Phone: [facility] 10-29-2023 07:34-0500 Diastolic blood pressure 72 mm[Hg] Yumi Young APRN.IRON WORKER APPRENTICE Work Phone: [facility] 10-29-2023 07:34-0500 Heart rate 72 /min Yumi Young APRN.CN P Work Phone: [facility] 10-29-2023 07:34-0500 SaO2% (BldA) [Mass fraction] 99 % Yumi Young APRN.IRON WORKER APPRENTICE Work Phone: [facility] 10-29-2023 07:34-0500 Systolic blood pressure 100 mm[Hg] Yumi Jordanr BARRETT.IRON WORKER APPRENTICE Work Phone: [facility] 07-20-2023 07:36-0400 Body weight 62.6 kg Yumi Young APRN.CN P Work Phone: [facility] 07-20-2023 07:36-0400 Diastolic blood pressure 78 mm[Hg] Yumi Hannah YARD LOADER OPERATOR.IRON WORKER APPRENTICE Work Phone: [facility] 07-20-2023 07:36-0400 Heart rate 75 /min Yumi Hannah YARD LOADER OPERATOR.CN P Work Phone: [facility] 07-20-2023 07:36-0400 SaO2% (BldA) [Mass fraction] 99 % Yumi Hannah YARD LOADER OPERATOR.IRON WORKER APPRENTICE Work Phone: [facility] 07-20-2023 07:36-0400 Systolic blood pressure 99 mm[Hg] Yumi Hannah YARD LOADER OPERATOR.IRON WORKER APPRENTICE Work Phone: [facility] 06-08-2023 08:30-0400 Body weight 63.05 kg Yumi Hannah YARD LOADER OPERATOR.CN P Work Phone: [facility] 06-08-2023 08:30-0400 Diastolic blood pressure 66 mm[Hg] Yumi Hannah YARD LOADER OPERATOR.IRON WORKER APPRENTICE Work Phone: [facility] 06-08-2023 08:30-0400 Heart rate 78 /min Yumi Hannah YARD LOADER OPERATOR.CN P Work Phone: [facility] 06-08-2023 08:30-0400 SaO2% (BldA) [Mass fraction] 99 % Yumi Hannah YARD LOADER OPERATOR.IRON WORKER APPRENTICE Work Phone: [facility] 06-08-2023 08:30-0400 Systolic blood pressure 110 mm[Hg] Yumi Hannah YARD LOADER OPERATOR.IRON WORKER APPRENTICE Work Phone: [facility] Encounters Encounter Date Encounter Type Care Provider Facility Start: 12-31-2023 ambulatory Amanuel Ceballos son DO Work Phone: [facility] Procedures Date Procedure Procedure Detail [...] lum bar w/o contrast material Yumi Young APRN.IRON WORKER APPRENTICE Work Phone: Start: 06-18-2023 Radex spine lumbosac ral 2/3 views Yumi Young APRN.IRON WORKER APPRENTICE Work Phone: Start: 07-25-2019 Lipid 1996 panel - S luke or Plasma Adry Ruggiero MD Work Phone: Plan of Treatment Date Care Activity Detail Author Start: 10-29-2024 Covid-19 Vaccine (#1) Covid-19 Vacci ne (#1) [facility] Immunizations Immunization Date Immunization Notes Care Provider Nicole reyes 05-29-2004 tetanus and diphther ia toxoids, adsorbed, preservative free, for adult use (2 Lf of tetanus toxoid and 2 Lf of diphtheria toxoid) Yumi Young APRN.IRON WORKER APPRENTICE Work Phone: [facility] Work Phone: Payers Date Payer Category Payer Unknown MARK FAJARDO PPO [id number] 2022-Present [phone] [address] [place] [address] PPO [id number] 2022 Unknown [id number] 2010 Unknown [id number] Social History Date Type Detail Facility Start: 12-04-[facility] Start: 12-04-2011 Tobacco use and exposure Smokeless tobacco non-user [facility] Start: 06-08-2023 End: 01-10-2024 Alcohol intake Current drinker of alcohol (finding) [facility] Start: 06-08-2023 End: 10-29-2023 History of Social function [facility] Work Phone: Start: 06-08-2023 End: 10-29-2023 Tobacco use panel [facility] Work Phone: National Score (1-100), lower number is lower risk 90 [facility] Work Phone: Start: 1980 Sex Assigned At Not on file [facility] Clinical Notes 06-08-2023 to 12-31-2023 Telephone Encounter - Heather Pulido RN - 12/31/2023 1:49 PM Adry Dodd MD - 12/20/2023 2:23 PM Yumi Beckwith APRN.IRON WORKER APPRENTICE - 10/29/2023 7:37 AM Sandy Heath RT(R) - 09/06/2023 8:40 AM EDT Note Date & Type Note Facility 12-31-2023 Miscellaneous Notes Pt reports for last 4 days having severe pain in lower back at waistline that radiates down buttocks to calves bilaterally. Difficult to walk- legs anne, feel weak and cold, unable to bend at waist. Extreme pain when puts weight on anne legs. Having numbness from buttocks to calves bilateral. Having frequency with urination, only urinating small amounts, burning with urination, dark urine. Protocol recommends ER now. Pt agreeable. States he has someone to drive him. Reason for Disposition Weakness of a leg or foot (e.g., unable to bear weight, dragging foot) Answer Assessment - Initial Assessment Questions 1. ONSET: Has had this lower back pain since June, but worse in last 4 day, today is 4th day of missing work. 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 Back problems started when he was a teenager. 2. LOCATION: Starts at waistline. Lower back anne down to calves. Tried muscle relaxer- didn't help, has been taking naproxen- didn't help at all. Tried XS tylenol and aleve- did not help. 3. SEVERITY: Severe, unable to do normal activities, has not gone to work for 4 days, has brought him to tears a couple times. Unable to bear weight on legs- extremely painful to walk. 4. PATTERN: Constant for 4 days- doesn't stop. 5. RADIATION: Numbness goes from buttocks to calves anne. 6. 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 This last 4 days has no idea what triggered it. 7. BACK OVERUSE: No heavy lifting, no strenous work or exercise. 8. MEDICINES: Muscle relaxers, if moves a certain way the sharp shooting pain jabs him. ES tylenol, naproxen, ibuprofen. 9. NEUROLOGIC SYMPTOMS: Has weakness in legs and numbness from buttocks to calves. Extreme pain when puts weight on legs. Feels like legs are constantly cold. No problems with bowel. Urinating small amount for all the liquids he drinks. Burning with urination for last 4 days. Having frequency. Urine is dark,. 10. OTHER SYMPTOMS: No fever. No abdominal pain. Burning with urination. 11. : N/A Protocols used: Back [id number]-[id number] documented in this encounter [facility] 12-20-2023 Note HNO ID: [id number] Author: ADRY RUGGIERO MD Service: ? Author Type: Physician Type: Progress Notes Filed: 01/10/2024 13:01 Note Text: Adry Ruggiero MD Department of Orthopaedics Orthopaedics [address] [facility] [address] Dept: [phone] Dept December 20, 2023 CHIEF COMPLAINT: Established Patient and Post Op of the Right Shoulder (4 weeks 3 days post op right shoulder open distal clavicle excision). HPI: Patient is here for post op. He states it is feeling better than the first surgery and has minimal pain that is controled with Tylenol. He is following post op protocol and taking it easy. ASSESSMENT: M25.511 Arthralgia of right acromioclavicular joint (primary encounter diagnosis) SUMMARY/PLAN: He is already 1 month out from surgery and doing quite well. I would just like for him to refrain from heavy lifting and heavy overhead just for a few more weeks but otherwise he is very pleased with his early results thus far. Exam: Surgical sites healed nicely. Full range of motion of shoulder. Supporting Information Below: Medications: Current Outpatient Medications Medication Sig EPINEPHrine (EPIPEN 2-SUMANTH) 0.3 mg/0.3 mL auto-injector [...] medications for this visit. Allergies: Seasonal Allergies Adry Ruggiero MD [facility] 12-20-2023 History of Presen t illness Narrative Adry Ruggiero MD Department of Orthopaedics Orthopaedics [address] [facility] [address] Dept: [phone] Dept December 20, 2023 CHIEF COMPLAINT: Established Patient and Post Op of the Right Shoulder (4 weeks 3 days post op right shoulder open distal clavicle excision). HPI: Patient is here for post op. He states it is feeling better than the first surgery and has minimal pain that is controled with Tylenol. He is following post op protocol and taking it easy. ASSESSMENT: M25.511 Arthralgia of right acromioclavicular joint (primary encounter diagnosis) SUMMARY/PLAN: He is already 1 month out from surgery and doing quite well. I would just like for him to refrain from heavy lifting and heavy overhead just for a few more weeks but otherwise he is very pleased with his early results thus far. Exam: Surgical sites healed nicely. Full range of motion of shoulder. Supporting Information Below: Medications: Current Outpatient Medications Medication Sig EPINEPHrine (EPIPEN 2-SUMANTH) 0.3 mg/0.3 mL auto-injector [...] medications for this visit. Allergies: Seasonal Allergies Adry Ruggiero MD documented in this encounter [facility] 12-10-2023 Note HNO ID: [id number] Author: YUMI YOUNG APRN.IRON WORKER APPRENTICE Service: ? Author Type: Nurse Practitioner Type: Progress Notes Filed: 12/10/2023 12:14 Note Text: SUBJECTIVE Moe Niño is a 43 year old male here today for a check up on his medical problems. Chief Complaint Patient presents with: Medication Request: needs updated epic pen Forms: [facility] and rash is coming back on forearms Pain: left buttocks clarisa horse that some time radiates down into leg HPI Moe Niño is a 43 year old male. Here [...] 0.3 MG/0.3 ML INJECTION, AUTO-INJECTOR Yumi Young APRN.IRON WORKER APPRENTICE Portions of this note have been entered (more content not included)... [facility] 11-26-2023 Note HNO ID: [id number] Author: Laine Emery PA-C Service: ? Author Type: Physician Deputy General Counsel Type: Progress Notes Filed: 11/26/2023 12:52 PM Note Text: Laine Emery PA-C Department of Orthopaedics Orthopaedics [address] [facility] [address] Dept: [phone] Dept November 26, 2023 CHIEF COMPLAINT: Established [...] motion in the shoulder, he has a [id number] shoulder jenifer that he can use. He [...] minimal discomfort. Imaging: Deferred today Mr. Moe Niño was advised as to contrast therapies and/or [...] Allergies This note was partially generated using [employer] voice recognition system, and there may be some incorrect words, spellings, and punctuation that were not noted in checking the note before saving. Laine Emery PA-C [facility] 11-26-2023 Note HNO ID: [id number] Author: Odette Hanson RN Service: ? Author [...] measure: Reposition, Cold, Heat Odette Hanson RN [facility] 11-19-2023 Note HNO ID: [id number] Author: Phoebe Jolly APRN.CRNA Service: Anesthesiology Author Type: Nurse Mohel Type: Anesthesia Procedure Notes Filed: 11/19/2023 2:41 PM Note Text: ANESTHESIOLOGY PROCEDURE NOTE Airway General Information Procedure Start Time/Medication Administration: 11/19/2023 2:29 PM Patient location during procedure: OR Timeout Performed Pre-procedure: timeout performed Consent Obtained: Yes Patient identity confirmed: arm band, care customer solutions teammate and patient Staffing FINANCIAL SERVICES AGENT: Phoebe Jolly APRN.FINANCIAL SERVICES AGENT Performed by: FLORENCIO Indications and Patient Condition Indications for airway [...] SIGNATURE: Phoebe Jolly APRN.CRNA PATIENT NAME: Moe Niño DATE: November 19, 2023 TIME: 2:40 PM CSN: [id number] [facility] 10-29-2023 Note HNO ID: [id number] Author: Yumi Young APRN.IRON WORKER APPRENTICE Service: ? Author Type: Nurse Practitioner Type: Progress Notes Filed: 10/29/2023 8:19 AM Note Text: SUBJECTIVE Moe Niño is a 43 year old male here today for a check up on his medical problems. Chief Complaint Patient presents with: Rash HPI Moe Niño is a 43 year old male. Here [...] worsen or fail to improve. Yumi Young APRN-QUOC [facility] 10-29-2023 History of Presen t illness Narrative SUBJECTIVE Moe Niño is a 43 year old male here today for a check up on his medical problems. Chief Complaint Patient presents with: Rash HPI Moe Niño is a 43 year old male. Here [...] worsen or fail to improve. Yumi Young APRN-QUOC documented in this encounter [facility] 10-11-2023 Note HNO ID: [id number] Author: Adry Ruggiero MD Service: ? Author Type: Physician Type: Progress Notes Filed: 11/04/2023 7:56 AM Note Text: Medium Joint Arthro/Inj: R AC Informed Consent Consent Obtained: Written [place] Protocol A moment to CARE was completed. [...] equipment, possible retained foreign bodies accounted for. [facility] 10-11-2023 Note HNO ID: [id number] Author: Adry Ruggiero MD Service: ? Author Type: Physician Type: Progress Notes Filed: 11/04/2023 7:56 AM Note Text: Adry Ruggiero MD Department of Orthopaedics Orthopaedics [address] [facility] [address] Dept: [phone] Dept October 11, 2023 CHIEF COMPLAINT: Established Patient of the Right Shoulder (US guided injection right shoulder) HPI: Patient is here for an ultrasound guided injection to the right shoulder. ASSESSMENT: M25.511 Arthralgia of right acromioclavicular joint (primary encounter diagnosis) PLAN: Patient here for an ultrasound-guided AC joint injection. Mr. Moe Niño was advised as to contrast therapies and/or to take analgesics/anti-inflammatories as needed and all contraindications were reviewed. OBJECTIVE: Mr. Moe Niño is a pleasant 43 year old in no apparent distress. Gen:There were no vitals taken for this visit. Imaging: IMPRESSION: Rotator cuff tendinosis with subscapularis low-grade interstitial tearing. Inferior labral tear with subcentimeter paralabral cysts. Prior distal clavicle resection versus osteolysis. Mild subdeltoid/subacromial bursitis. Board Lining Machine Operator[facility] Transcribe Date/Time: Sep 06 2023 10:48A Dictated [...] TOOTH wisdom teeth SHOULDER SURGERY HX 12/01/2022 [facility] Medications: Current Outpatient Medications Medication Sig triamcinolone [...] Psych (no depression, anxiety) Adry Ruggiero MD [facility] 10-11-2023 History of Presen t illness Narrative Associated Order(s): Medium Joint Arthro/Inj: R AC Post-Procedure Diagnose(s): Arthralgia of right acromioclavicular joint Medium Joint Arthro/Inj: R AC Informed Consent Consent Obtained: Written [place] Protocol A moment to CARE was completed. [...] Adry Ruggiero MD Department of Orthopaedics Orthopaedics [address] [place] [address] Dept: [phone] Dept October 11, 2023 CHIEF COMPLAINT: Established Patient of the Right Shoulder (US guided injection right shoulder) HPI: Patient is here for an ultrasound guided injection to the right shoulder. ASSESSMENT: M25.511 Arthralgia of right acromioclavicular joint (primary encounter diagnosis) PLAN: Patient here for an ultrasound-guided AC joint injection. Mr. Moe Niño was advised as to contrast therapies and/or to take analgesics/anti-inflammatories as needed and all contraindications were reviewed. OBJECTIVE: Mr. Moe Niño is a pleasant 43 year old in no apparent distress. Gen:There were no vitals taken for this visit. Imaging: IMPRESSION: Rotator cuff tendinosis with subscapularis low-grade interstitial tearing. Inferior labral tear with subcentimeter paralabral cysts. Prior distal clavicle resection versus osteolysis. Mild subdeltoid/subacromial bursitis. Board Lining Machine Operator: [facility] Transcribe Date/Time: Sep 06 2023 10:48A Dictated by : FRANKIE PATEL MD This examination was interpreted and the report reviewed and electronically signed by: SINDHU FANG MD on Sep 06 2023 2:40PM EST Results-Findings * * *Final Report* * * DATE OF EXAM: Sep 06 2023 9:15AM [facility] 0240 - MRI SHOULDER WO IVCON RT [...] TOOTH wisdom teeth SHOULDER SURGERY HX 12/01/2022 [facility] Medications: Current Outpatient Medications Medication Sig triamcinolone [...] Adry Ruggiero MD documented in this encounter [facility] 10-06-2023 Miscellaneous Notes Surgery scheduled as requested. Post op appointment scheduled and mailed to patient. Surgical request completed. Patient scheduled for Right shoulder distal clavicle excision on 11/19/23. documented in this encounter [facility] 10-05-2023 Note HNO ID: [id number] Author: Yumi Young APRN.IRON WORKER APPRENTICE Service: ? Author Type: Nurse Practitioner Type: Progress Notes Filed: 10/05/2023 8:29 AM Note Text: SUBJECTIVE Moe Niño is a 43 year old male here today for a check up on his medical problems. Chief Complaint Patient presents with: Derm Problem: itchy rash on bilateral lower arms for about 1 week HPI Moe Niño is a 43 year old male. Here [...] this patient Please (more content not included)... [facility] 10-04-2023 Note HNO ID: [id number] Author: Adry Ruggiero MD Service: ? Author Type: Physician Type: Progress Notes Filed: 10/04/2023 8:42 AM Note Text: Adry Ruggiero MD Department of Orthopaedics Orthopaedics [address] [facility] [address] Dept: [phone] Dept October 04, 2023 CHIEF COMPLAINT: Follow [...] both of these were reviewed. Mr. Moe Niño was advised as to contrast therapies and/or to take analgesics/anti-inflammatories as needed and all contraindications were reviewed. OBJECTIVE: Mr. Moe Niño is a pleasant 43 year old in [...] clavicle resection versus osteolysis. Mild subdeltoid/subacromial bursitis. Board Lining Machine Operator: [facility] Transcribe Date/Time: Sep 06 2023 10:48A Dictated [...] TOOTH wisdom teeth SHOULDER SURGERY HX 12/01/2022 [facility] Medications: Current Outpatient Medications Medication Sig acetaminophen [...] malaise, weight loss/gain) (more content not included)... [facility] 10-04-2023 History of Presen t illness Narrative Adry Ruggiero MD Department of Orthopaedics Orthopaedics [address] [facility] [address] Dept: [phone] Dept October 04, 2023 CHIEF COMPLAINT: Follow [...] both of these were reviewed. Mr. Moe Niño was advised as to contrast therapies and/or to take analgesics/anti-inflammatories as needed and all contraindications were reviewed. OBJECTIVE: Mr. Moe Niño is a pleasant 43 year old in [...] clavicle resection versus osteolysis. Mild subdeltoid/subacromial bursitis. Board Lining Machine Operator[facility] Transcribe Date/Time: Sep 06 2023 10:48A Dictated by : FRANKIE PATEL MD This examination was interpreted and the report reviewed and electronically signed by: SINDHU FANG MD on Sep 06 2023 2:40PM EST Results-Findings * * *Final Report* * * DATE OF EXAM: Sep 06 2023 9:15AM [facility] 0240 - MRI SHOULDER WO IVCON RT [...] TOOTH wisdom teeth SHOULDER SURGERY HX 12/01/2022 [facility] Medications: Current Outpatient Medications Medication Sig acetaminophen [...] Adry Ruggiero MD documented in this encounter [facility] 09-24-2023 Miscellaneous Notes Pt calling in for results from MRI on 09/06. Pt would like a return call with results and plan.Soco Poole RN documented in this encounter [facility] 09-06-2023 Note HNO ID: [id number] Author: Sandy Wade RT(Talisha) Service: ? Author Type: Technologist Type: Progress Notes Filed: 09/06/2023 9:10 AM Note Text: Radiology Service Progress Note PATIENT NAME: Moe Niño DATE OF SERVICE: September 06, 2023 TIME: [...] DATA: Not applicable SIGNED BY: RT Karsten(Talisha) September 06, 2023 9:10 AM [facility] 09-06-2023 History of Presen t illness Narrative Radiology Service Progress Note PATIENT NAME: Moe Niño DATE OF SERVICE: September 06, 2023 TIME: [...] DATA: Not applicable SIGNED BY: RT Karsten(Talisha) September 06, 2023 9:10 AM documented in this encounter [facility] 08-23-2023 Note HNO ID: [id number] Author: Soco Poole RN Service: ? Author Type: Registered Nurse Type: Progress Notes Filed: 08/23/2023 11:56 PM Note Text: Adry Ruggiero MD Department of Orthopaedics Orthopaedics [address] [facility] [address] Dept: [phone] Dept August 23, 2023 CHIEF COMPLAINT: New [...] at times. He had Shoulder Surgery at [facility] with Dr. Omalley 12/01/2022 which he states helped with the strength in his shoulder but the pain is still there. 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 Xrays on [...] the data I obtain. OBJECTIVE: Mr. Moe Niño is a pleasant 42 year old in [...] joint separation may be a differential consideration. Board Lining Machine Operator: REID Transcribe Date/Time: Jul 22 2023 3:59P [...] TOOTH wisdom teeth SHOULDER SURGERY HX 12/01/2022 [facility] Family History: FAMILY HISTORY Problem Relation Age [...] Right shoulder pain. (more content not included)... [facility] 08-23-2023 History of Presen t illness Narrative Adry Ruggiero MD Department of Orthopaedics Orthopaedics [address] [facility] [address] Dept: [phone] Dept August 23, 2023 CHIEF COMPLAINT: New [...] at times. He had Shoulder Surgery at [facility] with Dr. Omalley 12/01/2022 which he states helped with the strength in his shoulder but the pain is still there. 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 Xrays on 07/20/2023 in [facility]. ASSESSMENT: M25.511 Arthralgia of right acromioclavicular joint (primary encounter diagnosis) PLAN: I dont have any prior images, nor his operative note. It appears that he's having persistent AC joint symptoms. I'd like to get a new MRI of his shoulder. FOLLOW UP INSTRUCTIONS: Fu after MRI. We may consider an US injection, depending on the data I obtain. OBJECTIVE: Mr. Moe Niño is a pleasant 42 year old in [...] joint separation may be a differential consideration. Board Lining Machine Operator: REID Transcribe Date/Time: Jul 22 2023 3:59P [...] TOOTH wisdom teeth SHOULDER SURGERY HX 12/01/2022 [facility] Family History: FAMILY HISTORY Problem Relation Age [...] physician via US mail. Yumi Young [address] [address] Amanuel Tate DO [address] [address] Adry Ruggiero MD documented in this encounter [facility] 07-26-[address] Ruggiero does not [...] see when he is seeing ortho with [facility] for his back. 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 documented in this encounter [facility] 07-21-2023 Note HNO ID: [id number] Author: Sandy Wade RT(Talisha) Service: ? Author Type: Technologist Type: Progress Notes Filed: 07/21/2023 8:14 AM Note Text: Radiology Service Progress Note PATIENT NAME: Meo Niño DATE OF SERVICE: July 21, 2023 TIME: [...] RT Karsten(Talisha) July 21, 2023 8:13 AM [facility] 07-21-2023 History of Presen t illness Narrative Radiology Service Progress Note PATIENT NAME: Moe Niño DATE OF SERVICE: July 21, 2023 TIME: [...] RT Karsten(Talisha) July 21, 2023 8:13 AM documented in this encounter [facility] 07-20-2023 Note HNO ID: [id number] Author: Melissa Hector RT(Talisha) Service: ? Author Type: Conventional Underwriter Type: Progress Notes Filed: 07/20/2023 8:35 AM Note Text: Radiology Service Progress Note PATIENT NAME: Moe Niño DATE OF SERVICE: July 20, 2023 TIME: [...] RT Marge(Talisha) July 20, 2023 8:26 AM [facility] 07-20-2023 Note HNO ID: [id number] Author: Yumi Young APRN.IRON WORKER APPRENTICE Service: ? Author Type: Nurse Practitioner Type: Progress Notes Filed: 07/20/2023 10:22 AM Note Text: Consult toSUBJECTIVE Moe Niño is a 42 year old male here today acutely. Chief Complaint Patient presents with: Pain (Shoulder Pain): right shoulder no injury HPI Moe Niño is an 42 year old male presents [...] beneficial to s (more content not included)... [facility] 07-20-2023 History of Presen t illness Narrative Images from the original note were not included. Consult toSUBJECTIVE Moe Niño is a 42 year old male here today acutely. Chief Complaint Patient presents with: Pain (Shoulder Pain): right shoulder no injury HPI Moe Niño is an 42 year old male presents [...] Yumi Young APRN-QUOC documented in this encounter [facility] 06-18-2023 Note HNO ID: [id number] Author: Caterina Bryant RT(R) Service: Radiology Author Type: Technologist Type: Progress Notes Filed: 06/18/2023 8:36 AM Note Text: Radiology Service Progress Note PATIENT NAME: Moe Niño DATE OF SERVICE: June 18, 2023 TIME: [...] RT Darcy(R) June 18, 2023 8:28 AM [facility] 06-18-2023 Note HNO ID: [id number] Author: Yumi Young APRN.IRON WORKER APPRENTICE Service: ? Author Type: Nurse Practitioner Type: Progress Notes Filed: 06/18/2023 9:28 AM Note Text: SUBJECTIVE Moe Niño is a 42 year old male here today for a check up on his medical problems. Chief Complaint Patient presents with: Recheck: back pain and now a WC claim HPI Moe Niño is a 42 year old male established patient of Dr. Tate who presents today for follow up on persistent back pain. He was originally seen 06/08 for this, see HPI from that visit. 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 Omalley. Oxycodone after surgery made [...] xray but likel (more content not included)... [facility] 06-18-2023 History of Presen t illness Narrative Radiology Service Progress Note PATIENT NAME: Moe Niño DATE OF SERVICE: June 18, 2023 TIME: [...] 2023 8:28 AM documented in this encounter [facility] 06-08-2023 Note HNO ID: [id number] Author: Yumi Young APRN.IRON WORKER APPRENTICE Service: ? Author Type: Nurse Practitioner Type: Progress Notes Filed: 06/08/2023 10:09 AM Note Text: SUBJECTIVE Moe Niño is a 42 year old male here today for acute concern. Chief Complaint Patient presents with: Back Pain: lower back started about 1 week ago HPI Moe Niño is an 42 year old male presents today for back pain. Onset was a week ago but has been seen in the past for chronic low back pain issues. 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 [facility] 06-08-2023 History of Presen t illness Narrative SUBJECTIVE Moe Niño is a 42 year old male here today for acute concern. Chief Complaint Patient presents with: Back Pain: lower back started about 1 week ago HPI Moe Niño is an 42 year old male presents today for back pain. Onset was a week ago but has been seen in the past for chronic low back pain issues. 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 [...] Yumi Young APRN-QUOC documented in this encounter [facility] Arthralgia of right acromioclavicular joint- Primary Pain in joint, shoulder region Chronic right shoulder pain Pain in joint, shoulder region Ganglion cyst of foot Psoriatic arthritis (HCC) Psoriatic arthropathy [facility] Diagnosis Arthralgia of right acromioclavicular joint- Primary Pain in joint, shoulder region [facility] Diagnosis Arthralgia of right acromioclavicular joint- Primary Pain in joint, shoulder region [facility] Diagnosis Arthralgia of right acromioclavicular joint Pain in joint, shoulder region [facility] Diagnosis Acute midline low back pain with left-sided sciatica Radiculopathy of lumbar region Thoracic or lumbosacral neuritis or radiculitis, unspecified [facility] Diagnosis Acute midline low back pain with left-sided sciatica Radiculopathy of lumbar region Thoracic or lumbosacral neuritis or radiculitis, unspecified [facility] Diagnosis Arthralgia of right acromioclavicular joint- Primary Pain in joint, shoulder region documented in this encounter [facility] note* Diagnosis Arthralgia of right acromioclavicular joint- Primary Pain in joint, shoulder region Arthralgia of right acromioclavicular joint Pain in joint, shoulder region [facility] Diagnosis Eczema, unspecified type- Primary Depression screen Screening for depression Chronic right shoulder pain Pain in joint, shoulder region Arthralgia of right acromioclavicular joint Pain in joint, shoulder region documented in this encounter [facility] note* Diagnosis Arthralgia of right acromioclavicular joint- Primary Pain in joint, shoulder region Arthralgia of right acromioclavicular joint Pain in joint, shoulder region [facility] Diagnosis Arthralgia of right acromioclavicular joint- Primary Pain in joint, shoulder region documented in this encounter [facility] for referral (narrative)* Diagnostic Procedure Only (Urgent) - Closed Specialty Diagnoses / Procedures Referred By Álvaro colvin Referred To Contact XR IMAGING Diagnoses Acute midline low back pain with left-sided sciatica Radiculopathy of lumbar region Procedures XR LUMBAR GENERAL 3V AP/LAT/L5-S1 RADEX SPINE LUMBOSACRAL 2/3 VIEWS Yumi Young APRN.CNP [address] [place] [address] [place] [address] Referral ID Status Reason Start Date Expiration Date V isits Requested Visits Authorized [id number] Closed Auto-Generate d Referral 06/18/2023 07/17/2024 1 1 [facility] for visit Narrative* Diagnostic Procedure Only (Urgent) - Closed Specialty Diagnoses / Procedures Referred By Álvaro colvin Referred To Contact XR IMAGING Diagnoses Acute midline low back pain with left-sided sciatica Radiculopathy of lumbar region Procedures XR LUMBAR GENERAL 3V AP/LAT/L5-S1 RADEX SPINE LUMBOSACRAL 2/3 VIEWS Yumi Young APRN.IRON WORKER APPRENTICE [address] [place] [address] [place] [address] Referral ID Status Reason Start Date Expiration Date V isits Requested Visits Authorized [id number] Closed Auto-Generate d Referral 06/18/2023 07/17/2024 1 1 [facility] Medications Administered Section Inactive Administered Medications - [...] Referral Specialty Diagnoses / Procedures Referred By Álvaro colvin Referred To Contact Rheumatology Diagnoses Psoriatic arthritis (HCC) Procedures CONSULT TO RHEUM/IMMUN DISEASE OFFICE/OUTPATIENT [facility] 60-74 MINUTES Yumi Young APRN.IRON WORKER APPRENTICE [address] [place] [address] Referral ID Status Reason Start Date Expiration Date Visits Requested Visits Authorized [id number] Authorized PCP Requested Referral 07/20/2023 07/19/2024 1 1 Specialty Diagnoses / Procedures Referred By Contac t Referred To Contact XR IMAGING Diagnoses Chronic right shoulder pain Procedures XR SHOULDER GENERAL 3V OR MORE AP/TRUE AP/OTHER RIGHT RADEX SHOULDER COMPLETE MINIMUM 2 VIEWS Yumi Young APRN.IRON WORKER APPRENTICE [address] [place] [address] [place] [address] Referral ID Status Reason Start Date Expiration Date V isits Requested Visits Authorized [id number] Closed Auto-Generate d Referral 07/20/2023 08/18/2024 1 1 Specialty Diagnoses / Procedures Referred By Contac t Referred To Contact Orthopedics Diagnoses Arthralgia of right acromioclavicular joint Procedures CONSULT TO ORTHOPAEDICS OFFICE/OUTPATIENT [facility] 60-74 MINUTES Yumi Young APRN.IRON WORKER APPRENTICE [address] [place] [address] Referral ID Status Reason Start Date Expiration Date Visits Requested Visits Authorized [id number] Authorized PCP Requested Referral 07/26/2023 07/25/2024 1 1 Specialty Diagnoses / Procedures Referred By Contac t Referred To Contact MR IMAGING Diagnoses Arthralgia of right acromioclavicular joint Procedures MRI SHOULDER WO IVCON RIGHT MRI ANY JT UPPER EXTREMITY W/O CONTRAST MATRL Adry Ruggiero MD [address] [place] [address] [place] [address] Referral ID Status Reason Start Date Expiration Date Visits Requested Visits Authorized [id number] Authorized Auto-Generat ed Referral 08/23/2023 09/21/2024 1 1 Referral ID Status Reason Start Date Expiration Date V isits Requested Visits Authorized [id number] Closed Auto-Generate d Referral 08/23/2023 09/21/2024 1 1 Specialty Diagnoses / Procedures Referred By Contac t Referred To Contact MR IMAGING Diagnoses Acute midline low back pain with left-sided sciatica Radiculopathy of lumbar region Procedures MRI LUMBAR SPINE WO IVCON MRI SPINAL CANAL LUMBAR W/O CONTRAST MATERIAL Yumi Young APRN.IRON WORKER APPRENTICE [address] [place] [address] [place] [address] Referral ID Status Reason Start Date Expiration Date V isits Requested Visits Authorized [id number] Closed Auto-Generate d Referral 06/18/2023 07/17/2024 1 [...] or prosecute any alcohol or drug abuse patient.[facility] the event this information is protected by the Federal Confidentiality of Alcohol and Drug Abuse Patient Records regulations: The Federal rules restrict any use of the information to criminally investigate or prosecute any alcohol or drug abuse patient.[facility] the event this information is protected by the Federal Confidentiality of Alcohol and Drug Abuse Patient Records regulations: The Federal rules restrict any use of the information to criminally investigate or prosecute any alcohol or drug abuse patient.[facility] the event this information is protected by the Federal Confidentiality of Alcohol and Drug Abuse Patient Records regulations: The Federal rules restrict any use of the information to criminally investigate or prosecute any alcohol or drug abuse patient.[facility] the event this information is protected by the Federal Confidentiality of Alcohol and Drug Abuse Patient Records regulations: The Federal rules restrict any use of the information to criminally investigate or prosecute any alcohol or drug abuse patient.[facility] the event this information is protected by the Federal Confidentiality of Alcohol and Drug Abuse Patient Records regulations: The Federal rules restrict any use of the information to criminally investigate or prosecute any alcohol or drug abuse patient.[facility] the event this information is protected by the Federal Confidentiality of Alcohol and Drug Abuse Patient Records regulations: The Federal rules restrict any use of the information to criminally investigate or prosecute any alcohol or drug abuse patient.[facility] the event this information is protected by the Federal Confidentiality of Alcohol and Drug Abuse Patient Records regulations: The Federal rules restrict any use of the information to criminally investigate or prosecute any alcohol or drug abuse patient.[facility] the event this information is protected by the Federal Confidentiality of Alcohol and Drug Abuse Patient Records regulations: The Federal rules restrict any use of the information to criminally investigate or prosecute any alcohol or drug abuse patient.[facility] the event this information is protected by the Federal Confidentiality of Alcohol and Drug Abuse Patient Records regulations: The Federal rules restrict any use of the information to criminally investigate or prosecute any alcohol or drug abuse patient.[facility] the event this information is protected by the Federal Confidentiality of Alcohol and Drug Abuse Patient Records regulations: The Federal rules restrict any use of the information to criminally investigate or prosecute any alcohol or drug abuse patient.[facility] the event this information is protected by the Federal Confidentiality of Alcohol and Drug Abuse Patient Records regulations: The Federal rules restrict any use of the information to criminally investigate or prosecute any alcohol or drug abuse patient.[facility] the event this information is protected by the Federal Confidentiality of Alcohol and Drug Abuse Patient Records regulations: The Federal rules restrict any use of the information to criminally investigate or prosecute any alcohol or drug abuse patient.[facility] the event this information is protected by the Federal Confidentiality of Alcohol and Drug Abuse Patient Records regulations: The Federal rules restrict any use of the information to criminally investigate or prosecute any alcohol or drug abuse patient.[facility] the event this information is protected by the Federal Confidentiality of Alcohol and Drug Abuse Patient Records regulations: The Federal rules restrict any use of the information to criminally investigate or prosecute any alcohol or drug abuse patient.[facility] Reason for Visit (unrecogniz ed section and content) Reason Comments Pain (Shoulder Pain) right shoulder no i njury Reason Comments Results Reason Comments New Rt shoulder pain Specialty Diagnoses / Procedures Referred By Contac t Referred To Contact Orthopedics / ORTHOPAEDIC SURGERY Diagnoses Acute midline low back pain with left-sided sciatica Procedures CONSULT TO ORTHOPAEDICS OFFICE/OUTPATIENT NEW HIGH MDM 60-74 MINUTES Yumi Young APRN.IRON WORKER APPRENTICE [address] [place] [address] [facility] [address] [place] [address] Referral ID Status Reason Start Date Expiration Date V isits Requested Visits Authorized [id number] Closed PCP Requested Referral 06/18/2023 06/17/2024 1 1 Reason Comments Results Specialty Diagnoses / Procedures Referred By Contac t Referred To Contact MR IMAGING Diagnoses Arthralgia of right acromioclavicular joint Procedures MRI SHOULDER WO IVCON RIGHT MRI ANY JT UPPER EXTREMITY W/O CONTRAST Adry Salgado MD [address] [place] [address] [facility] [address] [address] Referral ID Status Reason Start Date Expiration Date V isits Requested Visits Authorized [id number] Closed Auto-Generate d Referral 08/23/2023 09/21/2024 1 1 Specialty Diagnoses / Procedures Referred By Contac t Referred To Contact MR IMAGING Diagnoses Acute midline low back pain with left-sided sciatica Radiculopathy of lumbar region Procedures MRI LUMBAR SPINE WO IVCON MRI SPINAL CANAL LUMBAR W/O CONTRAST MATERIAL Yumi Young APRN.IRON WORKER APPRENTICE [address] [place] [address] [place] [address] Referral ID Status Reason Start Date Expiration Date V isits Requested Visits Authorized [id number] Closed Auto-Generate d Referral 06/18/2023 07/17/2024 1 1 Reason Comments Follow Up Results - Mri Reason Comments Schedule Surgery Reason Comments Rash Reason Comments Established Patient US guided injection right shoulder Reason Comments Back Pain Reason Comments Established Patient 4 weeks 3 days post op right shoulder open distal clavicle excision Post Op 4 weeks 3 days post op right shoulder open distal clavicle excision Care Teams (unrecognized sec tion and content) Seaman Officer Relationship Specialty Start Date End Date Amanuel Tate DO [address] [place] [address] PCP - General Family Medicine 03/17/14 Seaman Officer Relationship Specialty Start Date End Date Amanuel Tate DO [address] [place] [address] PCP - General Family Medicine 03/17/14 Seaman Officer Relationship Specialty Start Date End Date Amanuel Tate DO [address] [place] [address] PCP - General Family Medicine 03/17/14 Seaman Officer Relationship Specialty Start Date End Date Amanuel Tate DO [address] [place] [address] PCP - General Family Medicine 03/17/14 Seaman Officer Relationship Specialty Start Date End Date Amanuel Tate DO [address] [place] [address] PCP - General Family Medicine 03/17/14 Seaman Officer Relationship Specialty Start Date End Date Amanuel Tate DO [address] [place] [address] PCP - General Family Medicine 03/17/14 Seaman Officer Relationship Specialty Start Date End Date Amanuel Tate DO [address] [place] [address] PCP - General Family Medicine 03/17/14 Seaman Officer Relationship Specialty Start Date End Date Amanuel Tate DO [address] [place] [address] PCP - General Family Medicine 03/17/14 Seaman Officer Relationship Specialty Start Date End Date Amanuel Tate DO [address] [place] [address] PCP - General Family Medicine 03/17/14 Seaman Officer Relationship Specialty Start Date End Date Amanuel Tate DO [address] [place] [address] PCP - General Family Medicine 03/17/14 Seaman Officer Relationship Specialty Start Date End Date Amanuel Tate DO [address] [place] [address] PCP - General Family Medicine 03/17/14 Seaman Officer Relationship Specialty Start Date End Date Amanuel Tate DO [address] [place] [address] PCP - General Family Medicine 03/17/14 (unrecognized sect ion and content) No Status Records FoundNo Status Records Found INFORMATION SOURCE (unrecogn ized section and content) DATE CREATED AUTHOR AUTHOR'S ORGANIZ ATION 01/11/2024 [facility] FOR RECORDS PERTAINING TO PATIENTS WHO ARE [...] BE BASED ON THE PRIMARY CLINICAL RECORDS. [employer] [facility]. provides no warranty or guarantee of the accuracy or completeness of information in this document.
== END | disposition home or self-care (01) ==
PROVIDERS: PCP Internal Medicine; Referring Provider Orthopaedic Surgery; Visit Provider Orthopaedic Surgery
DX: M48.061 Spinal stenosis, lumbar region without neurogenic claudication (principal); M47.26 Other spondylosis with radiculopathy, lumbar region; M51.36 Other intervertebral disc degeneration, lumbar region
CPT/HCPCS: 72148

== ENCOUNTER 2024-09-09 22:16 | Emergency (ER) | payer OTHER, SELFPAY ==
[2024-09-09 22:17] VITALS: BP 129/87; PULSE 62; RESP 16; TEMP 36.6; O2SAT 99; BMI 24.2
--- NOTE | 2024-09-09 22:35 | EX.ED.DYSGE1 ---
HPI History of Present Illness Chief Complaint: Complaint Informant: patient Narrative Narrative: Patient is a 43-year-old male with past medical history of remote kidney stone roughly 20 years ago and spinal stenosis at the L5-S1 region secondary to protruding disc. He states over the past 5 to 7 days he has been having difficulty urinating and states has been painful to do so. He denies any hematuria he denies any penile discharge or lesions or concern for STD. He states he feels like each day has gotten worse and he is afraid to drink anything because he has concerned that he will not be able to urinate or be very painful to do so. Secondary to the persistent dysuria and difficulty urinating he presents for evaluation. Patient denies pain with defecation or rectal discharge or history of prostate issues [facility] Medical History Kidney stone Home Medications ?Medication ?Instructions ?Recorded ?Last Taken ?Type epinephrine 0.3 mg/0.3 mL 0.3 mg (0.3 mL) IM .once PRN 07/13/21 Unknown Rx injection, auto-injector anaphylaxis #2 ea clobetasol 0.05 % topical ointment 1 applic topical BID 12/31/23 Unknown History oxycodone-acetaminophen 5 mg-325 1 tab PO Q8H PRN pain 3 days #10 12/31/23 Unknown Rx mg tablet (Percocet) tabs prednisone 50 mg tablet 50 mg PO DAILY #6 tabs 12/31/23 Unknown Rx cephalexin 500 mg capsule 500 mg PO TID 7 days #21 caps 09/10/24 Unknown Rx hydrocodone-acetaminophen 5-325mg 1 tab PO Q6H PRN pain 5 days #20 09/10/24 Unknown Rx 5mg-325mg tabs ketorolac 10 mg tablet 10 mg PO 4X/DAY PRN pain 5 days 09/10/24 Unknown Rx #20 tabs ondansetron HCl 4 mg tablet 4 mg PO TID PRN nausea and 09/10/24 Unknown Rx vomiting #21 tabs tamsulosin 0.4 mg capsule (Flomax) 0.4 mg PO DAILY 14 days #14 caps 09/10/24 Unknown Rx Allergy/AdvReac Type Severity Reaction Status Date / Time bee venom protein (honey bee) Allergy Anaphylaxis Verified 09/09/24 22:19 Social History Smoking Status: Never smoker ROS ROS ED Constitutional Constitutional ED: Denies chills or fever(s) ENT ENT ED: Denies sore throat Cardiovascular Cardiovascular: Denies chest pain Respiratory/Chest Respiratory/Chest: Denies cough or dyspnea Gastrointestinal Gastrointestinal: Reports abdominal pain; Denies diarrhea, nausea or vomiting Genitourinary Genitourinary ED: Reports dysuria; Denies hematuria or urinary frequency Musculoskeletal Musculoskeletal: Reports back pain Integumentary Denies rash Neurologic Neurologic: Denies headache(s) Hematologic/Lymphatic Hematologic/Lymphatic: Denies easy bleeding or easy bruising EXAM Physical Exam Const Vital Signs: 09/09/24 22:17 Temperature 98 F Temperature Source Oral Pulse Rate 62 Respiratory Rate 16 Blood Pressure 129/87 H Blood Pressure Mean 101 Pulse Ox 99 Oxygen Delivery Method Room Air Positive well nourished and well developed General Appearance ED: well developed; Negative for pallor HEENT HEENT Narrative: Normocephalic atraumatic Eyes PERRL and EOMs intact bilaterally General Eye ED: Negative for scleral icterus Neck supple Resp normal respiratory effort and clear to auscultation bilaterally Cardio regular rate and regular rhythm Rate: other Other Details: Regular rate and rhythm without murmurs rubs or gallop Radial and carotid pulses are equal and symmetric GI GI Narrative: There is organomegaly in the suprapubic/midline lower abdominal region consistent with a distended bladder. There is pain on palpation at this site. Otherwise remainder of abdominal exam is soft and nontender and nondistended with normal active bowel sounds and no pulsatile mass Auscultation: normoactive bowel sounds Palpation: soft Narrative: Normal circumcised male without blood or discharge from the urethral meatus. No stricture formation noted. No overlying soft tissue changes to suggest Ty's gangrene Back/Spine Back/Spine Narrative: Bilateral CVA pain noted Extremity normal to inspection Neuro oriented x3, CN's II-XII intact bilaterally and no sensory deficits noted Sensorium / Orientation: alert Motor Exam: strength 5/5 throughout Psych mental status grossly normal Skin no rashes or lesions noted and no wounds General Skin Exam: Negative for jaundice or pallor MDM MDM MDM Narrative Medical decision making narrative: Patient presented ER complaining of difficulty urinating and had lower abdominal pain along with bilateral flank pain. Concern is for UTI versus prostatitis versus pyelonephritis versus kidney stone versus urinary retention. On exam I felt like he had distended bladder but bladder scan does not confirm this and therefore I feel no need for Martin catheter. His urine sample showed no sign of infection going against UTI pyelonephritis or prostatitis. There was hematuria however which is concern for kidney stone especially with flank pain so noncontrast CT was obtained. This showed a 2 mm stone in the right UVJ region which would correlate with his hematuria and symptoms. The patient does not have urosepsis or acute kidney injury and after Toradol his pain is improved. Therefore there is no need for emergent urology consultation. Patient can be placed on symptomatic medication and is otherwise safe for discharge. History & Record Review Discussion w/independent historian: Patient Lab Data Attestation: I reviewed the patient's lab results. Labs: Laboratory Results - last 24 hr 09/09/24 09/09/24 22:30 22:40 WBC 6.7 RBC 4.49 L Hgb 13.7 Hct 41.3 MCV 92.0 MCH 30.5 MCHC 33.2 RDW Std Deviation 42.5 RDW Coeff of Latosha 12.4 Plt Count 231 MPV 9.8 Immature Gran % (Auto) 0.300 Neut % (Auto) 53.4 Lymph % (Auto) 32.0 [place] % (Auto) 11.7 H Eos % (Auto) 2.2 Baso % (Auto) 0.4 Absolute Neuts (auto) 3.6 Absolute Lymphs (auto) 2.14 Nucleated RBC % 0 Sodium 141 Potassium 3.5 Chloride 107 Carbon Dioxide 27.0 Anion Gap 7 BUN 18 Creatinine 1.21 Estim Creat Clear Calc 68.47 Est GFR (MDRD) Af Amer 84 Est GFR (MDRD) Non-Af 69 BUN/Creatinine Ratio 14.9 Glucose 130 H Calcium 9.2 Urine Color Yellow Urine Clarity Clear Urine pH 6.0 Ur Specific [place] 1.020 Urine Protein 15 H Urine Glucose (UA) Normal Urine Ketones Negative Urine Occult Blood 150 H Urine Nitrite Negative Urine Bilirubin Negative Urine Urobilinogen 1 H Ur Leukocyte Esterase Negative Urine RBC 10-25 SEEN Urine WBC 0 SEEN Ur Squamous Epith Cells 0 SEEN Amorphous Sediment 2+ Urine Bacteria RARE Urine Mucus 0 SEEN Radiography Diagnostic Testing: Clinical Impression(s) from Imaging Studies Abdomen/Pelvis CT 09/09/24 23:03 IMPRESSION: Distal right ureteral calculus with mild right hydroureteronephrosis. Bilateral nephrolithiasis. L4-5 and L5-S1 disc bulge/herniation is new. MRI may be helpful for further evaluation as clinically indicated. Electronically Signed: Zena Bhatia MD at 0:01 EDT , Discharge Plan Triage Chief Complaint: Complaint ED Provider: Patric Plascencia Dx/Rx/DC Orders Clinical Impression: Kidney stone, Renal colic, Lumbar spinal stenosis Instructions: ED Kidney Stone with Pain Prescriptions: New ondansetron HCl 4 mg tablet 4 mg PO TID PRN (Reason: nausea and vomiting) Qty: 21 0RF cephalexin 500 mg capsule 500 mg PO TID 7 Days Qty: 21 0RF tamsulosin [Flomax] 0.4 mg capsule 0.4 mg PO DAILY 14 Days Qty: 14 0RF hydrocodone-acetaminophen 5-325 mg tablet 1 tab PO Q6H PRN (Reason: pain) 5 Days Qty: 20 0RF ketorolac 10 mg tablet 10 mg PO 4X/DAY PRN (Reason: pain) 5 Days Qty: 20 0RF No Action epinephrine 0.3 mg/0.3 mL auto-injector 0.3 mg IM .once PRN (Reason: anaphylaxis) Qty: 2 0RF clobetasol 0.05 % ointment 1 applic TOPICAL BID Patient Comments: Apply to affected area two times a day. oxycodone-acetaminophen [Percocet] 5-325 mg tablet 1 tab PO Q8H PRN (Reason: pain) 3 Days Qty: 10 0RF prednisone 50 mg tablet 50 mg PO DAILY Qty: 6 0RF Primary Care Provider: Emma Young NP Referrals: Chetan Mckeon MD [Med Staff - Active Staff] - Emma Young NP, [facility] [Primary Care Provider] - Activity Restrictions/Additional Instructions: Please take your prescribed medication as directed to help control your symptoms from the kidney stone. Follow-up with urology to discuss further treatment options such as stent placement if pain persist. If your pain is not controlled to prescribed medication or you develop a fever over 100.4 please return to the ER for repeat evaluation. Print Language: Nauruan Disposition Disposition: Home, Self Care
[2024-09-09 22:46] LABS: Mucous, Urine 0 SEEN /hpf (<or=2+); Squamous Epithelial Cells - UA 0 SEEN /hpf (0-5); White Blood Cells 0 SEEN /hpf (0-5)
[2024-09-09 22:50] LABS: Absolute Lymphocyte Count 2.14 X10^3/uL (0.83-4.51); Absolute Neutrophil Count 3.6 X10^3/uL (2.0-7.7); Basophil# 0.03 X10^3/uL; Basophil% 0.4 % (0-1); Eosinophil# 0.15 X10^3/uL; Eosinophils% 2.2 % (0-5); Hematocrit 41.3 % (40-54); Hemoglobin 13.7 g/dL (13.0-16.5); Lymphocyte # 2.14 X10^3/ul (0.83-4.51); Mean Corp Hgb Conc 33.2 g/dL (32-36); Mean Corpuscular Hgb 30.5 pg (27.0-32.0); Mean Platelet Vol. 9.8 fl (6.2-12.0); Monocyte# 0.78 X10^3/uL; Monocyte% 11.7 % (0-10); NRBC Flagged by Analyzer 0 % (0-5); Neutrophil # 3.56 X10^3/uL (2.7-7.7); Neutrophil % 53.4 % (47-70); Platelet Count 231 K/mm3 (150-450); RBC Distribution Width CV 12.4 % (11.6-14.6); RBC Distribution Width SD 42.5 fl (35.1-43.9); Red Blood Count 4.49 M/mm3 (4.6-6.2); White Blood Count 6.7 K/mm3 (4.4-11.0)
[2024-09-09 22:51] LABS: Color, Urine Yellow (Yellow); Glucose, Dipstick Normal (Normal); Ketone-Dipstick Negative (Negative); Leukocyte Esterase-Dipstick Negative /ul (Negative); Nitrite-Dipstick Negative (Negative); Occult Blood-Urine 150 /ul (Negative); Protein-Dipstick 15 mg/dl (Negative); Urine Bilirubin Dipstick Negative (Negative); Urine Clarity Clear (Clear); Urine Urobilinogen 1 mg/dl (Normal)
[2024-09-09 23:00] LABS: Bacteria RARE /hpf (None Seen); Red Blood Cells-Urine 10-25 SEEN /hpf (0-5)
[2024-09-09 23:01] LABS: Amorphous Sediment 2+
--- NOTE | 2024-09-09 23:03 | CT_ITS ---
EXAM: CT Abdomen And Pelvis W/O Contrast Injection HISTORY: abd pain / ? kidney stone TECHNIQUE: Routine protocol CT abdomen and pelvis. IV Contrast: None.. Oral contrast: None. RADIATION DOSAGE (If Supplied By Facility): CTDIvol = ( 6.08 ) mGy, DLP = ( 307.07 ) mGycm Individualized dose optimization techniques were used for this CT. COMPARISON: CT abdomen and pelvis 06/13/2018. LIMITATIONS: None. FINDINGS: LOWER CHEST: Included lung bases are clear. LIVER: Grossly unremarkable. GALLBLADDER AND BILIARY TREE: Grossly unremarkable. PANCREAS: Grossly unremarkable. SPLEEN: Grossly unremarkable. ADRENAL GLANDS: Grossly unremarkable. KIDNEYS AND URETERS: There is a 2 mm calculus in the distal right ureter at the ureterovesical junction. The right ureter is dilated with mild right hydronephrosis and perinephric stranding. A few small calculi in both kidneys. No hydronephrosis on the left. Small cyst noted in the left kidney, no follow-up needed. PERITONEUM: No free air. No free fluid. BOWEL: No bowel obstruction. APPENDIX: Visualized and unremarkable. No evidence of acute appendicitis. VESSELS: Abdominal aorta is normal caliber. REPRODUCTIVE ORGANS: Grossly unremarkable URINARY BLADDER: Minimally distended. ABDOMINAL WALL: Unremarkable. BONES: No acute abnormalities. Mild degenerative changes of the lumbar spine. L4-5 moderate disc bulge versus herniation, and left paracentral disc bulge/herniation, appear new compared to the prior. CT/Abdomen/Pelvis without Cont IMPRESSION: Distal right ureteral calculus with mild right hydroureteronephrosis. Bilateral nephrolithiasis. L4-5 and L5-S1 disc bulge/herniation is new. MRI may be helpful for further evaluation as clinically indicated. Electronically Signed: Zena Bhatia MD at 0:01 EDT ,
[2024-09-09 23:04] LABS: Anion Gap 7 (5-15); BUN 18 mg/dL (7-18); BUN/Creat Ratio 14.9 RATIO (10-20); Calcium,Total 9.2 mg/dL (8.5-10.1); Chloride 107 mmol/L (98-107); Creatinine, Serum 1.21 mg/dL (0.70-1.30); EST Glomerular Filtration Rate 69 mL/min (>60); Est Glom Filt Rate - Afr Amer 84 mL/min (>60); Estimated Creatinine Clearance 68.47 ml/min; Glucose 130 mg/dL (74-106); Potassium 3.5 mmol/L (3.5-5.1); Sodium Level 141 mmol/L (136-145)
[2024-09-09] MEDS: Ketorolac 30 MG/ML Syringe IV (23:06)
[2024-09-10 00:17] VITALS: PULSE 60; RESP 16; O2SAT 97
[2024-09-10 01:01] VITALS: BP 102/79; PULSE 69; RESP 16; TEMP 36.6; O2SAT 100
[2024-09-10] MEDS: HYDROcodone Bitartrate/Apap 5/325 Tablet PO (01:02)
== END 2024-09-10 01:03 | disposition home or self-care (01) ==
PROVIDERS: Emergency Provider Emergency Medicine; PCP Internal Medicine; Visit Provider Emergency Medicine
DX: N13.2 Hydronephrosis with renal and ureteral calculous obstruction (principal); N23 Unspecified renal colic; M48.061 Spinal stenosis, lumbar region without neurogenic claudication
CPT/HCPCS: 74176; 80048; 81001; 85025; 96374; 99283; A4216

== ENCOUNTER 2025-01-22 05:31 | Emergency (ER) | payer OTHER, SELFPAY ==
[2025-01-22 05:34] VITALS: BP 139/75; PULSE 69; RESP 18; TEMP 36.4; O2SAT 100; BMI 24.3
--- NOTE | 2025-01-22 05:46 | CT_ITS ---
PROCEDURE: ABDOMEN/PELVIS WITHOUT CONT REASON FOR EXAM: Left flank pain radiating to left groin since last night TECHNIQUE: Abdomen and pelvis CT without intravenous contrast. Coronal and sagittal reformatted images COMPARISON: 09/09/2024 FINDINGS: Noncontrast technique limits evaluation of the abdominal and pelvic viscera. Lung bases: Clear Liver: Unremarkable. Gallbladder: Unremarkable. Spleen: Unremarkable. Pancreas: Unremarkable. Adrenals: Unremarkable. Kidneys: 2 mm distal left ureteral stone approximately 1 cm from the left UVJ with mild left hydroureteronephrosis and mild left perinephric stranding. Small right and a punctate right nonobstructing intrarenal stones without right hydronephrosis.. Bladder: Unremarkable. Reproductive Organs: Unremarkable. Bowel: Unremarkable. Appendix: Normal. No free fluid. No free air. Bones: Unremarkable. CT/Abdomen/Pelvis without Cont IMPRESSION: 2 mm distal left ureteral stone approximately 1 cm from the left UVJ with mild left hydroureteronephrosis and mild left perinephric stranding. One or more dose reduction techniques were used (e.g., Automated exposure contr ol, adjustment of the mA and/or kV according to patient size, use of iterative reconstruction technique). Reading Location: [id number]
[2025-01-22] MEDS: Ondansetron 4 MG/2 ML Vial IV (05:54)
[2025-01-22] MEDS: Morphine 4 MG/ML Syringe IV ×2 (05:54→07:59)
[2025-01-22] MEDS: Ketorolac 15 MG/ML Vial IV (05:54)
[2025-01-22 06:00] LABS: Absolute Lymphocyte Count 1.19 X10^3/uL (0.83-4.51); Basophil# 0.02 X10^3/uL; Basophil% 0.2 % (0-1); Eosinophil# 0.04 X10^3/uL; Eosinophils% 0.4 % (0-5); Lymphocyte # 1.19 X10^3/ul (0.83-4.51); Lymphocyte % 10.8 % (19-41); Mean Corp Hgb Conc 33.3 g/dL (32-36); Mean Corpuscular Hgb 31.3 pg (27.0-32.0); Mean Corpuscular Volume 93.8 fL (80-94); Mean Platelet Vol. 10.2 fl (6.2-12.0); Monocyte# 0.74 X10^3/uL; Monocyte% 6.7 % (0-10); NRBC Flagged by Analyzer 0 % (0-5); Neutrophil # 8.97 X10^3/uL (2.7-7.7); Neutrophil % 81.5 % (47-70); Platelet Count 229 K/mm3 (150-450); RBC Distribution Width CV 12.8 % (11.6-14.6); RBC Distribution Width SD 43.9 fl (35.1-43.9); Red Blood Count 4.48 M/mm3 (4.6-6.2)
--- NOTE | 2025-01-22 06:01 | EDS_ITS ---
HPI <Dr. Dhiraj Ansari DO - Last Filed: 01/23/25 03:08> History of Present Illness Chief Complaint: Flank Pain Informant: patient Narrative Narrative: Left flank pain since yesterday afternoon no rating to his groin. No dysuria or hematuria. No fever chills. Nausea vomiting is evening. No hematemesis. History of kidney stones in the past most recent 4 months ago. No history of interventions required. Does not follow urologist. Allergy to Demerol has tolerated morphine in the past. Denies history of gastric ulcers or kidney injury. Prior similar symptoms: Yes PFSH <Dr. Dhiraj Ansari DO - Last Filed: 01/23/25 03:08> [facility] Medical History Rotator cuff arthropathy of both shoulders Kidney stone Home Medications ?Medication ?Instructions ?Recorded ?Last Taken ?Type epinephrine 0.3 mg/0.3 mL 0.3 mg (0.3 mL) IM .once PRN 07/13/21 Unknown Rx injection, auto-injector anaphylaxis #2 ea clobetasol 0.05 % topical ointment 1 applic topical BI D 12/31/23 Unknown History oxycodone-acetaminophen 5 mg-325 1 tab PO Q8H PRN pain 3 days #10 12/31/23 Unknown Rx mg tablet (Percocet) tabs prednisone 50 mg tablet 50 mg PO DAILY #6 tabs 12/31 Unknown Rx cephalexin 500 mg capsule 500 mg PO TID 7 days #21 cap s 09/10/24 Unknown Rx hydrocodone-acetaminophen 5-325mg 1 tab PO Q6H PRN ben n 5 days #20 09/10/24 Unknown Rx 5mg-325mg tabs ketorolac 10 mg tablet 10 mg PO 4X/DAY PRN pain 5 d ays 09/10/24 Unknown Rx #20 tabs ondansetron HCl 4 mg tablet 4 mg PO TID PRN nausea and 09/10/24 Unknown Rx vomiting #21 tabs tamsulosin 0.4 mg capsule (Flomax) 0.4 mg PO DAILY 14 days #14 caps 09/10/24 Unknown Rx ibuprofen 600 mg tablet 600 mg PO Q6H PRN PRN pain # 20 01/22/25 Unknown Rx TABLETS ondansetron 4 mg disintegrating 4 mg PO Q8H PRN PRN Na usea #10 tabs 01/22/25 Unknown Rx tablet oxycodone-acetaminophen 5 mg-325 1 tab PO Q6H PRN PRN Pain 3 days 01/22/25 Unknown Rx mg tablet #12 TABLETS Allergy/AdvReac Type Severity Reaction Status Date / Time meperidine (From Demerol) Allergy Mild Vomiting Verified 01/22/25 05:32 bee venom protein (honey bee) Allergy Anaphylaxis Verified 01/22/25 05:32 Social History Smoking Status: Never smoker ROS <Dr. Dhiraj Ansari DO - Last Filed: 01/23/25 03:08> ROS ED Constitutional Constitutional ED: Denies chills, fever(s) or sweats ENT ENT ED: Denies sore throat Cardiovascular Cardiovascular: Denies chest pain, leg edema, palpitations or racing heartbeat Respiratory/Chest Respiratory/Chest: Denies cough, dyspnea or dyspnea on exertion Gastrointestinal Gastrointestinal: Denies abdominal pain, diarrhea, nausea or vomiting Genitourinary Genitourinary ED: Denies dysuria, hematuria or urinary frequency Musculoskeletal Musculoskeletal: Reports back pain; Denies extremity pain or neck pain Integumentary Denies rash or wounds Neurologic Neurologic: Denies headache(s), paresthesias or weakness EXAM <Dr. Dhiraj Ansari DO - Last Filed: 01/23/25 03:08> Physical Exam Const Vital Signs: 01/22/25 05:34 01/22/25 07:44 01/22/25 09:11 Temperature 97.6 F L Temperature Source Oral Pulse Rate 69 84 71 Respiratory Rate 18 16 15 Blood Pressure 139/75 H 138/79 H 124/76 H Blood Pressure Mean 96 98 92 Pulse Ox 100 97 98 Oxygen Delivery Method Room Air Room Air Room Air 01/22/25 09:23 Temperature 97.2 F L Temperature Source Pulse Rate 84 Respiratory Rate 16 Blood Pressure 125/79 H Blood Pressure Mean 94 Pulse Ox 99 Oxygen Delivery Method Positive well nourished and well developed Constitutional Narrative: Nontoxic uncomfortable. General Appearance ED: well developed HEENT Reports moist mucous membranes normocephalic and atraumatic Eyes General Eye ED: Yes normal appearance of both eyes Neck full ROM Chest Wall Chest: Negative for tenderness Resp normal respiratory effort and normal air movement Effort and Inspection: symmetric chest movement; Negative for respiratory distress Cardio regular rate, regular rhythm and no murmurs Peripheral Pulses: pulses 2+ throughout GI normal to inspection, nondistended, normoactive bowel sounds and non-tender Palpation: Negative for guarding or rebound tenderness present Back/Spine no CVA tenderness Back/Spine Narrative: No rash left flank region. Extremity normal to inspection General Extremety ED: Negative for edema or tenderness General Extremity: Negative for edema Neuro oriented x3 and no sensory deficits noted Sensorium / Orientation: awake and alert Skin no rashes or lesions noted and no wounds <Dr. Ramakrishna Burnham MD - Last Filed: 01/22/25 09:19> Physical Exam Const Vital Signs: 01/22/25 05:34 01/22/25 07:44 01/22/25 09:11 Temperature 97.6 F L Temperature Source Oral Pulse Rate 69 84 71 Respiratory Rate 18 16 15 Blood Pressure 139/75 H 138/79 H 124/76 H Blood Pressure Mean 96 98 92 Pulse Ox 100 97 98 Oxygen Delivery Method Room Air Room Air Room Air 01/22/25 09:23 Temperature 97.2 F L Temperature Source Pulse Rate 84 Respiratory Rate 16 Blood Pressure 125/79 H Blood Pressure Mean 94 Pulse Ox 99 Oxygen Delivery Method MDM <Dr. Dhiraj Ansari DO - Last Filed: 01/23/25 03:08> MDM MDM Narrative Medical decision making narrative: Interventions / MDM: Differential diagnosis: Kidney stone, renal colic Diagnosis considered but do not suspect: UTI however urine negative. My EKG interpretation: N/A Imaging independently reviewed and interpreted by myself: CT abdomen pelvis without contrast: 2 mm distal left ureteral stone near the UVJ. External documents reviewed: N/A Test considered but not ordered:N/A ED course: Left flank pain rating to groin. History kidney stones. Renal stone protocol initiated. Labs urine ordered. CT scan ordered. IV fluids, basic labs urine ordered. 0745: CT scan 2 mm distal ureteral stone near the UVJ. Require additional morphine. White count 11, creatinine 1.27. There was initial urine running in the lab noting leukocytes, discussed with patient waiting for the rest results, however he states he has not provided a urine. Therefore called the lab to discard the urine, will wait for urine sample from patient to medical office receptionist. Patient signed out to Dr. Burnham. Re-evaluation: stable Disposition discussed with patient/family/significant other: Patient Case discussed with consulting clinician: N/A This note was generated with [employer] dictation software. It may contain incorrect words, spelling, and punctuation that were not noted in checking the note before signing. The patient turned over to me around 8:30 AM. UA is negative. CBC unremarkable. Chemistries unremarkable normal BUN and creatinine. Repeat exam at 9:16 AM patient doing well. Pain-free. Comfortable being discharged home. We discussed his test results. Lab Data Attestation: I reviewed the patient's lab results. Labs: Laboratory Results - last 24 hr 01/22/25 01/22/25 01/22/25 05:35 05:57 07:54 WBC 11.0 RBC 4.48 L Hgb 14.0 Hct 42.0 MCV 93.8 MCH 31.3 MCHC 33.3 RDW Std Deviation 43.9 RDW Coeff of Latosha 12.8 Plt Count 229 MPV 10.2 Immature Gran % (Auto) 0.400 Neut % (Auto) 81.5 H Lymph % (Auto) 10.8 L [place] % (Auto) 6.7 Eos % (Auto) 0.4 Baso % (Auto) 0.2 Absolute Neuts (auto) 9.0 H Absolute Lymphs (auto) 1.19 Nucleated RBC % 0 Sodium 136 Potassium 3.8 Chloride 103 Carbon Dioxide 25.0 Anion Gap 8 BUN 13 Creatinine 1.27 Estim Creat Clear Calc 64.57 Est GFR (MDRD) Af Amer 79 Est GFR (MDRD) Non-Af 65 BUN/Creatinine Ratio 10.2 Glucose 134 H Calcium 9.6 Urine Color Cancelled Yellow Urine Clarity Cancelled Cloudy Urine pH Cancelled 6.5 Ur Specific Bone Gap Cancelled 1.020 U Specif Grav (Refrac) Cancelled Urine Protein Cancelled 30 H Urine Glucose (UA) Cancelled Normal Urine Ketones Cancelled 15 H Urine Occult Blood Cancelled 150 H Urine Nitrite Cancelled Negative Urine Bilirubin Cancelled Negative Urine Urobilinogen Cancelled Normal Ur Leukocyte Esterase Cancelled 25 H Urine RBC Cancelled 0-5 SEEN Urine WBC Cancelled 0-5 SEEN Ur Squamous Epith Cells Cancelled 0-5 SEEN Ur Transition Epith Cell Cancelled Ur Renal Epithelial Cell Cancelled Calcium Oxalate Crystal Cancelled Uric Acid Crystals Cancelled Triple Phos Crystals Cancelled Other Crystals Cancelled Amorphous Sediment Cancelled Urine Bacteria Cancelled 3+ Hyaline Casts Cancelled 0-5 SEEN Fine Granular Casts Cancelled Coarse Granular Casts Cancelled Waxy Casts Cancelled RBC Casts Cancelled WBC Casts Cancelled Urine Mucus Cancelled 1+ Urine Trichomonas Cancelled Urine Yeast Cancelled Radiography Diagnostic Testing: Clinical Impression(s) from Imaging Studies Abdomen/Pelvis CT 01/22/25 05:46 IMPRESSION: 2 mm distal left ureteral stone approximately 1 cm from the left UVJ with mild left hydroureteronephrosis and mild left perinephric stranding. One or more dose reduction techniques were used (e.g., Automated exposure control, adjustment of the mA and/or kV according to patient size, use of iterative reconstruction technique). Reading Location: [id number] <Dr. Ramakrishna Burnham MD - Last Filed: 01/22/25 09:19> MDM MDM Narrative Medical decision making narrative: Interventions / MDM: Differential diagnosis: Diagnosis considered but do not suspect: N/A My EKG interpretation: N/A Imaging independently reviewed and interpreted by myself: CT abdomen pelvis wit hout contrast: External documents reviewed: N/A Test considered but not ordered:N/A ED course: Left flank pain rating to groin. History kidney stones. Renal stone protocol initiated. Labs urine ordered. CT scan ordered. IV fluids, basic labs urine ordered. 0745: CT scan 2 mm distal ureteral stone near the UVJ. Require additional morphine. White count 11, creatinine 1.27. There was initial urine running in the lab noting leukocytes, discussed with patient waiting for the rest results, however he states he has not provided a urine. Therefore called the lab to discard the urine, will wait for urine sample from patient to medical office receptionist. Re-evaluation: stable Disposition discussed with patient/family/significant other: Case discussed with consulting clinician: N/A This note was generated with [employer] dictation software. It may contain incorrect words, spelling, and punctuation that were not noted in checking the note before signing. The patient turned over to me around 8:30 AM. UA is negative. CBC unremarkable. Chemistries unremarkable normal BUN and creatinine. Repeat exam at 9:16 AM patient doing well. Pain-free. Comfortable being discharged home. We discussed his test results. Lab Data Labs: Laboratory Results - last 24 hr 01/22/25 01/22/25 01/22/25 05:35 05:57 07:54 WBC 11.0 RBC 4.48 L Hgb 14.0 Hct 42.0 MCV 93.8 MCH 31.3 MCHC 33.3 RDW Std Deviation 43.9 RDW Coeff of Latosha 12.8 Plt Count 229 MPV 10.2 Immature Gran % (Auto) 0.400 Neut % (Auto) 81.5 H Lymph % (Auto) 10.8 L [place] % (Auto) 6.7 Eos % (Auto) 0.4 Baso % (Auto) 0.2 Absolute Neuts (auto) 9.0 H Absolute Lymphs (auto) 1.19 Nucleated RBC % 0 Sodium 136 Potassium 3.8 Chloride 103 Carbon Dioxide 25.0 Anion Gap 8 BUN 13 Creatinine 1.27 Estim Creat Clear Calc 64.57 Est GFR (MDRD) Af Amer 79 Est GFR (MDRD) Non-Af 65 BUN/Creatinine Ratio 10.2 Glucose 134 H Calcium 9.6 Urine Color Cancelled Yellow Urine Clarity Cancelled Cloudy Urine pH Cancelled 6.5 Ur Specific Bone Gap Cancelled 1.020 U Specif Grav (Refrac) Cancelled Urine Protein Cancelled 30 H Urine Glucose (UA) Cancelled Normal Urine Ketones Cancelled 15 H Urine Occult Blood Cancelled 150 H Urine Nitrite Cancelled Negative Urine Bilirubin Cancelled Negative Urine Urobilinogen Cancelled Normal Ur Leukocyte Esterase Cancelled 25 H Urine RBC Cancelled 0-5 SEEN Urine WBC Cancelled 0-5 SEEN Ur Squamous Epith Cells Cancelled 0-5 SEEN Ur Transition Epith Cell Cancelled Ur Renal Epithelial Cell Cancelled Calcium Oxalate Crystal Cancelled Uric Acid Crystals Cancelled Triple Phos Crystals Cancelled Other Crystals Cancelled Amorphous Sediment Cancelled Urine Bacteria Cancelled 3+ Hyaline Casts Cancelled 0-5 SEEN Fine Granular Casts Cancelled Coarse Granular Casts Cancelled Waxy Casts Cancelled RBC Casts Cancelled WBC Casts Cancelled Urine Mucus Cancelled 1+ Urine Trichomonas Cancelled Urine Yeast Cancelled Radiography Diagnostic Testing: Clinical Impression(s) from Imaging Studies Abdomen/Pelvis CT 01/22/25 05:46 IMPRESSION: 2 mm distal left ureteral stone approximately 1 cm from the left UVJ with mild left hydroureteronephrosis and mild left perinephric stranding. One or more dose reduction techniques were used (e.g., Automated exposure control, adjustment of the mA and/or kV according to patient size, use of iterative reconstruction technique). Reading Location: [facility] Discharge Plan Triage Chief Complaint: Flank Pain ED Provider: Dhiraj Ansari Dx/Rx/DC Orders Clinical Impression: Urolithiasis, Renal colic on left side Instructions: ED Kidney Stone with Pain Prescriptions: New oxycodone-acetaminophen 5-325 mg tablet 1 tab PO Q6H PRN PRN (Reason: Pain) 3 Days Qty: 12 0RF ibuprofen 600 mg tablet 600 mg PO Q6H PRN PRN (Reason: pain) Qty: 20 0RF ondansetron 4 mg tablet,disintegrating 4 mg PO Q8H PRN PRN (Reason: Nausea) Qty: 10 0RF No Action epinephrine 0.3 mg/0.3 mL auto-injector 0.3 mg IM .once PRN (Reason: anaphylaxis) Qty: 2 0RF clobetasol 0.05 % ointment 1 applic TOPICAL BID Patient Comments: Apply to affected area two times a day. oxycodone-acetaminophen [Percocet] 5-325 mg tablet 1 tab PO Q8H PRN (Reason: pain) 3 Days Qty: 10 0RF prednisone 50 mg tablet 50 mg PO DAILY Qty: 6 0RF ondansetron HCl 4 mg tablet 4 mg PO TID PRN (Reason: nausea and vomiting) Qty: 21 0RF cephalexin 500 mg capsule 500 mg PO TID 7 Days Qty: 21 0RF tamsulosin [Flomax] 0.4 mg capsule 0.4 mg PO DAILY 14 Days Qty: 14 0RF hydrocodone-acetaminophen 5-325 mg tablet 1 tab PO Q6H PRN (Reason: pain) 5 Days Qty: 20 0RF ketorolac 10 mg tablet 10 mg PO 4X/DAY PRN (Reason: pain) 5 Days Qty: 20 0RF Primary Care Provider: Emma Young NP Referrals: Chetan Mckeon MD [Med Staff - Active Staff] - 1 Week Emma Young NP, [employer] [Primary Care Provider] - Activity Restrictions/Additional Instructions: 2 mm left distal ureteral stone. Take medication as prescribed. Follow-up with If symptoms not controlled medications, return to ED for reevaluation. Linda. Print Language: Indonesian Disposition Disposition: Home, Self Care Discharge Date/Time: 01/22/25 09:24
[2025-01-22] MEDS: 0.9% Normal Saline (500mL Bag) 500 ML 999 ML IV (06:04)
[2025-01-22 06:11] LABS: Anion Gap 8 (5-15); BUN 13 mg/dL (7-18); BUN/Creat Ratio 10.2 RATIO (10-20); Calcium,Total 9.6 mg/dL (8.5-10.1); Chloride 103 mmol/L (98-107); Creatinine, Serum 1.27 mg/dL (0.70-1.30); EST Glomerular Filtration Rate 65 mL/min (>60); Est Glom Filt Rate - Afr Amer 79 mL/min (>60); Estimated Creatinine Clearance 64.57 ml/min; Glucose 134 mg/dL (74-106); Potassium 3.8 mmol/L (3.5-5.1); Sodium Level 136 mmol/L (136-145)
[2025-01-22 07:44] VITALS: BP 138/79; PULSE 84; RESP 16; O2SAT 97
[2025-01-22 08:41] LABS: Color, Urine Yellow (Yellow); Glucose, Dipstick Normal (Normal); Ketone-Dipstick 15 mg/dl (Negative); Leukocyte Esterase-Dipstick 25 /ul (Negative); Nitrite-Dipstick Negative (Negative); Occult Blood-Urine 150 /ul (Negative); Protein-Dipstick 30 mg/dl (Negative); Urine Bilirubin Dipstick Negative (Negative); Urine Clarity Cloudy (Clear); Urine Urobilinogen Normal (Normal); Urine pH 6.5 (5.0 - 8.0)
[2025-01-22 08:52] LABS: Bacteria 3+ /hpf (None Seen); Hyaline Cast 0-5 SEEN /lpf (0-5); Mucous, Urine 1+ /hpf (<or=2+); Red Blood Cells-Urine 0-5 SEEN /hpf (0-5); Squamous Epithelial Cells - UA 0-5 SEEN /hpf (0-5); White Blood Cells 0-5 SEEN /hpf (0-5)
[2025-01-22 09:11] VITALS: BP 124/76; PULSE 71; RESP 15; O2SAT 98
[2025-01-22 09:23] VITALS: BP 125/79; PULSE 84; RESP 16; TEMP 36.2; O2SAT 99
== END 2025-01-22 09:24 | disposition home or self-care (01) ==
PROVIDERS: Emergency Provider Emergency Medicine; PCP Internal Medicine; Visit Provider Emergency Medicine
DX: N13.2 Hydronephrosis with renal and ureteral calculous obstruction (principal); N23 Unspecified renal colic
CPT/HCPCS: 74176; 80048; 81001; 85025; 87086; 96361; 96374; 96375; 96376; 99282; A4216; J2405

== ENCOUNTER 2025-01-25 11:32 | Emergency (ER) | payer OTHER, SELFPAY ==
[2025-01-25 11:32] VITALS: BP 135/80; PULSE 75; RESP 16; TEMP 36.7; O2SAT 100; BMI 23.3
[2025-01-25 12:42] LABS: Absolute Lymphocyte Count 1.37 X10^3/uL (0.83-4.51); Absolute Neutrophil Count 7.7 X10^3/uL (2.0-7.7); Basophil# 0.03 X10^3/uL; Basophil% 0.3 % (0-1); Eosinophil# 0.11 X10^3/uL; Eosinophils% 1.1 % (0-5); Hematocrit 39.3 % (40-54); Hemoglobin 13.2 g/dL (13.0-16.5); Lymphocyte # 1.37 X10^3/ul (0.83-4.51); Lymphocyte % 13.3 % (19-41); Mean Corp Hgb Conc 33.6 g/dL (32-36); Mean Corpuscular Hgb 30.8 pg (27.0-32.0); Mean Corpuscular Volume 91.8 fL (80-94); Mean Platelet Vol. 9.8 fl (6.2-12.0); Monocyte% 10.7 % (0-10); NRBC Flagged by Analyzer 0 % (0-5); Neutrophil # 7.67 X10^3/uL (2.7-7.7); Neutrophil % 74.2 % (47-70); Platelet Count 214 K/mm3 (150-450); RBC Distribution Width CV 12.5 % (11.6-14.6); RBC Distribution Width SD 41.7 fl (35.1-43.9); Red Blood Count 4.28 M/mm3 (4.6-6.2); White Blood Count 10.3 K/mm3 (4.4-11.0)
--- NOTE | 2025-01-25 12:47 | EX.ED.DYSGE1 ---
HPI History of Present Illness Chief Complaint: Flank Pain Narrative Narrative: 44-year-old male past medical history of previous kidney stones, last being 4 to 5 months ago presents with continued pain in his left flank. Of note, he was seen on Wednesday, 4 days ago and diagnosed with a kidney stone on the left. He is unable to take the oxycodone that was given to him because it makes him sick. He has had increasing pain especially over the last 24 hours in the left flank. He states he usually passes kidney stones after a day. This particular stone is 2 mm. He called the urologist office for follow-up and has an appointment next week. He presents mainly for pain control. No hematuria, no fevers or chills. [facility] Medical History Rotator cuff arthropathy of both shoulders Kidney stone Home Medications ?Medication ?Instructions ?Recorded ?Last Taken ?Type epinephrine 0.3 mg/0.3 mL 0.3 mg (0.3 mL) IM .once PRN 07/13/21 Unknown Rx injection, auto-injector anaphylaxis #2 ea clobetasol 0.05 % topical ointment 1 applic topical BID 12/31/23 Unknown History oxycodone-acetaminophen 5 mg-325 1 tab PO Q8H PRN pain 3 days #10 12/31/23 Unknown Rx mg tablet (Percocet) tabs prednisone 50 mg tablet 50 mg PO DAILY #6 tabs 12/31/23 Unknown Rx cephalexin 500 mg capsule 500 mg PO TID 7 days #21 caps 09/10/24 Unknown Rx hydrocodone-acetaminophen 5-325mg 1 tab PO Q6H PRN pain 5 days #20 09/10/24 Unknown Rx 5mg-325mg tabs ketorolac 10 mg tablet 10 mg PO 4X/DAY PRN pain 5 days 09/10/24 Unknown Rx #20 tabs ondansetron HCl 4 mg tablet 4 mg PO TID PRN nausea and 09/10/24 Unknown Rx vomiting #21 tabs tamsulosin 0.4 mg capsule (Flomax) 0.4 mg PO DAILY 14 days #14 caps 09/10/24 Unknown Rx ibuprofen 600 mg tablet 600 mg PO Q6H PRN PRN pain #20 01/22/25 Unknown Rx TABLETS ondansetron 4 mg disintegrating 4 mg PO Q8H PRN PRN Nausea #10 tabs 01/22/25 Unknown Rx tablet oxycodone-acetaminophen 5 mg-325 1 tab PO Q6H PRN PRN Pain 3 days 01/22/25 Unknown Rx mg tablet #12 TABLETS hydrocodone 5 mg-acetaminophen 300 1 tab PO Q6H PRN pain 3 days #10 01/25/25 Unknown Rx mg tablet tabs tamsulosin 0.4 mg capsule 0.4 mg PO QHS #10 caps 01/25/25 Unknown Rx Allergy/AdvReac Type Severity Reaction Status Date / Time meperidine (From Demerol) Allergy Mild Vomiting Verified 01/22/25 05:32 bee venom protein (honey bee) Allergy Anaphylaxis Verified 01/22/25 05:32 Social History Smoking Status: Never smoker ROS ROS ED ROS Narrative Review of systems positive for left flank pain and low back pain. No fevers or chills, no nausea or vomiting. No exacerbating or alleviating factors. No hematuria or dysuria. EXAM Physical Exam Narrative Exam Narrative: Afebrile. Vital signs noted. Nontoxic-appearing. Cardiovascular examination feels a regular rate and rhythm. Lungs are clear to auscultation bilaterally. Abdomen is soft and nontender with tachycardia or rebound. Positive bowel sounds. Questionable tenderness to percussion in left low back, but not over the CVA. Neurological examination nonfocal and nonlateralizing. Const Vital Signs: 01/25/25 11:32 01/25/25 13:32 Temperature 98.1 F Temperature Source Temporal Pulse Rate 75 72 Respiratory Rate 16 16 Blood Pressure 135/80 H 132/79 H Blood Pressure Mean 98 96 Pulse Ox 100 99 Oxygen Delivery Method Room Air MDM MDM MDM Narrative Medical decision making narrative: I reviewed the patient's prior laboratories and workup from the ED. He had slightly elevated white count. He did have a 2 mm stone close to the left UVJ. He states that the morphine helped last time as well as Toradol. He was administered this as well as ondansetron. The goal will be pain control as I do not feel that repeat imaging in the form of CT scan is indicated currently. I reviewed his laboratory work from today that was obtained through protocol. He has normal white count of 10.3 with hemoglobin normal at 13.2, platelet count 214. BUN of 24 and creatinine 1.8. This is a slight increase of his creatinine from 4 days ago when it was 1.2. Urinalysis is negative for infection on the macro analysis with negative nitrites and negative leukocytes. Urinalysis microanalysis shows no evidence of infection. I do not feel antibiotics are indicated. Upon repeat examination, the patient's pain level has improved. He states he cannot take oxycodone because it makes him sick. In review of his previous visit, he had been given prescriptions for oxycodone, ibuprofen, and ondansetron. He states he had not picked up the ibuprofen. I offered to write him Toradol which she had in the past but as they are both NSAIDs, he states he will picker feeder the ibuprofen. Additionally, I will add Flomax. He was told to take the NSAIDs instead of strict opiates for pain control. I feel he can be discharged to follow-up. I discussed patient with Dr. Mckeon. It was not felt that he needed admission or stenting and that the patient will pass the stone, and should follow-up on Wednesday as scheduled. Return instructions to the emergency department were reviewed. Disposition is discharged home in stable condition. History & Record Review Discussion w/independent historian: Patient Additional record(s) reviewed:: Prior ED visit and Prior labs Lab Data Attestation: I reviewed the patient's lab results. Labs: Laboratory Results - last 24 hr 01/25/25 01/25/25 12:32 14:40 WBC 10.3 RBC 4.28 L Hgb 13.2 Hct 39.3 L MCV 91.8 MCH 30.8 MCHC 33.6 RDW Std Deviation 41.7 RDW Coeff of Latosha 12.5 Plt Count 214 MPV 9.8 Immature Gran % (Auto) 0.400 Neut % (Auto) 74.2 H Lymph % (Auto) 13.3 L [place] % (Auto) 10.7 H Eos % (Auto) 1.1 Baso % (Auto) 0.3 Absolute Neuts (auto) 7.7 Absolute Lymphs (auto) 1.37 Nucleated RBC % 0 Sodium 137 Potassium 4.4 Chloride Direct 102 Carbon Dioxide 25.4 Anion Gap 10 BUN 24 H Creatinine 1.8 H Estim Creat Clear Calc 45.56 Est GFR (MDRD) Non-Af 47 L BUN/Creatinine Ratio 13.6 Glucose 96 Calcium 9.9 Urine Color Straw Urine Clarity Clear Urine pH 7.0 Ur Specific [place] 1.005 Urine Protein Negative Urine Glucose (UA) Normal Urine Ketones Negative Urine Occult Blood Negative Urine Nitrite Negative Urine Bilirubin Negative Urine Urobilinogen Normal Ur Leukocyte Esterase Negative Urine RBC 0 SEEN Urine WBC 0 SEEN Ur Squamous Epith Cells 0 SEEN Urine Bacteria 0 SEEN Urine Mucus 0 SEEN Discharge Plan Triage Chief Complaint: Flank Pain ED Provider: Van Trivedi Dx/Rx/DC Orders Clinical Impression: Renal colic on left side, Urolithiasis Instructions: ED Kidney Stone with Pain Prescriptions: New tamsulosin 0.4 mg capsule 0.4 mg PO QHS Qty: 10 0RF hydrocodone-acetaminophen 5-300 mg tablet 1 tab PO Q6H PRN (Reason: pain) 3 Days Qty: 10 0RF No Action epinephrine 0.3 mg/0.3 mL auto-injector 0.3 mg IM .once PRN (Reason: anaphylaxis) Qty: 2 0RF clobetasol 0.05 % ointment 1 applic TOPICAL BID Patient Comments: Apply to affected area two times a day. oxycodone-acetaminophen [Percocet] 5-325 mg tablet 1 tab PO Q8H PRN (Reason: pain) 3 Days Qty: 10 0RF prednisone 50 mg tablet 50 mg PO DAILY Qty: 6 0RF ondansetron HCl 4 mg tablet 4 mg PO TID PRN (Reason: nausea and vomiting) Qty: 21 0RF cephalexin 500 mg capsule 500 mg PO TID 7 Days Qty: 21 0RF tamsulosin [Flomax] 0.4 mg capsule 0.4 mg PO DAILY 14 Days Qty: 14 0RF hydrocodone-acetaminophen 5-325 mg tablet 1 tab PO Q6H PRN (Reason: pain) 5 Days Qty: 20 0RF ketorolac 10 mg tablet 10 mg PO 4X/DAY PRN (Reason: pain) 5 Days Qty: 20 0RF oxycodone-acetaminophen 5-325 mg tablet 1 tab PO Q6H PRN PRN (Reason: Pain) 3 Days Qty: 12 0RF ibuprofen 600 mg tablet 600 mg PO Q6H PRN PRN (Reason: pain) Qty: 20 0RF ondansetron 4 mg tablet,disintegrating 4 mg PO Q8H PRN PRN (Reason: Nausea) Qty: 10 0RF Primary Care Provider: Emma Young NP Referrals: Chetan Mckeon MD [Med Staff - Active Staff] - Keep Connie appointment Emma Young NP, [employer] [Primary Care Provider] - Activity Restrictions/Additional Instructions: 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 Start taking Flomax nightly. Your prescription for narcotics has been changed to hydrocodone, but you may not be able to pick it up until tomorrow. You can also picker feeder the prescription for ondansetron which you were given on Wednesday. Follow-up with urology as scheduled on this coming Wednesday at 8 AM. Return to the emergency department with fever, increased pain even after taking medications, new or worsening symptoms. Print Language: Nigerien Disposition Disposition: Home, Self Care
[2025-01-25 13:01] LABS: Anion Gap 10 (5-15); BUN 24 mg/dL (4-19); BUN/Creat Ratio 13.6 RATIO (10-20); Calcium 9.9 mg/dL (7.6-11.0); Carbon Dioxide 25.4 mmol/L (22.0-29.0); Chloride 102 mmol/L (96-108); Creatinine, Serum 1.8 mg/dL (0.8-1.3); EST Glomerular Filtration Rate 47 (>60); Estimated Creatinine Clearance 45.56 ml/min; Glucose 96 mg/dL (70-99); Potassium 4.4 mmol/L (3.3-5.1); Sodium Level 137 mmol/L (133-145)
[2025-01-25] MEDS: Ondansetron 4 MG/2 ML Vial IV (13:10)
[2025-01-25] MEDS: Morphine 4 MG/ML Syringe IV (13:10)
[2025-01-25] MEDS: Ketorolac 30 MG/ML Syringe IV (13:10)
[2025-01-25 13:32] VITALS: BP 132/79; PULSE 72; RESP 16; O2SAT 99
[2025-01-25 14:46] LABS: Bacteria 0 SEEN /hpf (None Seen); Mucous, Urine 0 SEEN /hpf (<or=2+); Squamous Epithelial Cells - UA 0 SEEN /hpf (0-5); White Blood Cells 0 SEEN /hpf (0-5)
[2025-01-25 14:48] LABS: Color, Urine Straw (Yellow); Glucose, Dipstick Normal (Normal); Ketone-Dipstick Negative (Negative); Leukocyte Esterase-Dipstick Negative /ul (Negative); Nitrite-Dipstick Negative (Negative); Occult Blood-Urine Negative /ul (Negative); Protein-Dipstick Negative (Negative); Specific Gravity, Urine 1.005 (1.002-1.030); Urine Bilirubin Dipstick Negative (Negative); Urine Clarity Clear (Clear); Urine Urobilinogen Normal (Normal)
[2025-01-25 15:10] LABS: Red Blood Cells-Urine 0 SEEN /hpf (0-5)
[2025-01-25 15:56] VITALS: BP 132/87; PULSE 79; RESP 16; O2SAT 99
== END 2025-01-25 15:45 | disposition home or self-care (01) ==
PROVIDERS: Emergency Provider Emergency Medicine; PCP Internal Medicine; Visit Provider Emergency Medicine
DX: N20.9 Urinary calculus, unspecified (principal)
CPT/HCPCS: 80048; 81001; 85025; 96374; 96375; 96376; 99282; A4216; J2405

== ENCOUNTER → 2025-01-29 | Outpatient (CLI) | payer SELFPAY ==
--- NOTE | 2025-01-29 08:50 | RAD_ITS ---
EXAM: XR Abdomen, 1 View CLINICAL INDICATION: TECHNIQUE: Frontal supine view of the abdomen/pelvis. COMPARISON: No relevant prior studies available. FINDINGS: GASTROINTESTINAL TRACT: Fecal retention in the colon consistent with constipation. No dilation. BONES/JOINTS: Unremarkable. No acute fracture. RAD/Abdomen Single View IMPRESSION: Fecal retention in the colon consistent with constipation. Reading Location: [facility]
== END | disposition home or self-care (01) ==
PROVIDERS: PCP Internal Medicine; Referring Provider Urology; Visit Provider Urology
DX: N20.1 Calculus of ureter (principal)
CPT/HCPCS: 74018